=== PATIENT | female | born 1985 | race Caucasian/White ===

== ENCOUNTER 2016-12-09 08:16 | Day surgery (SDC) | payer MEDICAID ==
[~2016-12-09 08:16] MED LIST: ACETAMINOPHEN 1000MG/100 ML PREMIX IV ONE
[2016-12-09] MEDS ORDERED: FENTANYL PF 100MCG/2ML VIAL IV ONE (13:33)
[2016-12-09] MEDS ORDERED: OXYCODONE HCL/APAP 5MG/325MG TABLET PO ONE (13:33)
[2016-12-09] MEDS ORDERED: MEPERIDINE 50 MG/1 ML VIAL IVP ONE (13:50)
[2016-12-09] MEDS ORDERED: LIDOCAINE 2% MDV (20MG/ML) 20ML VIAL IV ONE (13:50)
[2016-12-09] MEDS ORDERED: SEVOFLURANE 250 ML INH ONE (13:50)
[2016-12-09] MEDS ORDERED: PROPOFOL 10 MG/ML VIAL IV ONE (13:50)
[2016-12-09] MEDS ORDERED: KETOROLAC 30 MG/ML VIAL IVP ONE (13:50)
--- NOTE | 2016-12-09 16:32 | Operative Note ---
DATE OF SURGERY: 12/09/16 PREOPERATIVE DIAGNOSIS: CARPAL TUNNEL SYNDROME OF THE LEFT WRIST. POSTOPERATIVE DIAGNOSIS: CARPAL TUNNEL SYNDROME OF THE LEFT WRIST. OPERATIVE PROCEDURE: DECOMPRESSION LEFT MEDIAN NERVE OF THE WRIST USING 3.5 LOOP MAGNIFICATION. SURGEON: PORFIRIO CUEVAS D.O. REFERRING PHYSICIAN: REJI MCCARTY M.D. DESCRIPTION: This 31-year-old female was taken to the Operating Room and placed in the supine position on the operating room table where general anesthesia was induced. The left upper extremity was elevated. It was prepped with Hibiclens and draped in the usual sterile fashion. It was exsanguinated and the tourniquet inflated to 250 mmHg. A palmar incision was then utilized dissection from the flexor crease of the wrist down to the base of the webspace of the thumb through the skin and subcutaneous tissue. The palmar fascia was then divided inline with the skin incision. The flexor retinaculum was then easily identified. It was punctured and split to its proximal margin and then with the contents of the carpal tunnel under direct vision, the transverse carpal ligament was transected along its ulnar border. The radial flap was raised to expose the entire median nerve under the transverse carpal ligament. The recurrent motor branch was easily identified and somewhat more ulnar than its normal position but still was intact. The nerve appeared to be grossly normal. The wound was irrigated and the tourniquet released. Hemostasis obtained with the electrocautery. The wound again irrigated with lactated Ringer solution. The wound was then closed with interrupted 6-0 nylon suture and sterile dressings were applied with the wrist in slight dorsal flexion and the thumb in an adducted position. Porfirio Cuevas D.O. Date & Time cc: Reji Mccarty M.D. JOB NUMBER: [id number] MTDD
== END 2016-12-09 11:20 | disposition home or self-care (01) ==
LOC: SUR 08:16
PROVIDERS: ATTEND Orthopaedic Surgery
DX: G56.02 Carpal tunnel syndrome, left upper limb (principal); E03.9 Hypothyroidism, unspecified; J44.9 Chronic obstructive pulmonary disease, unspecified; J45.909 Unspecified asthma, uncomplicated
CPT/HCPCS: 64721; 01810; J1885; J3010

== ENCOUNTER 2016-12-12 14:42 | Emergency (ER) | payer MEDICAID ==
--- NOTE | 2016-12-12 14:52 | Emergency Department Record ---
History of Present Illness - General Chief complaint: Extremity Problem Stated complaint: left hand sx 12/09/16 splint broke Time Seen by Provider: 12/12/16 14:52 Source: Patient Mode of Arrival: Ambulatory Limitations: No limitations - History of Present Illness Initial comments: The patient is here due to having wrist surgery 3 days ago and now she got her splint wet so she removed it. She denies any problems. MD Complaint: Other Onset/Timin -: Days(s) Location: Left, Hand History of Same: Yes Severity scale (1-10): 3 Quality: Aching Consistency: Constant - Related Data Home Medications Medication Instructions Recorded Confirmed Last Taken Albuterol Sulfate [Proair Hfa] 1 - 2 puff IH .EVERY 4-6 HOURS PRN 02/06/1612/12 1 Day Ago Beclomethasone Dipropionate [Qvar] 2 puff IH DAILY 02/06/16 12/12/16 1 Day Ago Levothyroxine Sodium [Synthroid] 125 mcg PO DAILY 02/06/16 12/12/16 1 Day Ago Gabapentin [Neurontin] 100 mg PO TID 07/09/16 12/12/16 1 Day Ago Oxycodone HCl/Acetaminophen 1 tab PO Q6H PRN 12/12/16 12/12/16 12/12/16 [Percocet 5mg/325mg] Allergies Allergy/AdvReac Type Severity Reaction Status Date / Time hydrocodone bitartrate Allergy Unknown PT UNSURE Verified 12/12/16 14:49 OF REACTION Travel Screening - Travel/Exposure Within Last 30 Days Have you traveled within the last 30 days?: No - Travel/Exposure Within Last Year Have you traveled outside the [place] in the last year?: No - Additonal Travel Details Have you been exposed to anyone with a communicable illness?: No - Travel Symptoms Symptom Screening: None Review of Systems Constitutional: Denies: Chills, Fever Eyes: Denies: Eye discharge ENT: Denies: Congestion Respiratory: Denies: Cough Past Medical History - SOCIAL HISTORY Smoking Status: Current every day smoker Alcohol Use: None Drug Use: None - RESPIRATORY Hx Respiratory Disorders: Yes Hx COPD: Yes Hx Pneumonia: Yes Hx Sleep Apnea: Yes Hx of CPAP: Yes (sometimes) - CARDIOVASCULAR Hx Cardio Disorders: Yes Hx CHF: Yes (after walking pneumonia; not sure of dx) Hx Hypertension: Yes Comment:: fluid around heart - NEURO Hx Neuro Disorders: Yes Hx Headaches: Yes Hx of Migraines: Yes - GI Hx GI Disorders: Yes Hx Reflux: Yes - Hx Genitourinary Disorders: No - ENDOCRINE Hx Endocrine Disorders: Yes Hx Diabetes: No Hx Thyroid Disease: Yes - MUSCULOSKELETAL Hx Musculoskeletal Disorders: Yes - PSYCH Hx Psych Problems: Yes Hx Behavior Problems: Yes (biplolar ? quit meds years ago?) Hx Depression: Yes - HEMATOLOGY/ONCOLOGY Hx Hematology/Oncology Disorders: No Family Medical History Any Significant Family History?: Yes Hx Cancer: Grandparents Hx Diabetes: Grandparents Hx Heart Disease: Grandparents *Heart Comment: heart failure Hx HTN: Father Hx Seizures: Grandparents Hx Stroke: Grandparents *Stroke Comment: grandmother Physical Exam - General General Appearance: Alert, Oriented x3, Cooperative, No acute distress - Head Head exam: Atraumatic, Normocephalic, Normal inspection - Eye Eye exam: Normal appearance, PERRL - Extremities Extremities exam: Other (The hand is NVI distally.). negative: Normal inspection (Post op changes to the anterior wrist due to the carpal tunnel surgery. No drainage or erythema present.) Course Vital Signs 12/12/16 14:44 Temperature 97.7 F Pulse Rate 92 H Respiratory 16 Rate Blood Pressure 125/82 Pulse Ox 99 - Reevaluation(s) Reevaluation #1: We did discuss the case with Dr. Dean and he would like the patient back in a splint and continue with her previous instructions. 12/12/16 15:01 Disposition Disposition: Discharge Clinical Impression: Encounter for Postoperative Wound Check Disposition: Home, Self-Care Condition: (1) Good Instructions: Cubital Tunnel Syndrome (ED) Additional Instructions: Continue your previous discharge post op instructions. Forms: Patient Portal Access Time of Disposition: 15:03
== END 2016-12-12 15:20 | disposition home or self-care (01) ==
LOC: ER 14:42
DX: Z46.89 Encounter for fitting and adjustment of other specified devices (principal)
CPT/HCPCS: 99282

== ENCOUNTER 2017-01-12 17:08 | Emergency (ER) | payer MEDICAID ==
--- NOTE | 2017-01-12 18:42 | Emergency Department Record ---
History of Present Illness - General Stated Complaint: HAND INJURY Time Seen by Provider: 01/12/17 18:36 Source: Patient Mode of Arrival: Ambulatory Limitations: No limitations - History of Present Illness Initial Comments: The patient is here due to L hand pain for 10 days since she fell on it. She did have a carpal tunnel surgery last month and now has a very small opening in the inferior incision area. She denies any numbness, tingling, fever or chills but is expressing a very small amount of purulent material from the opening in the wound. MD Complaint: Injury to:: Left, Hand Onset/Timin -: Days(s) - Related Data Home Medications Medication Instructions Recorded Confirmed Last Taken Albuterol Sulfate [Proair Hfa] 1 - 2 puff IH .EVERY 4-6 HOURS PRN 02/06/1612/1201/12/17 Beclomethasone Dipropionate [Qvar] 2 puff IH DAILY 02/06/16 12/12/16 01/12/17 Levothyroxine Sodium [Synthroid] 125 mcg PO DAILY 02/06/16 12/12/16 01/12/17 Gabapentin [Neurontin] 100 mg PO TID 07/09/16 12/12/16 01/12/17 Previous Rx's Medication Instructions Recorded Cephalexin [Keflex] 500 mg PO QID #28 cap 01/12/17 Allergies Allergy/AdvReac Type Severity Reaction Status Date / Time hydrocodone bitartrate Allergy Unknown PT UNSURE Verified 01/12/17 18:42 OF REACTION Review of Systems Constitutional: Denies: Chills, Fever Eyes: Denies: Eye discharge ENT: Denies: Congestion Respiratory: Denies: Cough, Dyspnea Past Medical History - SOCIAL HISTORY Smoking Status: Current every day smoker Drug Use: None - RESPIRATORY Hx Respiratory Disorders: Yes Hx COPD: Yes Hx Pneumonia: Yes Hx Sleep Apnea: Yes Hx of CPAP: Yes (sometimes) - CARDIOVASCULAR Hx Cardio Disorders: Yes Hx CHF: Yes (after walking pneumonia; not sure of dx) Hx Hypertension: Yes Comment:: fluid around heart - NEURO Hx Neuro Disorders: Yes Hx Headaches: Yes Hx of Migraines: Yes - GI Hx GI Disorders: Yes Hx Reflux: Yes - Hx Genitourinary Disorders: No - ENDOCRINE Hx Endocrine Disorders: Yes Hx Diabetes: No Hx Thyroid Disease: Yes - MUSCULOSKELETAL Hx Musculoskeletal Disorders: Yes - PSYCH Hx Psych Problems: Yes Hx Behavior Problems: Yes (biplolar ? quit meds years ago?) Hx Depression: Yes - HEMATOLOGY/ONCOLOGY Hx Hematology/Oncology Disorders: No Family Medical History Hx Cancer: Grandparents Hx Diabetes: Grandparents Hx Heart Disease: Grandparents *Heart Comment: heart failure Hx HTN: Father Hx Seizures: Grandparents Hx Stroke: Grandparents *Stroke Comment: grandmother Physical Exam - General General Appearance: Alert, Oriented x3, Cooperative, No acute distress - Head Head exam: Atraumatic, Normocephalic, Normal inspection - Eye Eye exam: Normal appearance, PERRL - Extremities Extremities exam: Full ROM, Tenderness (There is mild tenderness around the carpal tunnes incision area. There is no warmth, erythema, or any drainage present. The L hand is NVI.). negative: Normal inspection (There is a recent carpal tunnes surgery incision present over the proximal palmar area. There is no erythema, or swelling present.) Course - Reevaluation(s) Reevaluation #1: I did explain the xray results with the patient and the need for F/U. I also did discuss the case with Dr. Dean and he will see her the week after next for further evaluation. 01/12/17 19:06 Medical Decision Making - Data Complexity MDM Data: X-Ray Ordered and/or Reviewed - Radiology Data Radiology results: Report reviewed (L hand: Neg) Disposition Disposition: Discharge Clinical Impression: Postoperative Pain Disposition: Home, Self-Care Condition: (1) Good Instructions: Hand Sprain (ED) Additional Instructions: Please take Tylenol for pain and take the Keflex as directed. Please keep the hand wound clean and covered with Abx ointment during the day and open at night. Please see DR. Dean as directed. Return to the ER if worse. Prescriptions: Cephalexin [Keflex] 500 mg PO QID #28 cap Referrals: [facility] [Provider Group] Time of Disposition: 19:08
== END 2017-01-12 19:17 | disposition home or self-care (01) ==
LOC: ER 17:08
DX: G89.18 Other acute postprocedural pain (principal); M79.642 Pain in left hand
CPT/HCPCS: 99283

== ENCOUNTER 2017-01-20 20:21 | Emergency (ER) | payer MEDICAID ==
--- NOTE | 2017-01-20 21:14 | Emergency Department Record ---
History of Present Illness - General Chief complaint: Facial Swelling Stated complaint: SWELLONG IN FACE AND HANDS Time Seen by Provider: 01/20/17 20:57 Source: Patient Mode of Arrival: Ambulatory Limitations: No limitations - History of Present Illness Initial Comments: 31 yo female presents with a feeling of swelling in her face, hands and feet for about 10 days. She has had this at times in the past. It is worse in the mornings. No redness. No cough or shortness of breath. No history of a diagnosed cause of this in the past. She has been calling Dr Mccarty for an appointment. No cardiac history, no connective disease history, no renal or hepatic history. She if very fatigued. She is cold frequently. She states she is sleeping all day. The swelling improves as the day goes by then returns in the morning. MD Complaint: Facial swelling Exposure: Unknown Symptoms: Facial swelling - Related Data Home Medications Medication Instructions Recorded Confirmed Last Taken Albuterol Sulfate [Proair Hfa] 1 - 2 puff IH .EVERY 4-6 HOURS PRN 02/06/1601/2001/12/17 Beclomethasone Dipropionate [Qvar] 2 puff IH DAILY 02/06/16 01/20/17 01/12/17 Levothyroxine Sodium [Synthroid] 125 mcg PO DAILY 02/06/16 01/20/17 01/12/17 Gabapentin [Neurontin] 100 mg PO TID 07/09/16 01/20/17 01/12/17 Previous Rx's Medication Instructions Recorded Cephalexin [Keflex] 500 mg PO QID #28 cap 01/12/17 Allergies Allergy/AdvReac Type Severity Reaction Status Date / Time hydrocodone bitartrate Allergy Unknown PT UNSURE Verified 01/12/17 18:42 OF REACTION Travel Screening - Travel/Exposure Within Last 30 Days Have you traveled within the last 30 days?: No - Travel Symptoms Symptom Screening: None Review of Systems Constitutional: Reports: Malaise, Weakness. Denies: Chills, Fever Eyes: Denies: Eye discharge ENT: Denies: Congestion, Throat pain Respiratory: Denies: Cough, Dyspnea, Hemoptysis, Stridor, Wheezes Cardiovascular: Reports: Edema. Denies: Chest pain, Palpitations, Syncope Endocrine: Reports: Heat or cold intolerance. Denies: Fatigue Gastrointestinal: Reports: Constipation. Denies: Abdominal pain, Diarrhea, Nausea, Vomiting Genitourinary: Denies: Dysuria, Urgency Musculoskeletal: Denies: Arthralgia, Back pain, Myalgia Skin: Denies: Bruising, Change in color, Rash Neurological: Denies: Confusion, Headache Psychiatric: Reports: Other (Sleeps all day). Denies: Anxiety, Auditory hallucinations, Homicidal thoughts, Visual hallucinations Hematological/Lymphatic: Denies: Blood Clots, Easy bleeding, Easy bruising, Swollen glands Past Medical History - SOCIAL HISTORY Smoking Status: Current every day smoker - RESPIRATORY Hx Respiratory Disorders: Yes Hx COPD: Yes Hx Pneumonia: Yes Hx Sleep Apnea: Yes Hx of CPAP: Yes (sometimes) - CARDIOVASCULAR Hx Cardio Disorders: Yes Hx CHF: Yes (after walking pneumonia; not sure of dx) Hx Hypertension: Yes Comment:: fluid around heart - NEURO Hx Neuro Disorders: Yes Hx Headaches: Yes Hx of Migraines: Yes - GI Hx GI Disorders: Yes Hx Reflux: Yes - Hx Genitourinary Disorders: No - ENDOCRINE Hx Endocrine Disorders: Yes Hx Diabetes: No Hx Thyroid Disease: Yes - MUSCULOSKELETAL Hx Musculoskeletal Disorders: Yes - PSYCH Hx Psych Problems: Yes Hx Behavior Problems: Yes (biplolar ? quit meds years ago?) Hx Depression: Yes - HEMATOLOGY/ONCOLOGY Hx Hematology/Oncology Disorders: No Family Medical History Any Significant Family History?: Yes Hx Cancer: Grandparents Hx Diabetes: Grandparents Hx Heart Disease: Grandparents *Heart Comment: heart failure Hx HTN: Father Hx Seizures: Grandparents Hx Stroke: Grandparents *Stroke Comment: grandmother Physical Exam - General General Appearance: Alert, Oriented x3, Cooperative, No acute distress Limitations: No limitations - Head Head exam: Normal inspection. negative: Atraumatic - Eye Eye exam: PERRL, Periorbital swelling. negative: Normal appearance, Conjunctival injection, Periorbital tenderness - ENT ENT exam: Normal exam, Mucous membranes moist Ear exam: Normal external inspection Nasal Exam: Normal inspection Mouth exam: Normal external inspection Teeth exam: Normal inspection Throat exam: Normal inspection - Neck Neck exam: Normal inspection, Full ROM. negative: Tenderness - Respiratory Respiratory exam: Normal lung sounds bilaterally. negative: Rales, Respiratory distress, Rhonchi, Stridor, Wheezes - Cardiovascular Cardiovascular Exam: Regular rate, Normal rhythm, Normal heart sounds - GI/Abdominal GI/Abdominal exam: Soft. negative: Distended, Tenderness - Rectal Rectal exam: Deferred - exam: Deferred - Extremities Extremities exam: Normal inspection, Full ROM, Normal capillary refill, Other ( No pitting edema of the legs or hands). negative: Pedal edema, Tenderness - Back Back exam: Reports: Normal inspection, Full ROM, Other (No pitting edema). Denies: Muscle spasm, Rash noted, Tenderness - Neurological Neurological exam: Alert, Normal gait, Oriented X3, Reflexes normal - Psychiatric Psychiatric exam: Normal affect, Normal mood - Skin Skin exam: Dry, Intact, Normal color, Warm Course Vital Signs 01/20/17 20:48 Temperature 98.6 F Pulse Rate [ 76 Pulse Ox Probe] Respiratory 18 Rate Blood Pressure 119/84 [Left Arm] Pulse Ox 97 - Reevaluation(s) Reevaluation #1: No acute changes on the CBC, CMP, UA No protein in the urine 01/20/17 22:15 Reevaluation #2: The patient has a significantly elevated TSH She does not have any mental status changes, confusion, or overt signs to suggest thyroid coma She is very alert, sharp, well spoken and knowledgeable about her current state and PMHx. She has been hypothyroid since age 12. She has a history of Graves (5 years ago) and thyroid irradiation. 01/20/17 22:54 01/20/17 23:15 Reevaluation #3: I SHANNON Brown of [facility] endocrinology. He recommends the following Free T4, T# Place in 24 hour observation i the hospital Order Cortisol and ACTH STAT Then give Hydrocortizone 100mg Wait 5-6 hours then resume Synthroid at the normal dose of 125mcg Monitoring for tolerance and reactions, I called the lab The requested labs are send outs at this hospital This course of action not possible from [facility] given in takes 2-3 days to get results One Call called was back for transfer 01/20/17 23:37 01/20/17 23:42 Reevaluation #4: FT4 0.4 T4 4.15 T3 uptake 27 01/20/17 23:47 Reevaluation #5: I SHANNON Morgan of the Hospitalist Group We discussed the endocrine recommendations She accepts for transfer and treatment of the myxeda 01/21/17 00:16 Medical Decision Making - Lab Data Result diagrams: 01/20/17 21:19 01/20/17 21:19 Disposition Disposition: Transfer Clinical Impression: TSH elevation, Myxedema Edema Qualifiers: Edema type: unspecified Qualified Code(s): R60.9 - Edema, unspecified Hypothyroid Qualifiers: Hypothyroidism type: unspecified Qualified Code(s): E03.9 - Hypothyroidism, unspecified Disposition: Acute Care Hospital Transfer [facility] Reason For Transfer: Myxedema, special labs not available Accepting Physician: Time Discussed w/Accepting Physician: 00:19 Condition: (2) Stable Forms: Patient Portal Access Time of Disposition: 22:32
[2017-01-20 21:30] LABS: BASO % 1.6 % (0-6); EOS % 4.3 % (0-6); GRAN % 43.9 % (47-80); HEMATOCRIT 37.6 % (35.0-47.0); HEMOGLOBIN 13.3 gm/dl (11.6-16.0); LYMPH % 43.2 % (16-45); MEAN CELL VOLUME 91.7 fl (81-97); MEAN CORPUSCULAR HEMOGLOBIN 32.4 pg (27-33); MEAN CORPUSCULAR HGB CONC 35.4 g/dl (32-36); PLATELET COUNT 229 K/uL (130-400); RED CELL DISTRIBUTION WIDTH 14.6 % (11.5-14.5); WHITE BLOOD COUNT W/O DIFF 8.3 K/uL (4.2-12.2)
[2017-01-20 21:31] LABS: URINE APPEARANCE CLEAR; URINE BILIRUBIN NEGATIVE (NEGATIVE); URINE BLOOD TRACE-I (NEGATIVE); URINE COLOR YELLOW; URINE GLUCOSE (UA) NEGATIVE (NEGATIVE); URINE KETONE NEGATIVE (NEGATIVE); URINE LEUKOCYTE ESTERASE NEGATIVE (NEGATIVE); URINE NITRITE NEGATIVE (NEGATIVE); URINE PROTEIN NEGATIVE (NEGATIVE)
[2017-01-20 21:43] LABS: ALB/GLOB RATIO 1.5 (1.1-1.8); ALBUMIN 4.4 gm/dL (3.5-5.0); ALKALINE PHOSPHATASE 49 U/L (38-126); ALT/SGPT 56 U/L (9-52); AST/SGOT 48 U/L (14-36); BILIRUBIN,TOTAL 0.72 mg/dL (0.2-1.3); BLOOD UREA NITROGEN 9 mg/dL (7-17); CREATININE 0.8 mg/dL (0.52-1.04); EST GLOMERULAR FILTRATION RATE > 60 ml/min; GLUCOSE,RANDOM 105 mg/dL (70-110); TOTAL PROTEIN 7.3 gm/dL (6.3-8.2)
[2017-01-20 21:45] LABS: HCG,QUALITATIVE URINE NEGATIVE (NEGATIVE); URINE MUCUS HEAVY; URINE WBC 0 - 2 (0-2/hpf)
[2017-01-20 23:35] LABS: THYROXINE (T4) 4.15 ug/dl (5.53-11.0)
== END 2017-01-21 01:00 | disposition short-term general hospital (02) ==
LOC: ER 20:21
DX: R94.6 Abnormal results of thyroid function studies (principal); E03.9 Hypothyroidism, unspecified; R60.1 Generalized edema; R53.83 Other fatigue; J44.9 Chronic obstructive pulmonary disease, unspecified; I10 Essential (primary) hypertension; F17.210 Nicotine dependence, cigarettes, uncomplicated
CPT/HCPCS: 80053; 81001; 81025; 84436; 84439; 84443; 84479; 85025; 99285

== ENCOUNTER 2017-06-30 10:18 | Emergency (ER) | payer MEDICAID ==
[2017-06-30] MEDS ORDERED: ONDANSETRON HCL IV 4 MG/2 ML VIAL IV ONE (10:46)
[2017-06-30] MEDS ORDERED: 0.9 % SODIUM CHLORIDE 1,000 ML BAG IV ONE (10:46)
--- NOTE | 2017-06-30 10:51 | Emergency Department Record ---
History of Present Illness - General Chief Complaint: Abdominal Pain Stated Complaint: ABD PAIN Time Seen by Provider: 06/30/17 10:41 Source: Patient Mode of Arrival: Ambulatory Limitations: No limitations - History of Present Illness Initial Comments: The patient is here due to a 7 day hx of upper AP. She describes the pain as sharp and burning at times and it is associated intermittently with nausea, vomiting and diarrhea. She states if she eats anything solid she does vomit and there is blood present. She also has streaks of blood in her stools at times. There is no reported CP, SOB, fever, chills, or dysuria. She was evaluated at [facility] a week ago for the same issues and had normal labs and a CT that demonstrated a fatty liver. The patient has had her GB removed and has had a SEBAS in the past. MD Complaint: Abdominal pain Onset/Timin -: Week(s) Location: Epigastric, LUQ, RUQ Radiation: None Migration to: No migration Quality: Burning, Cramping Consistency: Intermittent Improves With: Nothing Worsens With: Eating Associated Symptoms: Hematemesis, Nausea, Vomiting - Related Data Patient : No Home Medications Medication Instructions Recorded Confirmed Last Taken Levothyroxine Sodium [Synthroid] 125 mcg PO DAILY 02/06/16 06/30/17 01/12/17 Pantoprazole Sodium [Protonix] 40 mg PO DAILY 06/30/17 06/30/17 Unknown Previous Rx's Medication Instructions Recorded Ondansetron [Zofran Odt] 4 mg SL .Q4-6H PRN #12 tab.rapdis 06/30/17 Sucralfate [Carafate] 1 gm PO QID #28 tablet 06/30/17 Allergies Allergy/AdvReac Type Severity Reaction Status Date / Time hydrocodone bitartrate Allergy Unknown PT UNSURE Verified 06/30/17 10:40 OF REACTION Travel Screening - Travel/Exposure Within Last 30 Days Have you traveled within the last 30 days?: No Review of Systems Constitutional: Denies: Chills, Fever Eyes: Denies: Eye discharge ENT: Denies: Congestion Respiratory: Denies: Cough, Dyspnea Past Medical History - SOCIAL HISTORY Smoking Status: Current every day smoker Alcohol Use: None Drug Use: None - RESPIRATORY Hx Respiratory Disorders: Yes Hx COPD: Yes Hx Pneumonia: Yes Hx Sleep Apnea: Yes Hx of CPAP: Yes (sometimes) - CARDIOVASCULAR Hx Cardio Disorders: Yes Hx Hypertension: Yes Comment:: fluid around heart - NEURO Hx Neuro Disorders: Yes Hx Headaches: Yes Hx of Migraines: Yes - GI Hx GI Disorders: Yes Hx Reflux: Yes - Hx Genitourinary Disorders: No - ENDOCRINE Hx Endocrine Disorders: Yes Hx Diabetes: No Hx Thyroid Disease: Yes - MUSCULOSKELETAL Hx Musculoskeletal Disorders: Yes - PSYCH Hx Psych Problems: Yes Hx Behavior Problems: Yes (biplolar ? quit meds years ago?) Hx Depression: Yes - HEMATOLOGY/ONCOLOGY Hx Hematology/Oncology Disorders: No Family Medical History Any Significant Family History?: Yes Hx Cancer: Grandparents Hx Diabetes: Grandparents Hx Heart Disease: Grandparents *Heart Comment: heart failure Hx HTN: Father Hx Seizures: Grandparents Hx Stroke: Grandparents *Stroke Comment: grandmother Physical Exam - General General Appearance: Alert, Oriented x3, Cooperative, No acute distress - Head Head exam: Atraumatic, Normocephalic, Normal inspection - Eye Eye exam: Normal appearance, PERRL - Neck Neck exam: Normal inspection, Full ROM. negative: Tenderness - Respiratory Respiratory exam: Normal lung sounds bilaterally. negative: Respiratory distress - Cardiovascular Cardiovascular Exam: Regular rate, Normal rhythm, Normal heart sounds - GI/Abdominal GI/Abdominal exam: Soft, Tenderness (There is mild epigastric tenderness present.). negative: Guarding, Rebound, Rigid - Rectal Rectal exam: Heme (-) stool, Normal inspection - Extremities Extremities exam: Normal inspection, Full ROM, Normal capillary refill. negative: Tenderness Course Vital Signs 06/30/17 10:35 Temperature 98.1 F Pulse Rate 70 Respiratory 20 Rate Blood Pressure 122/78 Pulse Ox 100 - Reevaluation(s) Reevaluation #1: The patient is doing well at this time. She does still complain of pain but only has very mild epigastric tenderness on exam. I did review her abdominal CT froma week ago and it only demonstrated a fatty liver. I believe the patient needs a GI doctor referral and will attempt to facilitate that. 06/30/17 11:34 Reevaluation #2: The patient is doing very well at this time. She denies any new pain or any significant discomfort at this time. I did discuss the test results with Dr. Mccarty and did recommend a GI referral which she agreed with. The patient is to be discharged on Carafate and is to see GI next week. 06/30/17 11:42 Medical Decision Making - Data Complexity MDM Data: Labs Ordered and/or Reviewed - Lab Data Result diagrams: 06/30/17 11:06 06/30/17 11:06 Disposition Disposition: Discharge Clinical Impression: Gastritis Qualifiers: Gastritis type: unspecified gastritis Chronicity: acute Gastritis bleeding: without bleeding Qualified Code(s): K29.00 - Acute gastritis without bleeding Disposition: Home, Self-Care Condition: (1) Good Instructions: Abdominal Pain (ED) Additional Instructions: Please continue your regular medicines and add the Zofran and Carafate. Please see Dr. Salcedo next week for further evaluation. Return to the ER for any increased pain, vomiting, bleeding or fever. Prescriptions: Ondansetron [Zofran Odt] 4 mg SL .Q4-6H PRN #12 tab.rapdis PRN Reason: Nausea Sucralfate [Carafate] 1 gm PO QID #28 tablet Referrals: [facility] [Provider Group] SELINA SALCEDO [MEDICAL DOCTOR] - Forms: Patient Portal Access Time of Disposition: 11:44 Quality - Quality Measures Quality Measures: N/A - Blood Pressure Screening View Details: Yes Blood Pressure Classification: Normal BP Reading Systolic Measurement: 106 Diastolic Measurement: 64 Screening for High Blood Pressure: < Normal BP, F/U Not Required > [G8783] Normal BP Follow-up Interventions: No follow-up required
[2017-06-30 11:16] LABS: EOS % 4.5 % (0-6); HEMATOCRIT 43.3 % (35.0-47.0); HEMOGLOBIN 14.5 gm/dl (11.6-16.0); LYMPH % 33.9 % (16-45); MEAN CELL VOLUME 91.2 fl (81-97); MEAN CORPUSCULAR HEMOGLOBIN 30.5 pg (27-33); MEAN CORPUSCULAR HGB CONC 33.5 g/dl (32-36); MEAN PLATELET VOLUME 10.4 fl (7.4-10.4); MONO % 10.6 % (0-9); PLATELET COUNT 248 K/uL (130-400); RED BLOOD COUNT 4.75 M/uL (3.80-5.40); RED CELL DISTRIBUTION WIDTH 14.3 % (11.5-14.5); WHITE BLOOD COUNT W/O DIFF 7.3 K/uL (4.2-12.2)
[2017-06-30 11:25] LABS: URINE APPEARANCE CLEAR; URINE BILIRUBIN NEGATIVE (NEGATIVE); URINE BLOOD TRACE-I (NEGATIVE); URINE COLOR YELLOW; URINE GLUCOSE (UA) NEGATIVE (NEGATIVE); URINE KETONE NEGATIVE (NEGATIVE); URINE LEUKOCYTE ESTERASE NEGATIVE (NEGATIVE); URINE NITRITE POSITIVE (NEGATIVE); URINE PROTEIN NEGATIVE (NEGATIVE); URINE UROBILINOGEN 0.2 E.U./dL (0.20 - 1.00)
[2017-06-30 11:27] LABS: ALBUMIN 4.5 gm/dL (3.5-5.0); ALKALINE PHOSPHATASE 56 U/L (38-126); ALT/SGPT 73 U/L (9-52); AMYLASE 66 U/L (30-110); ANION GAP 8.5 (7-16); AST/SGOT 59 U/L (14-36); BILIRUBIN,TOTAL 1.14 mg/dL (0.2-1.3); BLOOD UREA NITROGEN 9 mg/dL (7-17); CARBON DIOXIDE 22.5 mmol/L (22-30); CREATININE 0.8 mg/dL (0.52-1.04); EST GLOMERULAR FILTRATION RATE > 60 ml/min; GLUCOSE,RANDOM 93 mg/dL (70-110); LIPASE 155 U/L (23-300); TOTAL PROTEIN 7.2 gm/dL (6.3-8.2)
[2017-06-30 11:29] LABS: URINE RBC 0 - 2 (NONE SEEN)
[2017-06-30 11:30] LABS: URINE BACTERIA 1+; URINE EPITHELIAL CELLS 0 - 2 (FEW); URINE MUCUS LIGHT; URINE WBC NONE SEEN (0-2/hpf)
[2017-06-30] MEDS ORDERED: SUCRALFATE 1 G/10 ML UD PO ONE (11:36)
== END 2017-06-30 11:52 | disposition home or self-care (01) ==
LOC: ER 10:18
DX: K29.00 Acute gastritis without bleeding (principal); R10.13 Epigastric pain; K92.0 Hematemesis; R11.2 Nausea with vomiting, unspecified; R19.7 Diarrhea, unspecified
CPT/HCPCS: 99284 ×2; 96374; 96361; 82150; 83690; 85025; 80076; 80048; 81001; 84703; J2405; J7030

== ENCOUNTER 2017-07-15 10:18 | Day surgery (SDC) | payer MEDICAID ==
[2017-07-15] MEDS ORDERED: LIDOCAINE 2% MDV (20MG/ML) 20ML VIAL IV ONE (13:46)
[2017-07-15] MEDS ORDERED: FENTANYL PF 100MCG/2ML VIAL IV ONE (13:46)
[2017-07-15] MEDS ORDERED: PROPOFOL 10 MG/ML VIAL IV ONE (13:46)
[2017-07-15] MEDS ORDERED: MIDAZOLAM HCL 2MG/2ML VIAL IV ONE (13:46)
--- NOTE | 2017-07-20 16:30 | Operative Note ---
DATE OF SURGERY: 07/15/2017 REQUESTING PHYSICIAN: Ronel Mccarty MD SURGEON: Skip Salcedo MD POSTOPERATIVE DIAGNOSES: 1. Mild gastritis. 2. Normal esophagus and duodenum. 3. Normal colonic and terminal ileal mucosa with no neoplastic or ulcerative lesions. OPERATION: 1. ESOPHAGOGASTRODUODENOSCOPY. 2. COLONOSCOPY and exam. REASON FOR PROCEDURE: This is a 32-year-old female with a history of abdominal pain and chronic diarrhea presenting for both esophagogastroduodenoscopy and colonoscopy. SEDATION: Sedation as per anesthesia. Pulse oximetry was monitored throughout the duration of the procedure to maintain O2 saturation of 90% or greater. Supplemental oxygen was administered via nasal cannula. Cardiac and vital signs were monitored throughout the duration of the procedure and they were stable. PROCEDURE: Description of the procedures of esophagogastroduodenoscopy and colonoscopy, risks and alternatives to the procedures including the risk of bleeding and perforation among others were explained to the patient who voiced understanding and decided to proceed. Physical examination was performed and the patient was found stable for sedation. The patient was then placed in the left lateral position and sedation was initiated. A plastic bite block was inserted into the oral cavity. A lubricated Olympus GIF-180 gastroscope was then placed through the posterior oropharynx and under direct visualization was advanced through the proximal esophagus without difficulty. The esophageal mucosa was carefully examined upon insertion of the gastroscope. The proximal, mid and distal esophageal mucosa appeared normal. The gastroscope was then advanced to the stomach. Serial examination of the stomach revealed diffuse erythema along the gastric body and antrum but no ulcers were noted. The gastroscope was then advanced to the descending duodenum without difficulty. The duodenal bulb and descending duodenal mucosa appeared normal. The gastroscope was then withdrawn into the stomach and retroflexion was performed. There were no other lesions noted. Multiple duodenal and gastric biopsies were obtained. The patient remained with stable vital signs and was repositioned for colonoscopy. Digital rectal exam was performed and showed small external hemorrhoids with no palpable rectal masses. A lubricated Olympus PCF-180AL colonoscope was then inserted into the rectum under direct visualization and was advanced to the cecum without difficulty. The ileocecal valve and appendiceal orifice were identified and photographed. The colonic mucosa was carefully examined upon insertion of the colonoscope. There were no lesions noted. The ileocecal valve was intubated and terminal ileal mucosa was inspected for about 10 cm and it appeared normal. The colonoscope was then withdrawn while carefully examining the colonic mucosal surfaces. No other lesions were noted. Random colon biopsies were obtained to rule out microscopic colitis. In the rectum on retroflexion, grade 1 internal hemorrhoids were noted. The colonoscope was then withdrawn and the procedure was terminated. The patient tolerated the procedure well without any complications. The patient remained with stable vital signs and was sent to the recovery room. PLAN AND RECOMMENDATIONS: 1. She will be on a high-fiber diet. 2. The patient will have repeat office visit with me in about 6 weeks. Thank you for allowing me to participate in the care of this patient. CC: Ronel Mccarty MD [facility] [place] DIVISIONKourtney
== END 2017-07-15 12:12 | disposition home or self-care (01) ==
LOC: HOP 10:18
PROVIDERS: ATTEND Internal Medicine Gastroenterology
DX: R10.9 Unspecified abdominal pain (principal); K52.9 Noninfective gastroenteritis and colitis, unspecified; K29.70 Gastritis, unspecified, without bleeding; K64.0 First degree hemorrhoids; K64.4 Residual hemorrhoidal skin tags

== ENCOUNTER 2017-11-16 13:26 | Emergency (ER) | payer MEDICAID ==
[2017-11-16] MEDS ORDERED: ONDANSETRON HCL IV 4 MG/2 ML VIAL IV ONE (14:02)
[2017-11-16] MEDS ORDERED: 0.9 % SODIUM CHLORIDE 1,000 ML BAG IV ONE ×2 (14:02→15:08)
--- NOTE | 2017-11-16 14:02 | Emergency Department Record ---
History of Present Illness - General Chief complaint: Nausea, Vomiting, Diarrhea Stated complaint: N/V/D Time Seen by Provider: 11/16/17 13:57 Source: Patient Mode of Arrival: Ambulatory Limitations: No limitations - History of Present Illness Initial comments: pt has had vomiting and diarrhea since 329 complaint: Diarrhea, Nausea, Vomiting -: Hour(s) Description of Vomiting: Other Location: RUQ Severity scale (1-10): 7 Quality: Cramping Consistency: Intermittent Associated Symptoms: Nausea/vomiting - Related Data Previous Rx's Medication Instructions Recorded Sucralfate [Carafate] 1 gm PO QID #28 tablet 06/30/17 Allergies Allergy/AdvReac Type Severity Reaction Status Date / Time hydrocodone bitartrate Allergy Unknown PT UNSURE Verified 11/16/17 13:37 OF REACTION Travel Screening - Travel/Exposure Within Last 30 Days Have you traveled within the last 30 days?: No Review of Systems Reviewed: No additional complaints except as noted below Constitutional: Reports: As per HPI. Denies: Chills, Fever, Malaise, Night sweats, Weakness, Weight change Eyes: Reports: As per HPI. Denies: Eye discharge, Eye pain, Photophobia, Vision change ENT: Reports: As per HPI. Denies: Congestion, Dental pain, Ear pain, Epistaxis , Hearing loss, Throat pain Respiratory: Reports: As per HPI. Denies: Cough, Dyspnea, Hemoptysis, Stridor, Wheezes Cardiovascular: Reports: As per HPI. Denies: Arrhythmia, Chest pain, Dyspnea on exertion, Edema, Murmurs, Orthopnea, Palpitations, Paroxysmal nocturnal dyspnea, Rheumatic Fever, Syncope Endocrine: Reports: As per HPI. Denies: Fatigue, Heat or cold intolerance, Polydipsia, Polyuria Gastrointestinal: Reports: As per HPI. Denies: Abdominal pain, Constipation, Diarrhea, Hematemesis, Hematochezia, Melena, Nausea, Vomiting Genitourinary: Reports: As per HPI. Denies: Abnormal menses, Discharge, Dyspareunia, Dysuria, Frequency, Hematuria, Incontinence, Retention, Urgency Musculoskeletal: Reports: As per HPI. Denies: Arthralgia, Back pain, Gout, Joint swelling, Myalgia, Neck pain Skin: Reports: As per HPI. Denies: Bruising, Change in color, Change in hair/ nails, Lesions, Pruritus, Rash Neurological: Reports: As per HPI. Denies: Abnormal gait, Confusion, Headache, Numbness, Paresthesias, Seizure, Tingling, Tremors, Vertigo, Weakness Psychiatric: Reports: As per HPI. Denies: Anxiety, Auditory hallucinations, Depression, Homicidal thoughts, Suicidal thoughts, Visual hallucinations Hematological/Lymphatic: Reports: As per HPI. Denies: Anemia, Blood Clots, Easy bleeding, Easy bruising, Swollen glands Past Medical History - SOCIAL HISTORY Smoking Status: Current every day smoker Alcohol Use: None Drug Use: None - RESPIRATORY Hx Respiratory Disorders: Yes Hx COPD: Yes Hx Pneumonia: Yes Hx Sleep Apnea: Yes Hx of CPAP: Yes (sometimes) - CARDIOVASCULAR Hx Cardio Disorders: No Comment:: n/a - NEURO Hx Neuro Disorders: Yes Hx Headaches: Yes Hx of Migraines: Yes - GI Hx GI Disorders: Yes Hx Abdominal Pain: Yes Hx Reflux: Yes Hx Nausea/Vomiting: Yes Hx Rectal Bleeding: Yes - Hx Genitourinary Disorders: No - ENDOCRINE Hx Endocrine Disorders: Yes Hx Diabetes: No Hx Thyroid Disease: Yes - MUSCULOSKELETAL Hx Musculoskeletal Disorders: Yes - PSYCH Hx Psych Problems: Yes Hx Behavior Problems: Yes (biplolar ? quit meds years ago?) Hx Depression: Yes - HEMATOLOGY/ONCOLOGY Hx Hematology/Oncology Disorders: No Family Medical History Any Significant Family History?: Yes Hx Cancer: Grandparents Hx Diabetes: Grandparents Hx Heart Disease: Grandparents *Heart Comment: heart failure Hx HTN: Father Hx Seizures: Grandparents Hx Stroke: Grandparents *Stroke Comment: grandmother Physical Exam - General General Appearance: Alert, Oriented x3, Cooperative, No acute distress - Head Head exam: Normal inspection - Eye Eye exam: Normal appearance, PERRL, EOMI Pupils: Normal accommodation - ENT ENT exam: Normal exam, Mucous membranes moist, Normal external ear exam, Normal orophraynx, TM's normal bilaterally Ear exam: Normal external inspection. negative: External canal tenderness Nasal Exam: Normal inspection. negative: Discharge, Sinus tenderness Mouth exam: Normal external inspection, Tongue normal Teeth exam: Normal inspection. negative: Dental caries Throat exam: Normal inspection. negative: Tonsillar erythema, Tonsillar exudate - Neck Neck exam: Normal inspection, Full ROM. negative: Tenderness - Respiratory Respiratory exam: Normal lung sounds bilaterally. negative: Respiratory distress - Cardiovascular Cardiovascular Exam: Regular rate, Normal rhythm, Normal heart sounds - GI/Abdominal GI/Abdominal exam: Soft, Normal bowel sounds. negative: Tenderness - Rectal Rectal exam: Deferred - exam: Deferred - Extremities Extremities exam: Normal inspection, Full ROM, Normal capillary refill. negative: Tenderness - Back Back exam: Reports: Normal inspection, Full ROM. Denies: Muscle spasm, Rash noted, Tenderness - Neurological Neurological exam: Alert, CN II-XII intact, Normal gait, Oriented X3 - Psychiatric Psychiatric exam: Normal affect, Normal mood - Skin Skin exam: Dry, Intact, Normal color, Warm Course Vital Signs 11/16/17 13:31 Temperature 97.8 F Pulse Rate 100 H Respiratory 18 Rate Blood Pressure 107/78 Pulse Ox 100 - Reevaluation(s) Reevaluation #1: 11/16/17 17:28 pt states that she has r flank pain Medical Decision Making - Lab Data Result diagrams: 11/16/17 Unknown 11/16/17 Unknown Disposition Disposition: Discharge Clinical Impression: Vomiting Qualifiers: Vomiting type: unspecified Vomiting Intractability: non-intractable Nausea presence: with nausea Qualified Code(s): R11.2 - Nausea with vomiting, unspecified Diarrhea Qualifiers: Diarrhea type: unspecified type Qualified Code(s): R19.7 - Diarrhea, unspecified Disposition: Home, Self-Care Condition: (1) Good Instructions: Acute Nausea and Vomiting (ED), Acute Diarrhea (ED) Additional Instructions: follow up with family doctor. return sooner if worse Forms: Patient Portal Access Quality - Quality Measures Quality Measures: N/A - Blood Pressure Screening Does Patient Have Any of the Following: No Blood Pressure Classification: Normal BP Reading Systolic Measurement: 107 Diastolic Measurement: 78 Screening for High Blood Pressure: < Normal BP, F/U Not Required > [G8783]
[2017-11-16 14:19] LABS: HEMATOCRIT 47.1 % (35.0-47.0); MEAN CELL VOLUME 92.4 fl (81-97); MEAN CORPUSCULAR HEMOGLOBIN 31.4 pg (27-33); MEAN PLATELET VOLUME 10.1 fl (7.4-10.4); PLATELET COUNT 274 K/uL (130-400); RED CELL DISTRIBUTION WIDTH 14.7 % (11.5-14.5); URINE APPEARANCE CLEAR; URINE BILIRUBIN SMALL (NEGATIVE); URINE BLOOD TRACE-I (NEGATIVE); URINE COLOR YELLOW; URINE GLUCOSE (UA) NEGATIVE (NEGATIVE); URINE KETONE NEGATIVE (NEGATIVE); URINE LEUKOCYTE ESTERASE NEGATIVE (NEGATIVE); URINE NITRITE NEGATIVE (NEGATIVE); URINE PROTEIN NEGATIVE (NEGATIVE); WHITE BLOOD COUNT W/O DIFF 10.9 K/uL (4.2-12.2)
[2017-11-16 14:28] LABS: URINE MUCUS MODERATE
[2017-11-16 14:31] LABS: BLOOD UREA NITROGEN 10 mg/dL (6-20); CREATININE 0.7 mg/dL (0.5-0.9); EST GLOMERULAR FILTRATION RATE > 60 mL/min
[2017-11-16 14:34] LABS: GLUCOSE,RANDOM 78 mg/dL (74-109)
[2017-11-16 14:37] LABS: ALKALINE PHOSPHATASE 77 U/L (35-104); ALT/SGPT 18 U/L (<33); AST/SGOT 21 U/L (10.0-35.0); LIPASE 38 U/L (13-60)
[2017-11-16 14:38] LABS: ALB/GLOB RATIO 1.7 (1.1-1.8)
[2017-11-16] MEDS ORDERED: KETOROLAC 30 MG/ML VIAL IVP ONE (16:25)
--- NOTE | 2017-11-17 07:56 | CT SCAN REPORT ---
EXAM: CT SCAN OF THE ABDOMEN AND PELVIS WITHOUT CONTRAST HISTORY: NAUSEA, VOMITING, AND DIARRHEA SINCE THIS MORNING. LOW BACK PAIN WITH RADIATION TO THE RIGHT SIDE. TECHNIQUE: Standard CT imaging of the abdomen and pelvis was performed without contrast. Comparison: 03/18/16. FINDINGS: There is mild atelectasis at both lung bases. The lung bases are otherwise clear. There is mild diffuse fatty infiltration of the liver. The gallbladder is surgically absent. There is no biliary ductal dilatation. The pancreas, spleen, and adrenal glands are normal. The kidneys , ureters and urinary bladder are normal. The aorta is normal in caliber. There is no lymphadenopathy. The stomach and epigastrium are normal. The large and small bowel loops including the appendix are normal. There is no pneumoperitoneum or ascites. Small functional follicles are present within the left ovary. The uterus is surgically absent. The abdominal wall is unremarkable. There are no acute osseous abnormalities. IMPRESSION: 1. NO ACUTE INTRAABDOMINAL PATHOLOGY. 2. STATUS POST CHOLECYSTECTOMY AND HYSTERECTOMY. [facility]OB [facility]BER: [id number] [facility]
== END 2017-11-16 17:40 | disposition home or self-care (01) ==
LOC: ER 13:26
DX: R11.2 Nausea with vomiting, unspecified (principal); R19.7 Diarrhea, unspecified
CPT/HCPCS: 99284 ×2; 96374; 96375; 83690; 80053; 81001; 85027; 74176; J1885; J2405; J7030

== ENCOUNTER 2017-11-27 14:15 | Emergency (ER) | payer MEDICAID ==
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
== END 2017-11-27 16:37 | disposition home or self-care (01) ==
LOC: ER 14:15
DX: S60.222A Contusion of left hand, initial encounter (principal); V49.9XXA Car occupant (driver) (passenger) injured in unspecified traffic accident, initial encounter
CPT/HCPCS: 99283

== ENCOUNTER 2017-12-27 09:28 | Emergency (ER) | payer MEDICAID ==
[2017-12-27] MEDS ORDERED: KETOROLAC 30 MG/ML VIAL IM ONE (10:35)
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
--- NOTE | 2017-12-27 12:36 | Emergency Department Record ---
History of Present Illness - General Chief complaint: Pain Stated complaint: HIP PAIN Time Seen by Provider: 12/27/17 10:30 Source: Patient Mode of Arrival: Ambulatory Limitations: No limitations - History of Present Illness Onset/Timin -: Week(s) Location: Right, Other Radiation: Proximal Severity scale (1-10): 7 Quality: Aching, Sharp Consistency: Constant Improves with: Nothing Worsens with: Walking, Weight bearing Associated Symptoms: Denies other symptoms - Related Data Previous Rx's Medication Instructions Recorded Cyclobenzaprine HCl [Flexeril] 10 mg PO TID #10 tablet 12/27/17 Hydrocodone/Acetaminophen [[place] 1 each PO Q6HR #7 tablet 12/27/17 5-325 Tablet] Ibuprofen [Motrin 600Mg] 600 mg PO Q6H #20 tablet 12/27/17 Allergies Allergy/AdvReac Type Severity Reaction Status Date / Time hydrocodone bitartrate Allergy Unknown pt states Verified 12/27/17 09:58 she passes out and vomits Travel Screening - Travel/Exposure Within Last 30 Days Have you traveled within the last 30 days?: No - Travel/Exposure Within Last Year Have you traveled outside the [place] in the last year?: No - Additonal Travel Details Have you been exposed to anyone with a communicable illness?: No - Travel Symptoms Symptom Screening: None Review of Systems Constitutional: Reports: As per HPI. Denies: Chills, Fever, Malaise, Night sweats, Weakness, Weight change Eyes: Reports: As per HPI. Denies: Eye discharge, Eye pain, Photophobia, Vision change ENT: Reports: As per HPI. Denies: Congestion, Dental pain, Ear pain, Epistaxis , Hearing loss, Throat pain Respiratory: Reports: As per HPI. Denies: Cough, Dyspnea, Hemoptysis, Stridor, Wheezes Cardiovascular: Reports: As per HPI. Denies: Arrhythmia, Chest pain, Dyspnea on exertion, Edema, Murmurs, Orthopnea, Palpitations, Paroxysmal nocturnal dyspnea, Rheumatic Fever, Syncope Endocrine: Reports: As per HPI. Denies: Fatigue, Heat or cold intolerance, Polydipsia, Polyuria Gastrointestinal: Reports: As per HPI. Denies: Abdominal pain, Constipation, Diarrhea, Hematemesis, Hematochezia, Melena, Nausea, Vomiting Genitourinary: Reports: As per HPI. Denies: Abnormal menses, Discharge, Dyspareunia, Dysuria, Frequency, Hematuria, Incontinence, Retention, Urgency Musculoskeletal: Reports: As per HPI, Back pain. Denies: Arthralgia, Gout, Joint swelling, Myalgia, Neck pain Skin: Reports: As per HPI. Denies: Bruising, Change in color, Change in hair/ nails, Lesions, Pruritus, Rash Neurological: Reports: As per HPI. Denies: Abnormal gait, Confusion, Headache, Numbness, Paresthesias, Seizure, Tingling, Tremors, Vertigo, Weakness Psychiatric: Reports: As per HPI. Denies: Anxiety, Auditory hallucinations, Depression, Homicidal thoughts, Suicidal thoughts, Visual hallucinations Hematological/Lymphatic: Reports: As per HPI. Denies: Anemia, Blood Clots, Easy bleeding, Easy bruising, Swollen glands Past Medical History - SOCIAL HISTORY Smoking Status: Light tobacco smoker (<10/day) Alcohol Use: Rare Drug Use: None - RESPIRATORY Hx Respiratory Disorders: Yes Hx COPD: Yes Hx Pneumonia: Yes Hx Sleep Apnea: Yes Hx of CPAP: Yes (sometimes) - CARDIOVASCULAR Hx Cardio Disorders: No Comment:: n/a - NEURO Hx Neuro Disorders: Yes Hx Headaches: Yes Hx of Migraines: Yes - GI Hx GI Disorders: Yes Hx Abdominal Pain: Yes Hx Reflux: Yes Hx Nausea/Vomiting: Yes Hx Rectal Bleeding: Yes - Hx Genitourinary Disorders: No - ENDOCRINE Hx Endocrine Disorders: Yes Hx Diabetes: No Hx Thyroid Disease: Yes - MUSCULOSKELETAL Hx Musculoskeletal Disorders: Yes - PSYCH Hx Psych Problems: Yes Hx Anxiety: Yes Hx Behavior Problems: Yes Hx Depression: Yes - HEMATOLOGY/ONCOLOGY Hx Hematology/Oncology Disorders: No Family Medical History Any Significant Family History?: No Hx Cancer: Grandparents Hx Diabetes: Grandparents Hx Heart Disease: Grandparents *Heart Comment: heart failure Hx HTN: Father Hx Seizures: Grandparents Hx Stroke: Grandparents *Stroke Comment: grandmother Physical Exam - General Limitations: No limitations Course Vital Signs 12/27/17 09:49 Temperature 98.8 F Pulse Rate 74 Respiratory 1 L Rate Blood Pressure 116/81 Pulse Ox 98 Disposition Clinical Impression: Radicular low back pain Hip strain Qualifiers: Encounter type: initial encounter Laterality: right Qualified Code(s): S76.011A - Strain of muscle, fascia and tendon of right hip, initial encounter Hip bursitis Qualifiers: Hip bursitis location: trochanteric bursitis Laterality: right Qualified Code(s ): M70.61 - Trochanteric bursitis, right hip Disposition: Home, Self-Care Condition: (1) Good Instructions: Hip Bursitis (ED), Hip Sprain (ED), Lumbar Radiculopathy (ED) Additional Instructions: ice and moist heat to sore areas. follow up with family doctor. return sooner if worse Prescriptions: Hydrocodone/Acetaminophen [[place] 5-325 Tablet] 1 each PO Q6HR #7 tablet Cyclobenzaprine HCl [Flexeril] 10 mg PO TID #10 tablet Ibuprofen [Motrin 600Mg] 600 mg PO Q6H #20 tablet Forms: Patient Portal Access, Return to Work/School Quality - Quality Measures Quality Measures: N/A - Blood Pressure Screening Does Patient Have Any of the Following: No Blood Pressure Classification: Pre-Hypertensive BP Reading Systolic Measurement: 116 Diastolic Measurement: 81 Screening for High Blood Pressure: < Pre-Hypertensive BP, F/U Documented > [ G8950] Pre-Hypertensive Follow-up Interventions: Follow-up with rescreen every year.
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
--- NOTE | 2017-12-29 14:10 | Emergency Department Record ---
History of Present Illness - General Chief complaint: Pain Stated complaint: HIP PAIN Time Seen by Provider: 12/27/17 10:30 Source: Patient Mode of Arrival: Ambulatory Limitations: No limitations - History of Present Illness Onset/Timin -: Week(s) Location: Right, Other Radiation: Proximal Severity scale (1-10): 7 Quality: Aching, Sharp Consistency: Constant Improves with: Nothing Worsens with: Walking, Weight bearing Associated Symptoms: Denies other symptoms - Related Data Previous Rx's Medication Instructions Recorded Cyclobenzaprine HCl [Flexeril] 10 mg PO TID #10 tablet 12/27/17 Hydrocodone/Acetaminophen [[place] 1 each PO Q6HR #7 tablet 12/27/17 5-325 Tablet] Ibuprofen [Motrin 600Mg] 600 mg PO Q6H #20 tablet 12/27/17 Allergies Allergy/AdvReac Type Severity Reaction Status Date / Time hydrocodone bitartrate Allergy Unknown pt states Verified 12/27/17 09:58 she passes out and vomits Travel Screening - Travel/Exposure Within Last 30 Days Have you traveled within the last 30 days?: No - Travel/Exposure Within Last Year Have you traveled outside the [place] in the last year?: No - Additonal Travel Details Have you been exposed to anyone with a communicable illness?: No - Travel Symptoms Symptom Screening: None Review of Systems Constitutional: Reports: As per HPI. Denies: Chills, Fever, Malaise, Night sweats, Weakness, Weight change Eyes: Reports: As per HPI. Denies: Eye discharge, Eye pain, Photophobia, Vision change ENT: Reports: As per HPI. Denies: Congestion, Dental pain, Ear pain, Epistaxis , Hearing loss, Throat pain Respiratory: Reports: As per HPI. Denies: Cough, Dyspnea, Hemoptysis, Stridor, Wheezes Cardiovascular: Reports: As per HPI. Denies: Arrhythmia, Chest pain, Dyspnea on exertion, Edema, Murmurs, Orthopnea, Palpitations, Paroxysmal nocturnal dyspnea, Rheumatic Fever, Syncope Endocrine: Reports: As per HPI. Denies: Fatigue, Heat or cold intolerance, Polydipsia, Polyuria Gastrointestinal: Reports: As per HPI. Denies: Abdominal pain, Constipation, Diarrhea, Hematemesis, Hematochezia, Melena, Nausea, Vomiting Genitourinary: Reports: As per HPI. Denies: Abnormal menses, Discharge, Dyspareunia, Dysuria, Frequency, Hematuria, Incontinence, Retention, Urgency Musculoskeletal: Reports: As per HPI, Back pain. Denies: Arthralgia, Gout, Joint swelling, Myalgia, Neck pain Skin: Reports: As per HPI. Denies: Bruising, Change in color, Change in hair/ nails, Lesions, Pruritus, Rash Neurological: Reports: As per HPI. Denies: Abnormal gait, Confusion, Headache, Numbness, Paresthesias, Seizure, Tingling, Tremors, Vertigo, Weakness Psychiatric: Reports: As per HPI. Denies: Anxiety, Auditory hallucinations, Depression, Homicidal thoughts, Suicidal thoughts, Visual hallucinations Hematological/Lymphatic: Reports: As per HPI. Denies: Anemia, Blood Clots, Easy bleeding, Easy bruising, Swollen glands Past Medical History - SOCIAL HISTORY Smoking Status: Light tobacco smoker (<10/day) Alcohol Use: Rare Drug Use: None - RESPIRATORY Hx Respiratory Disorders: Yes Hx COPD: Yes Hx Pneumonia: Yes Hx Sleep Apnea: Yes Hx of CPAP: Yes (sometimes) - CARDIOVASCULAR Hx Cardio Disorders: No Comment:: n/a - NEURO Hx Neuro Disorders: Yes Hx Headaches: Yes Hx of Migraines: Yes - GI Hx GI Disorders: Yes Hx Abdominal Pain: Yes Hx Reflux: Yes Hx Nausea/Vomiting: Yes Hx Rectal Bleeding: Yes - Hx Genitourinary Disorders: No - ENDOCRINE Hx Endocrine Disorders: Yes Hx Diabetes: No Hx Thyroid Disease: Yes - MUSCULOSKELETAL Hx Musculoskeletal Disorders: Yes - PSYCH Hx Psych Problems: Yes Hx Anxiety: Yes Hx Behavior Problems: Yes Hx Depression: Yes - HEMATOLOGY/ONCOLOGY Hx Hematology/Oncology Disorders: No Family Medical History Any Significant Family History?: No Hx Cancer: Grandparents Hx Diabetes: Grandparents Hx Heart Disease: Grandparents *Heart Comment: heart failure Hx HTN: Father Hx Seizures: Grandparents Hx Stroke: Grandparents *Stroke Comment: grandmother Physical Exam - General General Appearance: Alert, Oriented x3, Cooperative, Mild distress Limitations: No limitations - Head Head exam: Normal inspection - Eye Eye exam: Normal appearance, PERRL, EOMI Pupils: Normal accommodation - ENT ENT exam: Normal exam, Mucous membranes moist, Normal external ear exam, Normal orophraynx, TM's normal bilaterally Ear exam: Normal external inspection. negative: External canal tenderness Nasal Exam: Normal inspection. negative: Discharge, Sinus tenderness Mouth exam: Normal external inspection, Tongue normal Teeth exam: Normal inspection. negative: Dental caries Throat exam: Normal inspection. negative: Tonsillar erythema, Tonsillar exudate - Neck Neck exam: Normal inspection, Full ROM. negative: Tenderness - Respiratory Respiratory exam: Normal lung sounds bilaterally. negative: Respiratory distress - Cardiovascular Cardiovascular Exam: Regular rate, Normal rhythm, Normal heart sounds - GI/Abdominal GI/Abdominal exam: Soft, Normal bowel sounds. negative: Tenderness - Rectal Rectal exam: Deferred - exam: Deferred - Extremities Extremities exam: Normal inspection, Full ROM, Normal capillary refill, Tenderness (over busa of hip) - Back Back exam: Reports: Normal inspection, Full ROM. Denies: Muscle spasm, Rash noted, Tenderness - Neurological Neurological exam: Alert, CN II-XII intact, Normal gait, Oriented X3 - Psychiatric Psychiatric exam: Normal affect, Normal mood - Skin Skin exam: Dry, Intact, Normal color, Warm Course Vital Signs 12/27/17 12/27/17 09:49 12:39 Temperature 98.8 F 98.8 F Pulse Rate 74 73 Respiratory 1 L 16 Rate Blood Pressure 116/81 123/73 Pulse Ox 98 98 Disposition Clinical Impression: Radicular low back pain Hip strain Qualifiers: Encounter type: initial encounter Laterality: right Qualified Code(s): S76.011A - Strain of muscle, fascia and tendon of right hip, initial encounter Hip bursitis Qualifiers: Hip bursitis location: trochanteric bursitis Laterality: right Qualified Code(s ): M70.61 - Trochanteric bursitis, right hip Disposition: Home, Self-Care Condition: (1) Good Instructions: Hip Bursitis (ED), Hip Sprain (ED), Lumbar Radiculopathy (ED) Additional Instructions: ice and moist heat to sore areas. follow up with family doctor. return sooner if worse Prescriptions: Hydrocodone/Acetaminophen [[place] 5-325 Tablet] 1 each PO Q6HR #7 tablet Cyclobenzaprine HCl [Flexeril] 10 mg PO TID #10 tablet Ibuprofen [Motrin 600Mg] 600 mg PO Q6H #20 tablet Forms: Patient Portal Access, Return to Work/School Quality - Quality Measures Quality Measures: N/A - Blood Pressure Screening Does Patient Have Any of the Following: No Blood Pressure Classification: Pre-Hypertensive BP Reading Systolic Measurement: 123 Diastolic Measurement: 73 Screening for High Blood Pressure: < Pre-Hypertensive BP, F/U Documented > [ G8950] Pre-Hypertensive Follow-up Interventions: Follow-up with rescreen every year.
== END 2017-12-27 12:40 | disposition home or self-care (01) ==
LOC: ER 09:28
DX: S76.011A Strain of muscle, fascia and tendon of right hip, initial encounter (principal); M54.16 Radiculopathy, lumbar region; M70.61 Trochanteric bursitis, right hip; V89.2XXA Person injured in unspecified motor-vehicle accident, traffic, initial encounter
CPT/HCPCS: 99283; 96372; 99284; 72100; 73502; J1885

== ENCOUNTER 2018-01-29 20:41 | Emergency (ER) | payer MEDICAID ==
--- NOTE | 2018-01-29 20:59 | Emergency Department Record ---
History of Present Illness - General Chief complaint: Extremity Problem Stated complaint: LT HAND/WRIST PAIN Time Seen by Provider: 01/29/18 20:53 Source: Patient Mode of Arrival: Ambulatory Limitations: No limitations - History of Present Illness Initial comments: 32 yo female presents after injuring her left hand. She was cutting logs and the left hand was trapped between two logs. She has diffuse pain across the mid hand on the left. She is right handed. Intact skin without lacerations. Mild swelling. No numbness and tingling. No other injuries. MD Complaint: Extremity pain, Extremity swelling, Joint pain, Joint swelling Onset/Timin -: Hour(s) Location: Left, Hand -: Yes Arthralgia, Yes Myalgia Radiation: Proximal, Distal Severity scale (1-10): 7 Quality: Aching Consistency: Constant Improves with: Elevation, Immobilization Worsens with: Palpation, Weight bearing Associated Symptoms: Denies other symptoms - Related Data Allergies Allergy/AdvReac Type Severity Reaction Status Date / Time hydrocodone bitartrate Allergy Unknown pt states Verified 12/27/17 09:58 she passes out and vomits Travel Screening - Travel/Exposure Within Last 30 Days Have you traveled within the last 30 days?: No - Travel/Exposure Within Last Year Have you traveled outside the [place] in the last year?: No - Additonal Travel Details Have you been exposed to anyone with a communicable illness?: No - Travel Symptoms Symptom Screening: None Review of Systems Constitutional: Denies: Chills, Fever, Malaise, Weakness Eyes: Denies: Eye discharge, Eye pain, Photophobia, Vision change ENT: Denies: Congestion, Throat pain Respiratory: Denies: Cough, Dyspnea Cardiovascular: Denies: Chest pain, Syncope Endocrine: Denies: Fatigue Gastrointestinal: Denies: Abdominal pain, Diarrhea, Nausea, Vomiting Genitourinary: Denies: Dysuria, Urgency Musculoskeletal: Reports: As per HPI, Arthralgia Skin: Denies: Bruising, Change in color, Rash Neurological: Denies: Headache, Numbness, Tingling, Tremors, Weakness Psychiatric: Denies: Anxiety Hematological/Lymphatic: Denies: Blood Clots, Easy bleeding, Easy bruising, Swollen glands Past Medical History - SOCIAL HISTORY Smoking Status: Light tobacco smoker (<10/day) Alcohol Use: None Drug Use: None - RESPIRATORY Hx Respiratory Disorders: Yes Hx COPD: Yes Hx Pneumonia: Yes Hx Sleep Apnea: Yes Hx of CPAP: Yes (sometimes) - CARDIOVASCULAR Hx Cardio Disorders: No Comment:: n/a - NEURO Hx Neuro Disorders: Yes Hx Headaches: Yes Hx of Migraines: Yes - GI Hx GI Disorders: Yes Hx Abdominal Pain: Yes Hx Reflux: Yes Hx Nausea/Vomiting: Yes Hx Rectal Bleeding: Yes - Hx Genitourinary Disorders: No - ENDOCRINE Hx Endocrine Disorders: Yes Hx Diabetes: No Hx Thyroid Disease: Yes - MUSCULOSKELETAL Hx Musculoskeletal Disorders: Yes - PSYCH Hx Psych Problems: Yes Hx Anxiety: Yes Hx Behavior Problems: Yes Hx Depression: Yes - HEMATOLOGY/ONCOLOGY Hx Hematology/Oncology Disorders: No Family Medical History Any Significant Family History?: Yes Hx Cancer: Grandparents Hx Diabetes: Grandparents Hx Heart Disease: Grandparents *Heart Comment: heart failure Hx HTN: Father Hx Seizures: Grandparents Hx Stroke: Grandparents *Stroke Comment: grandmother Physical Exam - General General Appearance: Alert, Oriented x3, Cooperative, No acute distress Limitations: No limitations - Head Head exam: Atraumatic, Normal inspection - Eye Eye exam: Normal appearance. negative: Conjunctival injection, Scleral icterus - ENT ENT exam: Normal exam Ear exam: Normal external inspection Nasal Exam: Normal inspection - Neck Neck exam: Normal inspection - Cardiovascular Cardiovascular Exam: Regular rate, Normal rhythm, Normal heart sounds Peripheral Pulses: 2+: Radial (L) - Rectal Rectal exam: Deferred - exam: Deferred - Extremities Extremities exam: Normal inspection, Normal capillary refill, Tenderness. negative: Full ROM, Joint swelling Image of Hand: 1 - diffuse tenderness, intact skin, minimal to no swelling, sensation intact - Neurological Neurological exam: Alert, Normal gait, Oriented X3. negative: Altered, Motor sensory deficit - Psychiatric Psychiatric exam: Normal affect, Normal mood - Skin Skin exam: Dry, Intact, Normal color, Warm Course Vital Signs 01/29/18 20:44 Temperature 98.1 F Pulse Rate 83 Respiratory 20 Rate Blood Pressure 118/81 Pulse Ox 98 - Reevaluation(s) Reevaluation #1: 01/29/18 21:00 The patient declined pain medication XR ordered Mild findings on examination, NV intact, minimal swelling, with intact skin. 01/29/18 21:00 Disposition Disposition: Discharge Clinical Impression: Hand contusion Condition: (1) Good Instructions: Hand Sprain (ED) Additional Instructions: Ice to minimize swelling Use the splint for comfort Recheck the wrist if you still have pain in about one week Forms: Patient Portal Access Time of Disposition: 21:48 Quality - Quality Measures Quality Measures: N/A - Blood Pressure Screening Does Patient Have Any of the Following: No Blood Pressure Classification: Pre-Hypertensive BP Reading Systolic Measurement: 118 Diastolic Measurement: 81 Screening for High Blood Pressure: < Pre-Hypertensive BP, F/U Documented > [ G8950] Pre-Hypertensive Follow-up Interventions: Referral to alternative/primary care provider.
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
== END 2018-01-29 21:57 | disposition home or self-care (01) ==
LOC: ER 20:41
DX: S60.222A Contusion of left hand, initial encounter (principal); W20.8XXA Other cause of strike by thrown, projected or falling object, initial encounter; F17.210 Nicotine dependence, cigarettes, uncomplicated
CPT/HCPCS: 99283

== ENCOUNTER 2018-04-16 19:49 | Emergency (ER) | payer MEDICAID ==
--- NOTE | 2018-04-16 20:03 | Emergency Department Record ---
History of Present Illness - General Chief Complaint: Chest Pain Stated Complaint: CHEST PRESSURE,NAUSEA Time Seen by Provider: 04/16/18 19:53 Source: Patient Mode of Arrival: Ambulatory Limitations: No limitations - History of Present Illness Initial Comments: 33 yo female presents to ED for evaluation of chest pain symptoms that began 1- 2 hours ago, also report feeling "tired" for the past 48 hours. Patient denies fevers, chills, or productive cough symptoms, denies recent illness. Patient denies history of cardiac disease of DVT/PE, denies lower extremity edema or OCP use. Patient denies pain with deep inspiration. Patient denies health problems other than hypothyroidism. MD Complaint: Chest pain Onset/Timin -: Hour(s) Onset: During rest Pain Location: Left chest Severity: Moderate Severity scale (1-10): 7 Quality: Heaviness Consistency: Constant Improves With: Nothing Worsens With: Nothing Treatments Prior to Arrival: None - Related Data On Oral Contraceptives: No Allergies Allergy/AdvReac Type Severity Reaction Status Date / Time hydrocodone bitartrate Allergy Unknown pt states Unverified 02/16/18 18:27 she passes out and vomits Travel Screening - Travel/Exposure Within Last 30 Days Have you traveled within the last 30 days?: No Review of Systems Constitutional: Denies: Chills, Fever, Malaise, Night sweats Eyes: Denies: Eye discharge, Eye pain ENT: Denies: Congestion, Ear pain, Epistaxis Respiratory: Denies: Cough, Dyspnea Cardiovascular: Reports: Chest pain. Denies: Dyspnea on exertion Endocrine: Reports: Fatigue. Denies: Heat or cold intolerance Gastrointestinal: Denies: Abdominal pain Genitourinary: Denies: Incontinence, Retention Musculoskeletal: Denies: Arthralgia, Back pain Skin: Denies: Bruising, Change in color Neurological: Denies: Abnormal gait, Confusion, Headache, Seizure Psychiatric: Denies: Anxiety Hematological/Lymphatic: Denies: Anemia, Blood Clots Past Medical History - SOCIAL HISTORY Smoking Status: Light tobacco smoker (<10/day) - RESPIRATORY Hx Respiratory Disorders: Yes Hx COPD: Yes Hx Pneumonia: Yes Hx Sleep Apnea: Yes Hx of CPAP: Yes (sometimes) - CARDIOVASCULAR Hx Cardio Disorders: No Comment:: n/a - NEURO Hx Neuro Disorders: Yes Hx Headaches: Yes Hx of Migraines: Yes - GI Hx GI Disorders: Yes Hx Abdominal Pain: Yes Hx Reflux: Yes Hx Nausea/Vomiting: Yes Hx Rectal Bleeding: Yes - Hx Genitourinary Disorders: No - ENDOCRINE Hx Endocrine Disorders: Yes Hx Diabetes: No Hx Thyroid Disease: Yes - MUSCULOSKELETAL Hx Musculoskeletal Disorders: Yes - PSYCH Hx Psych Problems: Yes Hx Anxiety: Yes Hx Behavior Problems: Yes Hx Depression: Yes - HEMATOLOGY/ONCOLOGY Hx Hematology/Oncology Disorders: No Family Medical History Any Significant Family History?: Yes Hx Cancer: Grandparents Hx Diabetes: Grandparents Hx Heart Disease: Grandparents *Heart Comment: heart failure Hx HTN: Father Hx Seizures: Grandparents Hx Stroke: Grandparents *Stroke Comment: grandmother Physical Exam - General General Appearance: Alert, Oriented x3, Cooperative, No acute distress, Other ( Flat affect, resting comfortably) Limitations: No limitations - Head Head exam: Atraumatic, Normocephalic, Normal inspection Head exam detail: negative: Abrasion, Contusion, Lezama's sign, General tenderness, Hematoma, Laceration - Eye Eye exam: Normal appearance. negative: Conjunctival injection, Periorbital swelling, Periorbital tenderness, Scleral icterus - ENT Ear exam: negative: Auricular hematoma, Auricular trauma Nasal Exam: negative: Active bleeding, Discharge, Dried blood, Foreign body Mouth exam: negative: Drooling, Laceration, Muffled voice, Tongue elevation - Neck Neck exam: Normal inspection. negative: Meningismus, Tenderness - Respiratory Respiratory exam: Normal lung sounds bilaterally. negative: Rales, Respiratory distress, Rhonchi, Stridor - Cardiovascular Cardiovascular Exam: Regular rate, Normal rhythm, Normal heart sounds - GI/Abdominal GI/Abdominal exam: Soft. negative: Rebound, Rigid, Tenderness - Rectal Rectal exam: Deferred - exam: Deferred - Extremities Extremities exam: Normal inspection. negative: Calf tenderness, Pedal edema, Tenderness - Back Back exam: Denies: CVA tenderness (R), CVA tenderness (L) - Neurological Neurological exam: Alert, Normal gait, Oriented X3 - Psychiatric Psychiatric exam: Flat affect, Normal mood - Skin Skin exam: Normal color. negative: Abrasion Type of lesion: negative: abrasion Course Vital Signs 04/16/18 19:51 Temperature 98.1 F Pulse Rate 81 Respiratory 20 Rate Blood Pressure 120/89 Pulse Ox 98 - Reevaluation(s) Reevaluation #1: 04/16/18 20:03 EKG: NSR 76 Indeterminate axis due to low-voltage No acute ST-T wave changes No change from 07/09/16 Patient is also PERC negative on examination. Will initiate cardiac evaluation evaluation, patient's HEART score is 0 on examination. Reevaluation #2: 04/16/18 20:51 Labs reviewed and are grossly unremarkable except for TSH>100. Previous labs were reviewed, patient has been as high as 210/132 previously, most recent was down to 17. Patient reports that she is still taking her Thyroid medication as prescribed. CXR: No acute process, no change from previous. Reevaluation #3: 04/16/18 21:41 Patient was updated on all results thus far, reports headache and intermittent chest pain symptoms at this time. Toradol ordered for her discomfort. Reevaluation #4: 04/16/18 23:40 Repeat Troponin is negative for myocardial injury. Patient appears stable for discharge with close follow-up for further evaluation of her hypothyroidism. Medical Decision Making - Lab Data Result diagrams: 04/16/18 20:02 04/16/18 20:02 Disposition Disposition: Discharge Clinical Impression: Hypothyroid Chest pain Qualifiers: Chest pain type: unspecified Qualified Code(s): R07.9 - Chest pain, unspecified Disposition: Home, Self-Care Condition: (2) Stable Instructions: Chest Pain (ED), Hypothyroidism (ED) Additional Instructions: Return to ED if your symptoms worsen or if you have any concerns. Ibuprofen 600 mg as needed for your pain symptoms. Follow-up with your family doctor in 3-5 days as directed for further evaluation. Forms: Patient Portal Access Time of Disposition: 23:41 Quality - Quality Measures Quality Measures: N/A - Blood Pressure Screening Does Patient Have Any of the Following: No Blood Pressure Classification: Pre-Hypertensive BP Reading Systolic Measurement: 120 Diastolic Measurement: 89 Screening for High Blood Pressure: < Pre-Hypertensive BP, F/U Documented > [ G8950] Pre-Hypertensive Follow-up Interventions: Referral to alternative/primary care provider.
[2018-04-16 20:20] LABS: BASO % 0.8 % (0-6); EOS % 3.7 % (0-6); GRAN % 55.1 % (47-80); HEMATOCRIT 41.6 % (35.0-47.0); HEMOGLOBIN 13.7 gm/dl (11.6-16.0); LYMPH % 33.5 % (16-45); MEAN CELL VOLUME 95.2 fl (81-97); MEAN CORPUSCULAR HEMOGLOBIN 31.4 pg (27-33); MEAN CORPUSCULAR HGB CONC 32.9 g/dl (32-36); MEAN PLATELET VOLUME 9.6 fl (7.4-10.4); MONO % 6.9 % (0-9); PLATELET COUNT 289 K/uL (130-400); RED BLOOD COUNT 4.37 M/uL (3.80-5.40); RED CELL DISTRIBUTION WIDTH 14.2 % (11.5-14.5); WHITE BLOOD COUNT W/O DIFF 11.5 K/uL (4.2-12.2)
[2018-04-16 20:32] LABS: BLOOD UREA NITROGEN 10 mg/dL (6-20); CREATININE 0.9 mg/dL (0.5-0.9); EST GLOMERULAR FILTRATION RATE > 60 mL/min
[2018-04-16 20:33] LABS: TOTAL PROTEIN 7.3 g/dL (6.6-8.7)
[2018-04-16 20:35] LABS: GLUCOSE,RANDOM 93 mg/dL (74-109)
[2018-04-16 20:37] LABS: ALB/GLOB RATIO 1.6 (1.1-1.8); ALBUMIN 4.5 g/dL (4.0-5.0); ALT/SGPT 20 U/L (<33); AST/SGOT 22 U/L (10.0-35.0)
[2018-04-16 20:38] LABS: ALKALINE PHOSPHATASE 52 U/L (35-104)
[2018-04-16] MEDS ORDERED: KETOROLAC 30 MG/ML VIAL IM ONE (21:40)
--- NOTE | 2018-04-17 13:39 | RADIOLOGY REPORT ---
EXAM: CHEST, TWO VIEWS HISTORY: CHEST PAIN AND HEADACHE. TECHNIQUE: Upright PA and lateral views of the chest were obtained. Comparison: Two view chest radiographic examination dated 07/09/16. FINDINGS: The heart is not enlarged and the pulmonary vasculature is nondilated. The lungs and pleural spaces are clear. The osseous structures are intact. IMPRESSION: NO RADIOGRAPHIC EVIDENCE OF ACUTE CARDIOPULMONARY DISEASE. JOB NUMBER: [id number] MTDD
== END 2018-04-16 23:46 | disposition home or self-care (01) ==
LOC: ER 19:49
DX: E03.9 Hypothyroidism, unspecified (principal); R07.89 Other chest pain; R11.0 Nausea; R53.83 Other fatigue; R51 Headache; J44.9 Chronic obstructive pulmonary disease, unspecified; F17.210 Nicotine dependence, cigarettes, uncomplicated
CPT/HCPCS: 71046; 80053; 84443; 84484; 85025; 93005; 93010; 96372; 99284; J1885

== ENCOUNTER 2018-04-26 09:01 | Emergency (ER) | payer SELFPAY ==
--- NOTE | 2018-04-26 09:24 | Emergency Department Record ---
History of Present Illness - General Chief complaint: Flank Pain Stated complaint: KIDNEY STONE Time Seen by Provider: 04/26/18 09:11 Source: Patient Mode of Arrival: Ambulatory Limitations: No limitations - History of Present Illness Initial comments: The patient is here due to L flank pain for 8 hours. The pain is sharp and stabbing and worse with any movement or twisting. She denies any pain radiation down the legs or any AP, nausea, vomiting, or diarrhea. The patient states she has a hx of kidney stones similar to this but has not seen any hematuria. She also was here 5 months ago for similar complaints and had a neg CT. MD Complaint: Other Onset/Timin -: Hour(s) Patient : No - Related Data Previous Rx's Medication Instructions Recorded Cyclobenzaprine HCl [Flexeril] 10 mg PO TID PRN #12 tablet 04/26/18 Naproxen [Naprosyn] 250 mg PO BID #14 tablet 04/26/18 Allergies Allergy/AdvReac Type Severity Reaction Status Date / Time hydrocodone bitartrate Allergy Unknown pt states Verified 04/26/18 09:13 she passes out and vomits Travel Screening - Travel/Exposure Within Last 30 Days Have you traveled within the last 30 days?: No - Travel/Exposure Within Last Year Have you traveled outside the [place] in the last year?: No - Additonal Travel Details Have you been exposed to anyone with a communicable illness?: No Review of Systems Constitutional: Denies: Chills, Fever Eyes: Denies: Eye discharge ENT: Denies: Congestion Respiratory: Denies: Cough, Dyspnea Past Medical History - SOCIAL HISTORY Smoking Status: Current every day smoker Alcohol Use: None Drug Use: None - RESPIRATORY Hx Respiratory Disorders: Yes Hx COPD: Yes Hx Pneumonia: Yes Hx Sleep Apnea: Yes Hx of CPAP: Yes (sometimes) - CARDIOVASCULAR Hx Cardio Disorders: No Comment:: n/a - NEURO Hx Neuro Disorders: Yes Hx Headaches: Yes Hx of Migraines: Yes - GI Hx GI Disorders: Yes Hx Abdominal Pain: Yes Hx Reflux: Yes Hx Nausea/Vomiting: Yes Hx Rectal Bleeding: Yes - Hx Genitourinary Disorders: No - ENDOCRINE Hx Endocrine Disorders: Yes Hx Diabetes: No Hx Thyroid Disease: Yes - MUSCULOSKELETAL Hx Musculoskeletal Disorders: Yes - PSYCH Hx Psych Problems: Yes Hx Anxiety: Yes Hx Behavior Problems: Yes Hx Depression: Yes - HEMATOLOGY/ONCOLOGY Hx Hematology/Oncology Disorders: No Family Medical History Any Significant Family History?: No Hx Cancer: Grandparents Hx Diabetes: Grandparents Hx Heart Disease: Grandparents *Heart Comment: heart failure Hx HTN: Father Hx Seizures: Grandparents Hx Stroke: Grandparents *Stroke Comment: grandmother Physical Exam - General General Appearance: Alert, Oriented x3, Cooperative, No acute distress - Head Head exam: Atraumatic, Normocephalic, Normal inspection - Eye Eye exam: Normal appearance, PERRL - Neck Neck exam: Normal inspection, Full ROM. negative: Tenderness - Respiratory Respiratory exam: Normal lung sounds bilaterally. negative: Respiratory distress - Cardiovascular Cardiovascular Exam: Regular rate, Normal rhythm, Normal heart sounds - GI/Abdominal GI/Abdominal exam: Soft, Normal bowel sounds. negative: Tenderness - Extremities Extremities exam: Normal inspection, Full ROM, Normal capillary refill. negative: Tenderness Image of Full Body: 1 - Area of pain and tenderness. - Back Back exam: Reports: Normal inspection, Paraspinal tenderness (The L flank pain is 100% reproducible with palpation of the L upper lumbar paraspinal area.). Denies: Vertebral tenderness - Neurological Neurological exam: Alert, Normal gait. negative: Abnormal gait, Motor sensory deficit Course Vital Signs 04/26/18 09:06 Temperature 98.1 F Pulse Rate 77 Respiratory 16 Rate Blood Pressure 113/77 Pulse Ox 98 - Reevaluation(s) Reevaluation #1: The patient is doing well. I did discuss the neg test results with her and the need for F/U with her PCP. 04/26/18 10:09 Medical Decision Making - Data Complexity MDM Data: Labs Ordered and/or Reviewed, X-Ray Ordered and/or Reviewed - Lab Data Result diagrams: 04/26/18 09:30 04/26/18 09:30 - Radiology Data Radiology results: Report reviewed (CT: Neg for hydro or stone. Neg per Rad.) Disposition Disposition: Discharge Clinical Impression: Flank pain, acute Disposition: Home, Self-Care Condition: (2) Stable Instructions: Flank Pain (ED) Additional Instructions: Please take Naprosyn and Flexeril for pain. Please see your family doctor next week for recheck and return to the ER for any worsening symptoms. Prescriptions: Cyclobenzaprine HCl [Flexeril] 10 mg PO TID PRN #12 tablet PRN Reason: Pain Naproxen [Naprosyn] 250 mg PO BID #14 tablet Forms: Patient Portal Access Time of Disposition: 10:11 Quality - Quality Measures Quality Measures: N/A - Blood Pressure Screening View Details: Yes Does Patient Have Any of the Following: No Blood Pressure Classification: Normal BP Reading Systolic Measurement: 113 Diastolic Measurement: 77 Screening for High Blood Pressure: < Normal BP, F/U Not Required > [G8783]
[2018-04-26 09:33] LABS: BASO % 0.8 % (0-6); EOS % 2.8 % (0-6); GRAN % 62.2 % (47-80); HEMATOCRIT 41.5 % (35.0-47.0); LYMPH % 26.3 % (16-45); MEAN CELL VOLUME 93.7 fl (81-97); MEAN CORPUSCULAR HEMOGLOBIN 31.6 pg (27-33); MEAN CORPUSCULAR HGB CONC 33.7 g/dl (32-36); MEAN PLATELET VOLUME 9.7 fl (7.4-10.4); MONO % 7.9 % (0-9); PLATELET COUNT 244 K/uL (130-400); RED BLOOD COUNT 4.43 M/uL (3.80-5.40); RED CELL DISTRIBUTION WIDTH 14.3 % (11.5-14.5); URINE APPEARANCE CLEAR; URINE BILIRUBIN NEGATIVE (NEGATIVE); URINE BLOOD NEGATIVE (NEGATIVE); URINE COLOR YELLOW; URINE GLUCOSE (UA) NEGATIVE (NEGATIVE); URINE KETONE NEGATIVE (NEGATIVE); URINE LEUKOCYTE ESTERASE NEGATIVE (NEGATIVE); URINE NITRITE NEGATIVE (NEGATIVE); URINE PROTEIN NEGATIVE (NEGATIVE); URINE UROBILINOGEN 0.2 E.U./dL (0.20 - 1.00); WHITE BLOOD COUNT W/O DIFF 11.5 K/uL (4.2-12.2)
[2018-04-26 09:43] LABS: BLOOD UREA NITROGEN 7 mg/dL (6-20); CREATININE 0.9 mg/dL (0.5-0.9); EST GLOMERULAR FILTRATION RATE > 60 mL/min
[2018-04-26 09:46] LABS: GLUCOSE,RANDOM 82 mg/dL (74-109)
[2018-04-26] MEDS ORDERED: KETOROLAC 30 MG/ML VIAL IM ONE (10:05)
--- NOTE | 2018-04-27 13:37 | CT SCAN REPORT ---
EXAM: CT OF THE ABDOMEN AND PELVIS HISTORY: LEFT FLANK PAIN. TECHNIQUE: CT of the abdomen and pelvis was performed without oral or IV contrast. This limits evaluation of bowel and solid visceral organs. Comparison: 11/16/17 CT. FINDINGS: Limited evaluation of the lung bases is unremarkable. The osseous structures are grossly intact. Fatty infiltrative change to the liver. Status post cholecystectomy. Limited evaluation of the spleen, adrenal glands, pancreas, and kidneys is unremarkable. Negative for urinary tract calculus. No hydronephrosis. No gross evidence for bowel obstruction. Moderate stool in the colon. Normal appendix. No free air. The urinary bladder is not distended , limiting its evaluation. Trace of free fluid in the pelvis. This may be physiologic. IMPRESSION: 1. NEGATIVE FOR URINARY TRACT CALCULUS OR HYDRONEPHROSIS. 2. TRACE OF FREE FLUID IN THE PELVIS. THIS MAY BE PHYSIOLOGIC. MODERATE STOOL IN THE COLON. 3. FATTY INFILTRATIVE CHANGE TO THE LIVER. STATUS POST CHOLECYSTECTOMY. JOB NUMBER: [id number] [facility]
== END 2018-04-26 10:34 | disposition home or self-care (01) ==
LOC: ER 09:01
DX: M54.6 Pain in thoracic spine (principal); J44.9 Chronic obstructive pulmonary disease, unspecified; F17.210 Nicotine dependence, cigarettes, uncomplicated; Z87.442 Personal history of urinary calculi
CPT/HCPCS: 99283; 96372; 99284; 85025; 80048; 81003; 74176; J1885

== ENCOUNTER 2018-05-22 09:15 | Emergency (ER) | payer MEDICAID ==
[2018-05-22] MEDS ORDERED: KETOROLAC 30 MG/ML VIAL IM ONE (09:18)
--- NOTE | 2018-05-22 09:24 | Emergency Department Record ---
History of Present Illness - General Chief complaint: Lower Extremity Pain Stated complaint: HIP PAIN Time Seen by Provider: 05/22/18 09:18 Source: Patient Mode of Arrival: Ambulatory Limitations: No limitations - History of Present Illness Initial comments: 33 yo female presents with right hip pain. The onset was yesterday morning. She mis-stepped on a 7 inch step. She felt a pop and now she has a burning type pain in the right posterior hip. No other injury. MD Complaint: Joint pain -: Days(s) (1) Location: Right History of Same: Yes -: Yes Arthralgia, Yes Myalgia Radiation: Proximal Quality: Aching Consistency: Constant Improves with: Immobilization Worsens with: Palpation, Walking, Weight bearing Associated Symptoms: Arthralgias - Related Data Previous Rx's Medication Instructions Recorded Naproxen [Naprosyn] 500 mg PO Q12H #30 tab. 05/22/18 Allergies Allergy/AdvReac Type Severity Reaction Status Date / Time hydrocodone bitartrate Allergy Unknown pt states Verified 05/22/18 09:19 she passes out and vomits Review of Systems Constitutional: Denies: Chills, Fever, Malaise, Weakness Eyes: Denies: Eye discharge ENT: Denies: Congestion, Throat pain Respiratory: Denies: Cough Cardiovascular: Denies: Chest pain, Syncope Endocrine: Denies: Fatigue Gastrointestinal: Denies: Abdominal pain, Diarrhea, Nausea, Vomiting Genitourinary: Denies: Dysuria, Urgency Musculoskeletal: Reports: Arthralgia, Myalgia Skin: Denies: Bruising, Change in color, Rash Neurological: Denies: Abnormal gait, Headache, Numbness, Paresthesias, Tingling , Weakness Psychiatric: Denies: Anxiety Hematological/Lymphatic: Denies: Blood Clots, Easy bleeding, Easy bruising, Swollen glands Past Medical History - SOCIAL HISTORY Smoking Status: Current every day smoker Drug Use: None - RESPIRATORY Hx Respiratory Disorders: Yes Hx COPD: Yes Hx Pneumonia: Yes Hx Sleep Apnea: Yes Hx of CPAP: Yes (sometimes) - CARDIOVASCULAR Hx Cardio Disorders: No Comment:: n/a - NEURO Hx Neuro Disorders: Yes Hx Headaches: Yes Hx of Migraines: Yes - GI Hx GI Disorders: Yes Hx Abdominal Pain: Yes Hx Reflux: Yes Hx Nausea/Vomiting: Yes Hx Rectal Bleeding: Yes - Hx Genitourinary Disorders: No - ENDOCRINE Hx Endocrine Disorders: Yes Hx Diabetes: No Hx Thyroid Disease: Yes - MUSCULOSKELETAL Hx Musculoskeletal Disorders: Yes - PSYCH Hx Psych Problems: Yes Hx Anxiety: Yes Hx Behavior Problems: Yes Hx Depression: Yes - HEMATOLOGY/ONCOLOGY Hx Hematology/Oncology Disorders: No Family Medical History Hx Cancer: Grandparents Hx Diabetes: Grandparents Hx Heart Disease: Grandparents *Heart Comment: heart failure Hx HTN: Father Hx Seizures: Grandparents Hx Stroke: Grandparents *Stroke Comment: grandmother Physical Exam - General General Appearance: Alert, Oriented x3, Cooperative, No acute distress Limitations: No limitations - Head Head exam: Normal inspection - Eye Eye exam: Normal appearance. negative: Conjunctival injection, Scleral icterus - ENT ENT exam: Normal exam Ear exam: Normal external inspection Nasal Exam: Normal inspection Mouth exam: Normal external inspection - Neck Neck exam: Normal inspection - Rectal Rectal exam: Deferred - exam: Deferred - Extremities Extremities exam: Normal inspection, Normal capillary refill, Tenderness. negative: Calf tenderness, Full ROM, Joint swelling, Pedal edema Image of Full Body: 1 - tender to palpation, minimal pain with internal and external rotation, pain on hip flexion, intact sensation, no edema. - Back Back exam: Denies: CVA tenderness (R), CVA tenderness (L) - Neurological Neurological exam: Alert, Oriented X3 - Psychiatric Psychiatric exam: Normal affect, Normal mood - Skin Skin exam: Dry, Intact, Normal color, Warm Course - Reevaluation(s) Reevaluation #1: 05/22/18 09:50 The XR was reviewed No acute changes. No acute fracture or dislocation Off work today given she stands for her job. Disposition Disposition: Discharge Clinical Impression: Sprain of right hip Qualifiers: Encounter type: initial encounter Qualified Code(s): S73.101A - Unspecified sprain of right hip, initial encounter Disposition: Home, Self-Care Condition: (1) Good Instructions: Hip Sprain (ED) Additional Instructions: Rest and avoid prolonged standing Call your doctor for a recheck of the hip in the next week Prescriptions: Naproxen [Naprosyn] 500 mg PO Q12H #30 tab.dr Forms: Patient Portal Access Time of Disposition: 09:51 Quality - Quality Measures Quality Measures: N/A, Headache (All Ages) - Headache: Neuroimaging Quality Measure: Measure #419: Overuse of Neuroimaging ICD10 Codes Entered: Yes Neurological Exam: Patient had a normal neurological exam. [G9535] Headache: Use of Neuroimaging: < CTA, CT, MRA or MRI was NOT ordered > [G9534] - Blood Pressure Screening Does Patient Have Any of the Following: No Blood Pressure Classification: Normal BP Reading Systolic Measurement: 105 Diastolic Measurement: 75 Screening for High Blood Pressure: < Normal BP, F/U Not Required > [G8783]
--- NOTE | 2018-05-22 19:16 | RADIOLOGY REPORT ---
EXAM: HIP,UNILAT, 2-3 VIEW RIGHT HISTORY: PAIN. TECHNIQUE: Single AP view of the pelvis. AP and frogleg views of the right hip were performed. FINDINGS: No evidence of fracture or dislocation. No lytic or blastic lesion. IMPRESSION: NEGATIVE AP PELVIS RIGHT HIP EXAMINATION. JOB NUMBER: [id number] MTDD
== END 2018-05-22 10:01 | disposition home or self-care (01) ==
LOC: ER 09:15
DX: S73.101A Unspecified sprain of right hip, initial encounter (principal); X50.0XXA Overexertion from strenuous movement or load, initial encounter; J44.9 Chronic obstructive pulmonary disease, unspecified; F17.210 Nicotine dependence, cigarettes, uncomplicated
CPT/HCPCS: 96372; 99283; 99284; J1885

== ENCOUNTER 2018-06-05 03:20 | Observation (INO) | payer MEDICAID ==
--- NOTE | 2018-06-05 03:28 | Emergency Department Record ---
History of Present Illness - General Chief Complaint: Chest Pain Stated Complaint: CHEST PAIN Time Seen by Provider: 06/05/18 03:21 Source: Patient Mode of Arrival: Ambulatory Limitations: No limitations - History of Present Illness Initial Comments: 33 yo female presents to ED for evaluation of chest pain that woke her up from sleep 45 minutes prior to arrival. Patient denies previous heart disease or recent stress testing. Patient denies fevers, chills, or recent illness, and denies lower extremity DVT, OCP use, or lower extremity swelling/pain. Patient does report a history hypothyroidism and is a current smoker. MD Complaint: Chest pain Onset/Timin -: Minutes(s) Pain Location: Substernal Severity: Moderate Quality: Aching Consistency: Constant Improves With: Nothing Worsens With: Nothing Treatments Prior to Arrival: None - Related Data On Oral Contraceptives: No Allergies Allergy/AdvReac Type Severity Reaction Status Date / Time hydrocodone bitartrate Allergy Unknown pt states Verified 06/05/18 03:28 she passes out and vomits Review of Systems Constitutional: Denies: Chills, Fever, Malaise, Night sweats Eyes: Denies: Eye discharge, Eye pain ENT: Denies: Congestion, Ear pain, Epistaxis Respiratory: Denies: Cough, Dyspnea Cardiovascular: Reports: Chest pain. Denies: Dyspnea on exertion, Edema, Palpitations Endocrine: Denies: Fatigue, Heat or cold intolerance Gastrointestinal: Denies: Abdominal pain, Nausea, Vomiting Genitourinary: Denies: Incontinence, Retention Musculoskeletal: Denies: Arthralgia, Back pain, Gout, Joint swelling Skin: Denies: Bruising, Change in color Neurological: Denies: Abnormal gait, Confusion, Headache, Seizure Psychiatric: Denies: Anxiety Hematological/Lymphatic: Denies: Anemia, Blood Clots Past Medical History - SOCIAL HISTORY Smoking Status: Current every day smoker Drug Use: None - RESPIRATORY Hx Respiratory Disorders: Yes Hx COPD: Yes Hx Pneumonia: Yes Hx Sleep Apnea: Yes Hx of CPAP: Yes (sometimes) - CARDIOVASCULAR Hx Cardio Disorders: No Comment:: n/a - NEURO Hx Neuro Disorders: Yes Hx Headaches: Yes Hx of Migraines: Yes - GI Hx GI Disorders: Yes Hx Abdominal Pain: Yes Hx Reflux: Yes Hx Nausea/Vomiting: Yes Hx Rectal Bleeding: Yes - Hx Genitourinary Disorders: No - ENDOCRINE Hx Endocrine Disorders: Yes Hx Diabetes: No Hx Thyroid Disease: Yes - MUSCULOSKELETAL Hx Musculoskeletal Disorders: Yes - PSYCH Hx Psych Problems: Yes Hx Anxiety: Yes Hx Behavior Problems: Yes Hx Depression: Yes - HEMATOLOGY/ONCOLOGY Hx Hematology/Oncology Disorders: No Family Medical History Hx Cancer: Grandparents Hx Diabetes: Grandparents Hx Heart Disease: Grandparents *Heart Comment: heart failure Hx HTN: Father Hx Seizures: Grandparents Hx Stroke: Grandparents *Stroke Comment: grandmother Physical Exam - General General Appearance: Alert, Oriented x3, Cooperative, Mild distress, Other (Flat affect) Limitations: No limitations - Head Head exam: Atraumatic, Normocephalic, Normal inspection Head exam detail: negative: Abrasion, Contusion, Lezama's sign, General tenderness, Hematoma, Laceration - Eye Eye exam: Normal appearance. negative: Conjunctival injection, Periorbital swelling, Periorbital tenderness, Scleral icterus - ENT Ear exam: negative: Auricular hematoma, Auricular trauma Nasal Exam: negative: Active bleeding, Discharge, Dried blood, Foreign body Mouth exam: negative: Drooling, Laceration, Muffled voice, Tongue elevation - Neck Neck exam: Normal inspection. negative: Meningismus, Tenderness - Respiratory Respiratory exam: Normal lung sounds bilaterally. negative: Rales, Respiratory distress, Rhonchi, Stridor - Cardiovascular Cardiovascular Exam: Regular rate, Normal rhythm, Normal heart sounds - GI/Abdominal GI/Abdominal exam: Soft. negative: Rebound, Rigid, Tenderness - Rectal Rectal exam: Deferred - exam: Deferred - Extremities Extremities exam: Normal inspection. negative: Calf tenderness, Pedal edema, Tenderness - Back Back exam: Denies: CVA tenderness (R), CVA tenderness (L) - Neurological Neurological exam: Alert, Normal gait - Psychiatric Psychiatric exam: Flat affect - Skin Skin exam: Normal color. negative: Abrasion Type of lesion: negative: abrasion Course - Reevaluation(s) Reevaluation #1: 06/05/18 03:27 EKG: NSR 67 Normal axis, normal intervals No acute ST-T wave changes Reevaluation #2: 06/05/18 03:44 PERC clinical decision rule was applied, and the patient does not have any of the following: -Age > 50 years -Pulse > 100 -Oxygen Saturation < 94% -History of Hemoptysis -Unilateral leg swelling -History or PE/DVT -Recent surgery or Trauma -Oral contraceptive/Hormone use Reevaluation #3: 06/05/18 04:49 TSH resulted at 118, similar to previous (119 04/14) Will admit for further evaluation. Reevaluation #4: 06/05/18 06:47 Case was discussed with Miriam Torres, will accept admission at this time. Medical Decision Making - Lab Data Result diagrams: 06/05/18 03:30 06/05/18 03:30 Disposition Disposition: Admit Clinical Impression: Myxedema Chest pain Qualifiers: Chest pain type: unspecified Qualified Code(s): R07.9 - Chest pain, unspecified Disposition: Still a Patient at [facility] Decision to Admit: Admit from ER Decision to Admit Date: 06/05/18 Decision to Admit Time: 04:50 Condition: (2) Stable Time of Disposition: 04:50 Quality - Quality Measures Quality Measures: N/A - Blood Pressure Screening Does Patient Have Any of the Following: No Blood Pressure Classification: Pre-Hypertensive BP Reading Systolic Measurement: 129 Diastolic Measurement: 89 Screening for High Blood Pressure: < Pre-Hypertensive BP, F/U Documented > [ G8950] Pre-Hypertensive Follow-up Interventions: Referral to alternative/primary care provider.
[2018-06-05] MEDS ORDERED: ASPIRIN 81 MG CHEWABLE TABLET PO ONE (03:33)
[2018-06-05 03:37] LABS: BASO % 0.9 % (0-6); EOS % 4.3 % (0-6); GRAN % 49.6 % (47-80); HEMATOCRIT 40.1 % (35.0-47.0); HEMOGLOBIN 13.8 gm/dl (11.6-16.0); LYMPH % 38.4 % (16-45); MEAN CELL VOLUME 94.1 fl (81-97); MEAN CORPUSCULAR HEMOGLOBIN 32.4 pg (27-33); MEAN CORPUSCULAR HGB CONC 34.4 g/dl (32-36); MEAN PLATELET VOLUME 10.2 fl (7.4-10.4); MONO % 6.8 % (0-9); PLATELET COUNT 253 K/uL (130-400); RED BLOOD COUNT 4.26 M/uL (3.80-5.40); RED CELL DISTRIBUTION WIDTH 14.5 % (11.5-14.5); WHITE BLOOD COUNT W/O DIFF 9.5 K/uL (4.2-12.2)
[2018-06-05 03:48] LABS: BLOOD UREA NITROGEN 10 mg/dL (6-20); CREATININE 0.9 mg/dL (0.5-0.9); EST GLOMERULAR FILTRATION RATE > 60 mL/min
[2018-06-05 03:49] LABS: TOTAL PROTEIN 6.6 g/dL (6.6-8.7)
[2018-06-05 03:51] LABS: GLUCOSE,RANDOM 109 mg/dL (74-109)
[2018-06-05 03:53] LABS: ALT/SGPT 24 U/L (<33); AST/SGOT 29 U/L (10.0-35.0)
[2018-06-05 03:54] LABS: ALB/GLOB RATIO 1.6 (1.1-1.8); ALBUMIN 4.1 g/dL (4.0-5.0); ALKALINE PHOSPHATASE 51 U/L (35-104)
[2018-06-05] MEDS ORDERED: IBUPROFEN 400 MG TABLET PO ONE (04:54)
[2018-06-05] MEDS ORDERED: NITROGLYCERIN 0.4MG SL TABLET #25 BTL SL PRN (05:06)
[2018-06-05] MEDS ORDERED: LEVOTHYROXINE SODIUM 125 MCG TABLET PO SCH (07:00)
[2018-06-05] MEDS ORDERED: ASPIRIN 325 MG TAB ENTERIC-COATED PO SCH (10:00)
--- NOTE | 2018-06-05 11:50 | History & Physical ---
History of Present Illness - Date of Service Date of Service for History & Physical: 06/05/18 - History of Present Illness Admitting Diagnosis: Chest pain. Myxedema History of Present Illness: 33 year old female presents to ED for sudden onset of chest pain that woke her up around 2ma. Patient states the pain was localized to the left side of her chest and was sharp in nature. She reported associated nausea and shortness of breath. Patient had a similar episode of chest pain in March, but she feels that episode was due to anxiety. Patient denies any other symptoms of fever, chills , recent illness, DVT, or recent travel. Patient's only medical history is significant for hypothyroidism, currently uncontrolled. Patient has been taking Levothyroxine 125mcg for over one year, reports medication compliance, taking medication at the same time daily. Patient states she saw her PCP last week regarding her thyroid, and further testing has been ordered by him. States she was diagnosed with CHF in 2013 and followed by a medical biller/coder and placed on medication (Patient is unsure of what medication). Patient has not established with a medical biller/coder since moving to this area. ED Course: Vital signs WNL EKG: NSR 67, normal axis, normal intervals, no acute ST changes Labs: initial troponin <0.010, TSH 118 (119 on 04/14/18) Chest x-ray normal PCP: Regis ([facility]) 06/05/2018: Patient A&O x 4, resting comfortably in bed. Patient denies any further episodes of chest pain since admission. Placed on cardiac exercise physiologist, serial troponins pending. ECHO and stress test ordered due to repeated episodes of chest pain and history of CHF which is currently not being managed. Will not address TSH at this time , as patient is being closely followed by PCP regarding this and currently being worked up. If all cardiac imaging WNL, patient will be able to discharge home and follow-up with PCP . Travel Screening - Travel/Exposure Within Last 30 Days Have you traveled within the last 30 days?: No - Travel/Exposure Within Last Year Have you traveled outside the [place] in the last year?: No - Additonal Travel Details Have you been exposed to anyone with a communicable illness?: No - Travel Symptoms Symptom Screening: None Review of Systems Constitutional: Reports: Other (fatigue). Denies: Chills, Fever, Malaise, Night sweats Eyes: Denies: Eye discharge, Eye pain ENT: Denies: Congestion, Ear pain, Epistaxis Respiratory: Reports: Dyspnea. Denies: Cough Cardiovascular: Reports: Chest pain. Denies: Dyspnea on exertion, Edema, Palpitations Endocrine: Denies: Fatigue, Heat or cold intolerance Gastrointestinal: Denies: Abdominal pain, Nausea, Vomiting Genitourinary: Denies: Incontinence, Retention Musculoskeletal: Denies: Arthralgia, Back pain, Gout, Joint swelling Skin: Denies: Bruising, Change in color Neurological: Denies: Abnormal gait, Confusion, Headache, Seizure Psychiatric: Denies: Anxiety Hematological/Lymphatic: Denies: Anemia, Blood Clots Past Medical History - SOCIAL HISTORY Smoking Status: Current every day smoker Drug Use: None - RESPIRATORY Hx Respiratory Disorders: Yes Hx COPD: Yes Hx Pneumonia: Yes Hx Sleep Apnea: Yes Hx of CPAP: Yes (sometimes) - CARDIOVASCULAR Hx Cardio Disorders: No Comment:: n/a - NEURO Hx Neuro Disorders: Yes Hx Headaches: Yes Hx of Migraines: Yes - GI Hx GI Disorders: Yes Hx Abdominal Pain: Yes Hx Reflux: Yes Hx Nausea/Vomiting: Yes Hx Rectal Bleeding: Yes - Hx Genitourinary Disorders: No - ENDOCRINE Hx Endocrine Disorders: Yes Hx Diabetes: No Hx Thyroid Disease: Yes - MUSCULOSKELETAL Hx Musculoskeletal Disorders: Yes - PSYCH Hx Psych Problems: Yes Hx Anxiety: Yes Hx Behavior Problems: Yes Hx Depression: Yes - HEMATOLOGY/ONCOLOGY Hx Hematology/Oncology Disorders: No Family Medical History Hx Cancer: Grandparents Hx Diabetes: Grandparents Hx Heart Disease: Grandparents *Heart Comment: heart failure Hx HTN: Father Hx Seizures: Grandparents Hx Stroke: Grandparents *Stroke Comment: grandmother H&P Meds/Allergies - Allergies Allergies: Allergies Allergy/AdvReac Type Severity Reaction Status Date / Time hydrocodone bitartrate Allergy Unknown pt states Verified 06/05/18 03:28 she passes out and vomits - Active Medications Active Medications: Current Medications Aspirin (Ecotrin (Ec)) 325 mg PO DAILY YANIRA Levothyroxine Sodium (Synthroid) 125 mcg PO DAILYTHY YANIRA Last Admin: 06/05/18 06:20 Dose: 125 mcg Nitroglycerin (Nitrostat 0.4mg) 0.4 mg SL Q5MIN PRN PRN Reason: CHEST PAIN Physical Exam - Vital Signs Vital Signs: Vital Signs - Last 24 Hrs Temp Pulse Pulse Resp BP BP BP 06/05/18 05:00 97.8 F 78 16 117/77 06/05/18 04:55 64 20 104/77 06/05/18 04:25 67 20 108/77 06/05/18 03:22 97.4 F L 68 20 129/89 Pulse Ox 06/05/18 05:00 97 06/05/18 04:55 94 L 06/05/18 04:25 98 06/05/18 03:22 100 - General General Appearance: Alert, Oriented x3, Cooperative, No acute distress Limitations: No limitations - Head Head exam: Atraumatic, Normocephalic, Normal inspection Head exam detail: negative: Abrasion, Contusion, Lezama's sign, General tenderness, Hematoma, Laceration - Eye Eye exam: Normal appearance. negative: Conjunctival injection, Periorbital swelling, Periorbital tenderness, Scleral icterus - ENT ENT exam: Mucous membranes moist Ear exam: Normal external inspection. negative: Auricular hematoma, Auricular trauma Nasal Exam: Normal inspection. negative: Active bleeding, Discharge, Dried blood, Foreign body Mouth exam: Normal external inspection. negative: Drooling, Laceration, Muffled voice, Tongue elevation - Neck Neck exam: Normal inspection. negative: Meningismus, Tenderness - Respiratory Respiratory exam: Normal lung sounds bilaterally. negative: Rales, Respiratory distress, Rhonchi, Stridor - Cardiovascular Cardiovascular Exam: Regular rate, Normal rhythm, Normal heart sounds Peripheral Pulses: 2+: Radial (R), Radial (L), Dorsalis Pedis (R), Dorsalis Pedis (L) - GI/Abdominal GI/Abdominal exam: Soft. negative: Rebound, Rigid, Tenderness - Rectal Rectal exam: Deferred - exam: Deferred - Extremities Extremities exam: Normal inspection. negative: Calf tenderness, Pedal edema, Tenderness - Back Back exam: Denies: CVA tenderness (R), CVA tenderness (L) - Neurological Neurological exam: Alert, Normal gait, Oriented X3 - Psychiatric Psychiatric exam: Flat affect - Skin Skin exam: Normal color. negative: Abrasion Type of lesion: negative: abrasion Results - Labs Result Diagrams: 06/05/18 03:30 06/05/18 03:30 Labs Last 24 Hours: Laboratory Results - last 24 hr 06/05/18 06/05/18 06/05/18 03:30 03:30 03:30 WBC 9.5 RBC 4.26 Hgb 13.8 Hct 40.1 MCV 94.1 MCH 32.4 MCHC 34.4 RDW 14.5 Plt Count 253 MPV 10.2 Gran % 49.6 Lymphocytes % 38.4 Monocytes % 6.8 Eosinophils % 4.3 Basophils % 0.9 Sodium 141 Potassium 3.7 Chloride 106 Carbon Dioxide 20.0 L Anion Gap 15.0 BUN 10 Creatinine 0.9 Estimated GFR > 60 Random Glucose 109 Calcium 8.7 Total Bilirubin 0.30 AST 29 ALT 24 Alkaline Phosphatase 51 Troponin T < 0.010 Total Protein 6.6 Albumin 4.1 Globulin 2.5 Albumin/Globulin Ratio 1.6 TSH 118.50 H Free T4 0.207 L 06/05/18 03:35 WBC RBC Hgb Hct MCV MCH MCHC RDW Plt Count MPV Gran % Lymphocytes % Monocytes % Eosinophils % Basophils % Sodium Potassium Chloride Carbon Dioxide Anion Gap BUN Creatinine Estimated GFR Random Glucose Calcium Total Bilirubin AST ALT Alkaline Phosphatase Troponin T Total Protein Albumin Globulin Albumin/Globulin Ratio TSH Cancelled Free T4 VTE H&P Assessment - Risk for VTE Risk for VTE: Yes Risk Level: Moderate Risk Assessment Date: 06/05/18 Risk Assessment Time: 11:51 VTE Orders Placed or Will Be Placed: Yes Plan - Detailed Diagnosis and Plan (1) Chest pain Current Visit: Yes Status: Acute Qualifiers: Chest pain type: unspecified Qualified Code(s): R07.9 - Chest pain, unspecified Base Code: R07.9 - CHEST PAIN, UNSPECIFIED Comment: 06/05/18: Patient presented to ED after sudden onset chest pain that woke her up. Initial EKG unremarkable , troponin negative. History of CHF -Continuous cardiac exercise physiologist -Serial troponin -ECHO, stress test, cardiology consult -324mg ASA in ED (2) Hypothyroidism Current Visit: Yes Status: Acute Base Code: E03.9 - HYPOTHYROIDISM, UNSPECIFIED Comment: 06/05/18: TSH 118 today (119 04/14/18) -Patient currently on Levothyroxine 125mcg qd -Currently being followed and managed by PCP regarding this, last appointment was 06/02/18 (3) DVT prophylaxis Current Visit: Yes Status: Acute Base Code: [id number] - Comment: 06/05/18: Moderate risk due to hospitalization and decreased mobility -Lovenox 40mg SQ qd (4) Full code status Current Visit: Yes Status: Acute Base Code: Z78.9 - OTHER SPECIFIED HEALTH STATUS Comment: 06/05/18: Full code status
--- NOTE | 2018-06-05 15:47 | Discharge Summary ---
Providers Discharge Summary Date: 06/05/18 Date of admission: 06/05/18 05:05 Expected Date of Discharge: 06/05/18 Attending physician: RADHA KOTHARI Primary care physician: Dr. Pepper Consults: Consult Orders 06/05/18 10:33 Consult - Cardiology NOW Consulting Provider: [facility] Physician Instructions: Reason For Exam: chest pain, hx CHF Does pt have current chemical production technician?: Not Established Physical Exam - Vital Signs Vital Signs: Vital Signs - Last 24 Hrs Temp Pulse Pulse Resp BP BP BP 06/05/18 11:06 97.3 F L 84 18 113/84 06/05/18 09:00 84 18 06/05/18 05:00 97.8 F 78 16 117/77 06/05/18 04:55 64 20 104/77 06/05/18 04:25 67 20 108/77 06/05/18 03:22 97.4 F L 68 20 129/89 Pulse Ox 06/05/18 11:06 97 06/05/18 09:00 06/05/18 05:00 97 06/05/18 04:55 94 L 06/05/18 04:25 98 06/05/18 03:22 100 - General General Appearance: Alert, Oriented x3, Cooperative, No acute distress Limitations: No limitations - Head Head exam: Atraumatic, Normocephalic, Normal inspection Head exam detail: negative: Abrasion, Contusion, Lezama's sign, General tenderness, Hematoma, Laceration - Eye Eye exam: Normal appearance. negative: Conjunctival injection, Periorbital swelling, Periorbital tenderness, Scleral icterus - ENT ENT exam: Mucous membranes moist Ear exam: Normal external inspection. negative: Auricular hematoma, Auricular trauma Nasal Exam: Normal inspection. negative: Active bleeding, Discharge, Dried blood, Foreign body Mouth exam: Normal external inspection. negative: Drooling, Laceration, Muffled voice, Tongue elevation - Neck Neck exam: Normal inspection. negative: Meningismus, Tenderness - Respiratory Respiratory exam: Normal lung sounds bilaterally. negative: Rales, Respiratory distress, Rhonchi, Stridor - Cardiovascular Cardiovascular Exam: Regular rate, Normal heart sounds, Bradycardia Peripheral Pulses: 2+: Radial (R), Radial (L), Dorsalis Pedis (R), Dorsalis Pedis (L) - GI/Abdominal GI/Abdominal exam: Soft. negative: Rebound, Rigid, Tenderness - Rectal Rectal exam: Deferred - exam: Deferred - Extremities Extremities exam: Normal inspection. negative: Calf tenderness, Pedal edema, Tenderness - Back Back exam: Denies: CVA tenderness (R), CVA tenderness (L) - Neurological Neurological exam: Alert, Normal gait, Oriented X3 - Psychiatric Psychiatric exam: Flat affect - Skin Skin exam: Normal color. negative: Abrasion Type of lesion: negative: abrasion Hospitalization - Hospitalization Admission Diagnosis: Chest pain. Myxedema - Problem List/Discharge Diagnosis (1) Chest pain Current Visit: Yes Status: Acute Discharge Diagnosis: Chest pain type: unspecified Qualified Code(s): R07.9 - Chest pain, unspecified Base Code: R07.9 - CHEST PAIN, UNSPECIFIED Comment: 06/05/18: Patient presented to ED after sudden onset chest pain that woke her up. Initial EKG unremarkable , troponin negative. History of CHF -Continuous groundwater monitoring technician -Serial troponins, <0.010, <0.010 -ECHO: EF 60-65%, normal diastolic function, normal pulmonary pressures -stress test: Results pending -cardiology consult -324mg ASA in ED -1 episode of chest pain since admission, occurred during stress test (2) Hypothyroidism Current Visit: Yes Status: Acute Base Code: E03.9 - HYPOTHYROIDISM, UNSPECIFIED Comment: 06/05/18: TSH 118 today (119 04/14/18) -Patient currently on Levothyroxine 125mcg qd -Currently being followed and managed by PCP regarding this, last appointment was 06/02/18 (3) DVT prophylaxis Current Visit: Yes Status: Acute Base Code: [id number] - Comment: 06/05/18: Moderate risk due to hospitalization and decreased mobility -Lovenox 40mg SQ qd (4) Full code status Current Visit: Yes Status: Acute Base Code: Z78.9 - OTHER SPECIFIED HEALTH STATUS Comment: 06/05/18: Full code status - Hospitalization Course Disposition: Home, Self-Care Hospital Course: 33 year old female presents to ED for sudden onset of chest pain that woke her up around 2ma. Patient states the pain was localized to the left side of her chest and was sharp in nature. She reported associated nausea and shortness of breath. Patient had a similar episode of chest pain in March, but she feels that episode was due to anxiety. Patient denies any other symptoms of fever, chills , recent illness, DVT, or recent travel. Patient's only medical history is significant for hypothyroidism, currently uncontrolled. Patient has been taking Levothyroxine 125mcg for over one year, reports medication compliance, taking medication at the same time daily. Patient states she saw her PCP last week regarding her thyroid, and further testing has been ordered by him. States she was diagnosed with CHF in 2013 and followed by a chemical production technician and placed on medication (Patient is unsure of what medication). Patient has not established with a chemical production technician since moving to this area. ED Course: Vital signs WNL EKG: NSR 67, normal axis, normal intervals, no acute ST changes Labs: initial troponin <0.010, TSH 118 (119 on 04/14/18) Chest x-ray normal PCP: Regis ([facility]) 06/05/2018: Patient A&O x 4, resting comfortably in bed. Patient denies any further episodes of chest pain since admission. Placed on groundwater monitoring technician, serial troponins pending. ECHO and stress test ordered due to repeated episodes of chest pain and history of CHF which is currently not being managed. Will not address TSH at this time , as patient is being closely followed by PCP regarding this and currently being worked up. If all cardiac imaging WNL, patient will be able to discharge home and follow-up with PCP . Update: ECHO-EF 60-65%, normal diastolic function, normal pulmonary pressures Stress-Dr. Nuno to interpret Cardiology Consult-feels patient reporting history of atypical chest pain, patient unable to give detailed history of previous workups. Will follow-up with patient outpatient in 2-3 weeks. Patient reported 1 episode of chest pain since admission, occurring during stress test, resolved spontaneously. Serial troponins negative. Patient to discharge home, follow-up with cardiology outpatient. Patient to continue following with PCP re hypothyroidism. Procedures: Imaging and X-Rays 06/05/18 03:33 CHEST 2 VIEWS [RAD] Stat Cardiology Procedures 06/05/18 03:21 EKG NOW 06/05/18 05:06 Development Assistant .Continuous 06/05/18 06:55 Cardiolite MPI w/exercise stre NOW Echo W/CF & Cardiac Doppler NOW Abnormal Labs: Abnormal Lab Results 06/05/18 06/05/18 Range/Units 03:30 03:30 Carbon Dioxide 20.0 L (22-29) mmol/L TSH 118.50 H (0.270-4.20) uIU/mL Free T4 0.207 L (0.93-1.7) ng/dL Condition at Discharge: (2) Stable VTE Discharge VTE Reason For No Overlap Therapy: Not Indicated (will resume normal activity upon dc) Discharge Medications - Discharge Medications Home Medications: Ambulatory Orders Levothyroxine Sodium [Synthroid] 125 mcg PO DAILY 02/06/16 [Last Taken 06/04/18] Discharge Plan - Discharge Instructions Activity at Discharge: Resume Usual Activities As Tolerated Diet at Discharge: Regular Diet Additional Instructions: Follow-up with cardiology in their office in 2-3 weeks Continue following with your PCP for your hypothyroidism Quality Measures - Quality Measures Quality Measures: Documentation of Current Medications in Medical Record, Screening for High Blood Pressure and F/U Documented - Current Medications Quality Measure: Measure #130: Documentation of Current Medications Documentation of Current Medications: <Current Medications Documented/Reviewed> [G8427] - Blood Pressure Screening Quality Measure: Screening for High Blood Pressure and Follow-Up Documented Does Patient Have Any of the Following: No Blood Pressure Classification: Pre-Hypertensive BP Reading Systolic Measurement: 129 Diastolic Measurement: 89 Screening for High Blood Pressure: < Pre-Hypertensive BP, F/U Documented > [ G8950] Pre-Hypertensive Follow-up Interventions: Follow-up with rescreen every year. - Elder Abuse Suspicion Index EASI Reference Information: Christine WALDEN, Nica C, Kayce D, Cynthia Martin.Development and validation of a tool to assist physicians identification of elder abuse: The Elder Abuse Suspicion Index (EASI ). Journal of Elder Abuse and Neglect, 2008; 20 (3): 276-300.
--- NOTE | 2018-06-06 07:30 | RADIOLOGY REPORT ---
EXAM: CHEST, TWO VIEWS HISTORY: DIFFICULTY IN BREATHING. TECHNIQUE: Frontal and lateral views of the chest were performed. Comparison: 04/16/18. FINDINGS: The heart size is normal. The lung jarrell are clear. No infiltrate or pleural effusion. The osseous structures are normal. IMPRESSION: NEGATIVE CHEST EXAMINATION. JOB NUMBER: [id number] MTDD
[2018-06-06] MEDS ORDERED: ENOXAPARIN 40 MG/0.4 ML SYR SQ SCH (10:00)
== END 2018-06-05 17:15 | disposition home or self-care (01) ==
LOC: ER 03:20 → MEDSURG 05:05
PROVIDERS: ADMIT Internal Medicine; ATTEND Internal Medicine
DX: R07.9 Chest pain, unspecified (principal); E03.9 Hypothyroidism, unspecified; J44.9 Chronic obstructive pulmonary disease, unspecified; G47.30 Sleep apnea, unspecified; K21.9 Gastro-esophageal reflux disease without esophagitis; F17.210 Nicotine dependence, cigarettes, uncomplicated
CPT/HCPCS: 85025; 80053; 84439; 84443; 84484; 71046; 93017; 78452; 93005; 93306; 93010; G0378; A9500; J2785; 99220; 99285

== ENCOUNTER 2018-07-06 17:09 | Emergency (ER) | payer MEDICAID ==
--- NOTE | 2018-07-06 17:25 | Emergency Department Record ---
History of Present Illness - General Chief Complaint: Ankle/Foot Injury Stated Complaint: l ankle injury Time Seen by Provider: 07/06/18 17:25 Source: Patient Mode of Arrival: Wheelchair Limitations: No limitations - History of Present Illness Initial Comments: The patient is here due to L ankle pain. She tripped going down a few steps about a half hour ago and twisted her L ankle. Since she has not been able to walk on it. She denies any significant L knee pain. Complaint: Ankle injury Onset/Timin -: Minutes(s) Type of Injury: Blunt, Other Place: Home Severity scale (1-10): 7 Improves With: Nothing Worsens With: Weight bearing Context: Fall, Other Other Symptoms: Other Associated Symptoms: Unable to bear weight - Related Data Allergies Allergy/AdvReac Type Severity Reaction Status Date / Time hydrocodone bitartrate Allergy Unknown pt states Verified 07/06/18 17:24 she passes out and vomits Travel Screening - Travel/Exposure Within Last 30 Days Have you traveled within the last 30 days?: No - Travel/Exposure Within Last Year Have you traveled outside the [place] in the last year?: No - Additonal Travel Details Have you been exposed to anyone with a communicable illness?: No - Travel Symptoms Symptom Screening: None Review of Systems Constitutional: Denies: Chills, Fever Past Medical History - SOCIAL HISTORY Smoking Status: Current every day smoker Alcohol Use: None Drug Use: None - RESPIRATORY Hx Respiratory Disorders: Yes Hx COPD: Yes Hx Pneumonia: Yes Hx Sleep Apnea: Yes Hx of CPAP: Yes (sometimes) - CARDIOVASCULAR Hx Cardio Disorders: No Comment:: n/a - NEURO Hx Neuro Disorders: Yes Hx Headaches: Yes Hx of Migraines: Yes - GI Hx GI Disorders: Yes Hx Abdominal Pain: Yes Hx Reflux: Yes Hx Nausea/Vomiting: Yes Hx Rectal Bleeding: Yes - Hx Genitourinary Disorders: No - ENDOCRINE Hx Endocrine Disorders: Yes Hx Diabetes: No Hx Thyroid Disease: Yes - MUSCULOSKELETAL Hx Musculoskeletal Disorders: Yes - PSYCH Hx Psych Problems: Yes Hx Anxiety: Yes Hx Behavior Problems: Yes Hx Depression: Yes - HEMATOLOGY/ONCOLOGY Hx Hematology/Oncology Disorders: No Family Medical History Any Significant Family History?: No Hx Cancer: Grandparents Hx Diabetes: Grandparents Hx Heart Disease: Grandparents *Heart Comment: heart failure Hx HTN: Father Hx Seizures: Grandparents Hx Stroke: Grandparents *Stroke Comment: grandmother Physical Exam - General General Appearance: Alert, Oriented x3, Cooperative, No acute distress - Head Head exam: Atraumatic, Normocephalic - Eye Eye exam: Normal appearance, PERRL - Extremities Extremities exam: Normal inspection (There is no ankle swelling, erythema, or bruising.), Tenderness (There is mild L lateral malleolus tenderness.), Other ( The L foot is NVI with normal pulses.). negative: Calf tenderness, Full ROM, Joint swelling Course Vital Signs 07/06/18 17:15 Temperature 98.4 F Pulse Rate 82 Respiratory 16 Rate Blood Pressure 118/84 Pulse Ox 96 - Reevaluation(s) Reevaluation #1: I did discuss the neg xrays with the patient. On recheck the ankle still does appear normal with no swelling or bruising. I did instruct the patient to use the ankle brace for 3-5 days along with tylenol or motrin for pain. 07/06/18 18:19 Medical Decision Making - Data Complexity MDM Data: X-Ray Ordered and/or Reviewed - Radiology Data Radiology results: Report reviewed (L ankle: Neg per Rad.) Disposition Disposition: Discharge Clinical Impression: Mild ankle sprain Qualifiers: Encounter type: initial encounter Laterality: left Qualified Code(s): S93.402A - Sprain of unspecified ligament of left ankle, initial encounter Disposition: Home, Self-Care Condition: (2) Stable Instructions: Ankle Sprain (ED) Additional Instructions: Please ice and elevate the L ankle for 3 days and off work for 3 days. Take your home pain medicines as needed. Use the ankle brace for 3-5 days. Please see your family doctor if not better in 4-5 days. Return to the ER for any worsening symptoms or problems. Forms: Patient Portal Access Time of Disposition: 18:23 Quality - Quality Measures Quality Measures: N/A - Blood Pressure Screening View Details: Yes Does Patient Have Any of the Following: No Blood Pressure Classification: Pre-Hypertensive BP Reading Systolic Measurement: 118 Diastolic Measurement: 84 Screening for High Blood Pressure: < Pre-Hypertensive BP, F/U Documented > [ G8950] Pre-Hypertensive Follow-up Interventions: Referral to alternative/primary care provider.
[2018-07-06] MEDS: ACETAMINOPHEN 325 MG TAB PO ONE (18:31)
--- NOTE | 2018-07-09 20:48 | RADIOLOGY REPORT ---
EXAM: ANKLE LEFT 3 VIEWS HISTORY: PAIN WITH DIFFICULTY BEARING WEIGHT POST FALL. TECHNIQUE: Three views of the left ankle. COMPARISON: None. ENCOUNTER: Initial. FINDINGS: There is normal bone mineralization. No acute fracture, dislocation, or destructive bone lesion is seen. The articular relations are maintained. No suspicious focal soft tissue abnormality. IMPRESSION: NO ACUTE FRACTURE NOR DISLOCATION IDENTIFIED. JOB NUMBER: [id number] MTDD
== END 2018-07-06 19:12 | disposition home or self-care (01) ==
LOC: ER 17:09
DX: S93.402A Sprain of unspecified ligament of left ankle, initial encounter (principal); M25.562 Pain in left knee; J44.9 Chronic obstructive pulmonary disease, unspecified; F17.210 Nicotine dependence, cigarettes, uncomplicated; W10.9XXA Fall (on) (from) unspecified stairs and steps, initial encounter; Y92.009 Unspecified place in unspecified non-institutional (private) residence as the place of occurrence of the external cause
CPT/HCPCS: 99283

== ENCOUNTER 2018-09-01 02:36 | Emergency (ER) | payer MEDICAID ==
[2018-09-01 02:50] LABS: URINE APPEARANCE SL CLOUDY; URINE BILIRUBIN NEGATIVE (NEGATIVE); URINE BLOOD SMALL (NEGATIVE); URINE COLOR YELLOW; URINE GLUCOSE (UA) NEGATIVE (NEGATIVE); URINE KETONE NEGATIVE (NEGATIVE); URINE LEUKOCYTE ESTERASE MODERATE (NEGATIVE); URINE NITRITE NEGATIVE (NEGATIVE); URINE PROTEIN TRACE (NEGATIVE); URINE UROBILINOGEN 0.2 E.U./dL (0.20 - 1.00)
--- NOTE | 2018-09-01 02:53 | Emergency Department Record ---
History of Present Illness - General Chief complaint: Female Urogenital Problem Stated complaint: UTI Time Seen by Provider: 09/01/18 02:46 Source: Patient Mode of Arrival: Ambulatory Limitations: No limitations - History of Present Illness Initial comments: 33 yo female presents with dysuria and frequency that started yesterday. No fever. No vomiting, diarrhea, hematuria. No other abdominal pain. No other recent changes in her health. She is scheduled for ovarian surgery on Tuesday for an issue that has been ongoing 7 years. Complaint: Dysuria Onset/Timin -: Days(s) Location: Suprapubic Severity: Moderate Severity scale (1-10): 5 Quality: Burning Consistency: Intermittent Improves with: None Worsens with: Urination Associated Symptoms: Denies other symptoms - Related Data Previous Rx's Medication Instructions Recorded Cephalexin [Keflex] 500 mg PO QID #28 cap 09/01/18 Allergies Allergy/AdvReac Type Severity Reaction Status Date / Time hydrocodone bitartrate Allergy Unknown pt states Verified 07/06/18 17:24 she passes out and vomits Travel Screening - Travel/Exposure Within Last 30 Days Have you traveled within the last 30 days?: No - Travel Symptoms Symptom Screening: None Review of Systems Constitutional: Denies: Chills, Fever, Malaise, Weakness Eyes: Denies: Eye discharge ENT: Denies: Congestion, Throat pain Respiratory: Denies: Cough, Dyspnea Cardiovascular: Denies: Chest pain, Syncope Endocrine: Denies: Fatigue Gastrointestinal: Reports: Abdominal pain. Denies: Diarrhea, Nausea, Vomiting Genitourinary: Reports: Dysuria, Frequency, Urgency. Denies: Hematuria Musculoskeletal: Denies: Arthralgia, Back pain, Neck pain Skin: Denies: Bruising, Change in color, Rash Neurological: Denies: Headache, Numbness, Weakness Psychiatric: Denies: Anxiety Hematological/Lymphatic: Denies: Easy bleeding, Easy bruising Past Medical History - SOCIAL HISTORY Smoking Status: Current every day smoker - RESPIRATORY Hx Respiratory Disorders: Yes Hx COPD: Yes Hx Pneumonia: Yes Hx Sleep Apnea: Yes Hx of CPAP: Yes (sometimes) - CARDIOVASCULAR Hx Cardio Disorders: No Comment:: n/a - NEURO Hx Neuro Disorders: Yes Hx Headaches: Yes Hx of Migraines: Yes - GI Hx GI Disorders: Yes Hx Abdominal Pain: Yes Hx Reflux: Yes Hx Nausea/Vomiting: Yes Hx Rectal Bleeding: Yes - Hx Genitourinary Disorders: No Comment:: ovarian cyst-surgery scheduled for 08/2018 - ENDOCRINE Hx Endocrine Disorders: Yes Hx Diabetes: No Hx Thyroid Disease: Yes - MUSCULOSKELETAL Hx Musculoskeletal Disorders: Yes - PSYCH Hx Psych Problems: Yes Hx Anxiety: Yes Hx Behavior Problems: Yes Hx Depression: Yes - HEMATOLOGY/ONCOLOGY Hx Hematology/Oncology Disorders: No Family Medical History Any Significant Family History?: Yes Hx Cancer: Grandparents Hx Diabetes: Grandparents Hx Heart Disease: Grandparents *Heart Comment: heart failure Hx HTN: Father Hx Seizures: Grandparents Hx Stroke: Grandparents *Stroke Comment: grandmother Physical Exam - General General Appearance: Alert, Oriented x3, Cooperative, No acute distress Limitations: No limitations - Head Head exam: Atraumatic, Normal inspection - Eye Eye exam: Normal appearance. negative: Conjunctival injection, Scleral icterus - ENT ENT exam: Normal exam Ear exam: Normal external inspection Nasal Exam: Normal inspection Mouth exam: Normal external inspection - Neck Neck exam: Normal inspection - GI/Abdominal GI/Abdominal exam: Soft. negative: Distended, Guarding, Rebound, Rigid, Tenderness - Rectal Rectal exam: Deferred - exam: Deferred - Back Back exam: Denies: CVA tenderness (R), CVA tenderness (L) - Neurological Neurological exam: Alert, Normal gait, Oriented X3. negative: Altered - Psychiatric Psychiatric exam: Normal affect, Normal mood - Skin Skin exam: Dry, Intact, Normal color, Warm Course Vital Signs 09/01/18 02:43 Temperature 97.5 F L Pulse Rate 84 Respiratory 98 H Rate Blood Pressure 115/75 Pulse Ox 98 - Reevaluation(s) Reevaluation #1: 09/01/18 02:56 UCG is negative The UA is LE moderate with RBC's, + bacteria and WBC's. Consistent with UTI Antibiotics provided. Culture sent We discussed home care, follow up of the culture and reasons to return to the ED 09/01/18 02:57 The patient was informed she will need to call her [employer] surgeon today to inform her doctor she has a UTI prior to her Tuesday surgery. 09/01/18 03:05 Medical Decision Making - Lab Data Lab Results 09/01/18 Range/Units 02:51 Urine Color Yellow Urine Appearance Sl cloudy Urine pH 6.5 (5.0-8.0) Ur Specific [place] 1.025 (1.002-1.030) Urine Protein Trace H (NEGATIVE) Urine Glucose (UA) Negative (NEGATIVE) Urine Ketones Negative (NEGATIVE) Urine Blood Small H (NEGATIVE) Urine Nitrite Negative (NEGATIVE) Urine Bilirubin Negative (NEGATIVE) Urine Urobilinogen 0.2 (0.20 - 1.00) E.U./dL Ur Leukocyte Esterase Moderate H (NEGATIVE) Disposition Disposition: Discharge Clinical Impression: Urinary tract infection Qualifiers: Urinary tract infection type: site unspecified Hematuria presence: without hematuria Qualified Code(s): N39.0 - Urinary tract infection, site not specified Disposition: Home, Self-Care Condition: (1) Good Instructions: Urinary Tract Infection in Women (ED) Additional Instructions: Take the prescriptions provided today as directed. Call your family doctor. Call to schedule the next available appointment for a recheck. Return to ED if your symptoms worsen or if you have any new concerns. Review the final Emergency Record and test results with your doctor on follow up Inform your [employer]IN[employer] today about the UTI prior to your surgery next Tuesday Prescriptions: Cephalexin [Keflex] 500 mg PO QID #28 cap Forms: Patient Portal Access Time of Disposition: 02:57 Quality - Quality Measures Quality Measures: N/A - Blood Pressure Screening Does Patient Have Any of the Following: No Blood Pressure Classification: Normal BP Reading Systolic Measurement: 115 Diastolic Measurement: 75 Screening for High Blood Pressure: < Normal BP, F/U Not Required > [G8783]
[2018-09-01 02:55] LABS: URINE WBC 16 - 20 (0-2/hpf)
[2018-09-01 02:56] LABS: URINE BACTERIA 1+
[2018-09-01] MEDS ORDERED: CEPHALEXIN 500 MG CAPSULE PO STA (02:57)
== END 2018-09-01 03:08 | disposition home or self-care (01) ==
LOC: ER 02:36
DX: N39.0 Urinary tract infection, site not specified (principal); F17.210 Nicotine dependence, cigarettes, uncomplicated
CPT/HCPCS: 81001; 81025; 99282

== ENCOUNTER 2018-10-05 19:46 | Emergency (ER) | payer MEDICAID ==
--- NOTE | 2018-10-05 19:57 | Emergency Department Record ---
History of Present Illness - General Chief Complaint: Difficulty Breathing Stated Complaint: DR THINKS SHE MAY HAVE BC ON HER LUNG Time Seen by Provider: 10/05/18 19:48 Source: Patient Mode of Arrival: Ambulatory Limitations: No limitations - History of Present Illness Initial Comments: 33 yo female presents with cough for about three weeks. The cough hurts at times and it hurts to breath at times. She reports she had surgery about 4 weeks ago to remove her ovary. No calf pain or swelling. She denies prior DVT/ PE. She saw her PCP today and they did discuss PE as a possible cause of cough and pain. She reports she had blood tests today but she does not know the results. MD Complaint: Chest pain, Cough -: Week(s) (3) Severity: Moderate Quality: Aching Consistency: Constant Improves With: Nothing Worsens With: Coughing Known History Of: Other Context: Other (Recent surgery on ovary) Associated Symptoms: Chest pain, Cough Treatments Prior to Arrival: None - Related Data Previous Rx's Medication Instructions Recorded Azithromycin [Zithromax] 250 mg PO DAILY #4 tab 10/05/18 Prednisone [Prednisone 20Mg] 20 mg PO BID #10 tab 10/05/18 Allergies Allergy/AdvReac Type Severity Reaction Status Date / Time hydrocodone bitartrate Allergy Unknown pt states Verified 10/05/18 19:58 she passes out and vomits Review of Systems Constitutional: Denies: Chills, Fever, Malaise, Weakness Eyes: Denies: Eye discharge ENT: Denies: Congestion, Throat pain Respiratory: Reports: Cough, Dyspnea. Denies: Hemoptysis, Wheezes Cardiovascular: Reports: Chest pain. Denies: Edema (no leg or calf pain) Endocrine: Denies: Fatigue, Polydipsia Gastrointestinal: Denies: Abdominal pain, Diarrhea, Nausea, Vomiting Genitourinary: Denies: Dysuria, Urgency Musculoskeletal: Denies: Arthralgia, Back pain, Joint swelling, Myalgia Skin: Denies: Bruising, Change in color, Rash Neurological: Denies: Headache, Numbness, Weakness Psychiatric: Denies: Anxiety Hematological/Lymphatic: Denies: Blood Clots, Easy bleeding, Easy bruising Past Medical History - SOCIAL HISTORY Smoking Status: Current every day smoker - RESPIRATORY Hx Respiratory Disorders: Yes Hx COPD: Yes Hx Pneumonia: Yes Hx Sleep Apnea: Yes Hx of CPAP: Yes (sometimes) - CARDIOVASCULAR Hx Cardio Disorders: No Comment:: n/a - NEURO Hx Neuro Disorders: Yes Hx Headaches: Yes Hx of Migraines: Yes - GI Hx GI Disorders: Yes Hx Abdominal Pain: Yes Hx Reflux: Yes Hx Nausea/Vomiting: Yes Hx Rectal Bleeding: Yes - Hx Genitourinary Disorders: No Comment:: ovarian cyst-surgery scheduled for 08/2018 - ENDOCRINE Hx Endocrine Disorders: Yes Hx Diabetes: No Hx Thyroid Disease: Yes - MUSCULOSKELETAL Hx Musculoskeletal Disorders: Yes - PSYCH Hx Psych Problems: Yes Hx Anxiety: Yes Hx Behavior Problems: Yes Hx Depression: Yes - HEMATOLOGY/ONCOLOGY Hx Hematology/Oncology Disorders: No Family Medical History Hx Cancer: Grandparents Hx Diabetes: Grandparents Hx Heart Disease: Grandparents *Heart Comment: heart failure Hx HTN: Father Hx Seizures: Grandparents Hx Stroke: Grandparents *Stroke Comment: grandmother Physical Exam - General General Appearance: Alert, Oriented x3, Cooperative, No acute distress Limitations: No limitations - Head Head exam: Atraumatic, Normal inspection - Eye Eye exam: Normal appearance. negative: Conjunctival injection, Scleral icterus - ENT ENT exam: Normal exam, Mucous membranes moist, Normal orophraynx Ear exam: Normal external inspection Nasal Exam: Normal inspection Mouth exam: Normal external inspection - Neck Neck exam: Normal inspection - Respiratory Respiratory exam: Normal lung sounds bilaterally. negative: Decreased breath sounds, Prolonged expiratory, Respiratory distress, Rhonchi, Stridor, Wheezes - Cardiovascular Cardiovascular Exam: Regular rate, Normal rhythm, Normal heart sounds Peripheral Pulses: 2+: Radial (R), Radial (L) - GI/Abdominal GI/Abdominal exam: Soft. negative: Tenderness - Rectal Rectal exam: Deferred - exam: Deferred - Extremities Extremities exam: Normal inspection. negative: Calf tenderness, Pedal edema, Tenderness - Back Back exam: Denies: CVA tenderness (R), CVA tenderness (L) - Neurological Neurological exam: Alert, Oriented X3 - Psychiatric Psychiatric exam: Normal affect, Normal mood. negative: Agitated, Anxious - Skin Skin exam: Dry, Intact, Normal color, Warm Course - Reevaluation(s) Reevaluation #1: [facility] EMR reviewed 10/03/18 CXR was normal at [facility] 10/05/18 20:01 EKG 1956 Rate is 85 Intervals [address] no acute changes 10/05/18 20:04 No changes on EKG from 06/05/18 ekg 10/05/18 20:49 I was informed the IV infiltrated on the CTA. Warm compresses applied. The current local swelling is mild with mild pain. 10/05/18 21:40 The CTA of the chest was negative for PE or acute pulmonary process. 10/05/18 21:46 The arm was rechecked. She has mild swelling above the elbow. She has mild pain. She has full ROM without limitation. We discussed the option of OBV vs return in the AM for a recheck. The findings are mild and she is very comfortable with DC home, elevation, warm compresses with a planned returned for recheck. We discussed reasons to return sooner if worse or new concerns. Medical Decision Making - Lab Data Result diagrams: 10/05/18 19:51 10/05/18 19:51 Disposition Disposition: Discharge Clinical Impression: Cough, Contrast media adverse reaction Disposition: Home, Self-Care Condition: (1) Good Instructions: Chronic Cough (ED) Additional Instructions: Keep the arm elevated at home Apply warm compresses tonight every 3-4 hours Return in the morning for a recheck of the infiltration site Return sooner if any concerns of uncontrolled pain, increased swelling, numbness , or other questions Take the steroid and antibiotic as directed Call your doctor for a recheck again of your cough if not improved Prescriptions: Azithromycin [Zithromax] 250 mg PO DAILY #4 tab Prednisone [Prednisone 20Mg] 20 mg PO BID #10 tab Forms: Patient Portal Access Time of Disposition: 21:50 Quality - Quality Measures Quality Measures: N/A - Blood Pressure Screening Does Patient Have Any of the Following: No Blood Pressure Classification: Hypertensive Reading Systolic Measurement: 145 Diastolic Measurement: 94 Screening for High Blood Pressure: < Pre-Hypertensive BP, F/U Documented > [ G8950] Pre-Hypertensive Follow-up Interventions: Referral to alternative/primary care provider.
[2018-10-05 20:15] LABS: HEMATOCRIT 40.3 % (35.0-47.0); HEMOGLOBIN 13.5 gm/dl (11.6-16.0); MEAN CELL VOLUME 93.7 fl (81-97); MEAN CORPUSCULAR HEMOGLOBIN 31.4 pg (27-33); MEAN CORPUSCULAR HGB CONC 33.5 g/dl (32-36); MEAN PLATELET VOLUME 10.2 fl (7.4-10.4); PLATELET COUNT 248 K/uL (130-400); RED CELL DISTRIBUTION WIDTH 14.4 % (11.5-14.5); WHITE BLOOD COUNT W/O DIFF 8.2 K/uL (4.2-12.2)
[2018-10-05 20:23] LABS: BLOOD UREA NITROGEN 12 mg/dL (6-20); CREATININE 0.9 mg/dL (0.5-0.9); EST GLOMERULAR FILTRATION RATE > 60 mL/min
[2018-10-05 20:26] LABS: GLUCOSE,RANDOM 106 mg/dL (74-109)
[2018-10-05 20:41] LABS: ANISOCYTOSIS 1+; PLATELET ESTIMATE NORMAL (NORMAL)
[2018-10-05] MEDS ORDERED: IBUPROFEN 600 MG TABLET PO ONE (21:19)
[2018-10-05] MEDS ORDERED: METHYLPREDNISOLONE PF 125MG/VIAL IVP ONE (21:39)
[2018-10-05] MEDS ORDERED: AZITHROMYCIN 500 MG TABLET PO ONE (21:43)
--- NOTE | 2018-10-08 01:26 | CT ANGIOGRAM REPORT ---
EXAM: CT ANGIOGRAM CHEST CTA w contrast HISTORY: DIFFICULTY IN BREATHING. TECHNIQUE: CTA of the chest was performed after intravenous administration of 80 mL of Omnipaque-350 contrast material. Sagittal and coronal MIP images were performed an an independent workstation. FINDINGS: The mediastinal vasculature enhances normally. No mass or filling defect to suggest pulmonary embolism. The heart and pericardium appear normal. No mediastinal lymph nodes. There is mild prominence of the lymphoid tissue in the hilar regions. No infiltrate or pleural effusion. There is fatty infiltration of the liver. IMPRESSION: 1. NO CTA FINDINGS SUGGESTIVE OF PULMONARY EMBOLISM. 2. NO INFILTRATE OR PLEURAL EFFUSION. 3. SEVERE FATTY INFILTRATION OF THE LIVER. JOB NUMBER: [id number] [facility]
== END 2018-10-05 21:58 | disposition home or self-care (01) ==
LOC: ER 19:46
DX: T50.8X5A Adverse effect of diagnostic agents, initial encounter (principal); M79.621 Pain in right upper arm; R22.31 Localized swelling, mass and lump, right upper limb; R05 Cough; R06.00 Dyspnea, unspecified; R07.9 Chest pain, unspecified; R42 Dizziness and giddiness; J44.9 Chronic obstructive pulmonary disease, unspecified; F17.210 Nicotine dependence, cigarettes, uncomplicated; Y92.230 Patient room in hospital as the place of occurrence of the external cause
CPT/HCPCS: 99284 ×2; 96374; 80048; 86308; 85027; 71275; Q9967; 93005; 93010; J2930

== ENCOUNTER 2018-10-06 11:45 | Observation (INO) | payer MEDICAID ==
--- NOTE | 2018-10-06 12:36 | Emergency Department Record ---
History of Present Illness - General Chief Complaint: Recheck - Other Stated Complaint: RECHECK ARM Time Seen by Provider: 10/06/18 11:55 Source: Patient Mode of arrival: Ambulatory Limitations: No limitations - History of Present Illness Initial Comments: The patient is here for recheck of the L arm issue from last evening. She has an IV infiltrate after a PE study about 12 hours ago. Since discharge she states the L arm is more painful and swollen. There has been no redness or fever or arm or hand numbness or tingling. MD Complaint: Wound re-check Onset/Timin -: Hour(s) Initial Visit For: Other Returns Today for: Other Symptoms Since Prior Visit: No new symptoms Associated Symptoms: None - Related Data Previous Rx's Medication Instructions Recorded Azithromycin [Zithromax] 250 mg PO DAILY #4 tab 10/05/18 Prednisone [Prednisone 20Mg] 20 mg PO BID #10 tab 10/05/18 Allergies Allergy/AdvReac Type Severity Reaction Status Date / Time hydrocodone bitartrate Allergy Unknown pt states Verified 10/06/18 11:54 she passes out and vomits Travel Screening - Travel/Exposure Within Last 30 Days Have you traveled within the last 30 days?: No - Travel/Exposure Within Last Year Have you traveled outside the [place] in the last year?: No - Additonal Travel Details Have you been exposed to anyone with a communicable illness?: No - Travel Symptoms Symptom Screening: None Review of Systems Constitutional: Denies: Chills, Fever Eyes: Denies: Eye discharge ENT: Denies: Congestion Respiratory: Denies: Cough, Dyspnea Past Medical History - SOCIAL HISTORY Smoking Status: Current every day smoker Alcohol Use: None Drug Use: None - RESPIRATORY Hx Respiratory Disorders: Yes Hx COPD: Yes Hx Pneumonia: Yes Hx Sleep Apnea: Yes Hx of CPAP: Yes (sometimes) - CARDIOVASCULAR Hx Cardio Disorders: No Comment:: n/a - NEURO Hx Neuro Disorders: Yes Hx Headaches: Yes Hx of Migraines: Yes - GI Hx GI Disorders: Yes Hx Abdominal Pain: Yes Hx Reflux: Yes Hx Nausea/Vomiting: Yes Hx Rectal Bleeding: Yes - Hx Genitourinary Disorders: No Comment:: ovarian cyst-surgery scheduled for 08/2018 - ENDOCRINE Hx Endocrine Disorders: Yes Hx Diabetes: No Hx Thyroid Disease: Yes - MUSCULOSKELETAL Hx Musculoskeletal Disorders: Yes - PSYCH Hx Psych Problems: Yes Hx Anxiety: Yes Hx Behavior Problems: Yes Hx Depression: Yes - HEMATOLOGY/ONCOLOGY Hx Hematology/Oncology Disorders: No Family Medical History Any Significant Family History?: Yes Hx Cancer: Grandparents Hx Diabetes: Grandparents Hx Heart Disease: Grandparents *Heart Comment: heart failure Hx HTN: Father Hx Seizures: Grandparents Hx Stroke: Grandparents *Stroke Comment: grandmother Physical Exam - General General Appearance: Alert, Oriented x3, Cooperative, No acute distress - Head Head exam: Atraumatic, Normocephalic, Normal inspection - Eye Eye exam: Normal appearance, PERRL - Extremities Extremities exam: Tenderness (There is diffuse tenderness to palpation to the medial arm and forearm. ), Other (The L arm is NVI with normal sensation and pulses.). negative: Normal inspection (There is diffuse mod swelling to the L arm at the forearm, antecubital fossa and distal arm. ), Full ROM, Joint swelling - Neurological Neurological exam: Alert, Normal gait. negative: Abnormal gait, Motor sensory deficit Course Vital Signs 10/06/18 11:55 Temperature 98.8 F Pulse Rate 117 H Respiratory 18 Rate Blood Pressure 141/85 Pulse Ox 98 - Reevaluation(s) Reevaluation #1: I do not see any signs of any compartment syndrome at this time but the arm is more painful and swollen than last evening per the patient. Due to that fact I did discuss the need for elevation and further monitoring. I offered to admit the patient to the hospital as a short stay admission and she did agree. I then did discuss the case with Dr. Poole and he does accept the admission. 10/06/18 12:40 Disposition Disposition: Admit Clinical Impression: Arm pain, left Disposition: Still a Patient at [facility] Decision to Admit: Admit from ER Decision to Admit Date: 10/06/18 Decision to Admit Time: 12:43 Accepting Physician: Virgilio Time Discussed w/Accepting Physician: 12:44 Condition: (2) Stable Forms: Patient Portal Access Time of Disposition: 12:44 Quality - Quality Measures Quality Measures: N/A - Blood Pressure Screening View Details: Yes Does Patient Have Any of the Following: No Blood Pressure Classification: Pre-Hypertensive BP Reading Systolic Measurement: 141 Diastolic Measurement: 85 Screening for High Blood Pressure: < Pre-Hypertensive BP, F/U Documented > [ G8950] Pre-Hypertensive Follow-up Interventions: Referral to alternative/primary care provider.
[2018-10-06] MEDS ORDERED: KETOROLAC 30 MG/ML VIAL IVP ONE (12:37)
--- NOTE | 2018-10-06 14:31 | History & Physical ---
History of Present Illness - Date of Service Date of Service for History & Physical: 10/06/18 - History of Present Illness History of Present Illness: Ms. Kan is a 33 y/o female with presentation of left forearm pain and swelling since yesterday. The patient came in to ED yesterday with complaint of shortness of breath and was sent for a CT to rule out pulmonary embolism. The CT was negative for emboli but she did have irritation where her IV line was placed for contrast. She says that the line went into under her skin and not in her vein and she began to notice increasing pain and swelling over the past 24 hours. On presentation to the ED the patient's labs were not suggestive of infection, and she was hemodynamically stable. Vitals on admission: BP:136/90 HR:108 RR:18 T: 98.1 Sat: 98 RA Travel Screening - Travel/Exposure Within Last 30 Days Have you traveled within the last 30 days?: No - Travel/Exposure Within Last Year Have you traveled outside the [place] in the last year?: No - Additonal Travel Details Have you been exposed to anyone with a communicable illness?: No - Travel Symptoms Symptom Screening: None Review of Systems Constitutional: Denies: Chills, Fever Eyes: Denies: Eye discharge ENT: Denies: Congestion Respiratory: Denies: Cough, Dyspnea Past Medical History - SOCIAL HISTORY Smoking Status: Current every day smoker Alcohol Use: None Drug Use: None - RESPIRATORY Hx Respiratory Disorders: Yes Hx COPD: Yes Hx Pneumonia: Yes Hx Sleep Apnea: Yes Hx of CPAP: Yes (sometimes) - CARDIOVASCULAR Hx Cardio Disorders: No Comment:: n/a - NEURO Hx Neuro Disorders: Yes Hx Headaches: Yes Hx of Migraines: Yes - GI Hx GI Disorders: Yes Hx Abdominal Pain: Yes Hx Reflux: Yes Hx Nausea/Vomiting: Yes Hx Rectal Bleeding: Yes - Hx Genitourinary Disorders: No Comment:: ovarian cyst-surgery scheduled for 08/2018 - ENDOCRINE Hx Endocrine Disorders: Yes Hx Diabetes: No Hx Thyroid Disease: Yes - MUSCULOSKELETAL Hx Musculoskeletal Disorders: Yes - PSYCH Hx Psych Problems: Yes Hx Anxiety: Yes Hx Behavior Problems: Yes Hx Depression: Yes - HEMATOLOGY/ONCOLOGY Hx Hematology/Oncology Disorders: No Family Medical History Any Significant Family History?: Yes Hx Cancer: Grandparents Hx Diabetes: Grandparents Hx Heart Disease: Grandparents *Heart Comment: heart failure Hx HTN: Father Hx Seizures: Grandparents Hx Stroke: Grandparents *Stroke Comment: grandmother H&P Meds/Allergies - Allergies Allergies: Allergies Allergy/AdvReac Type Severity Reaction Status Date / Time hydrocodone bitartrate Allergy Unknown pt states Verified 10/06/18 11:54 she passes out and vomits - Home Medications Previous Rx's Medication Instructions Recorded Azithromycin [Zithromax] 250 mg PO DAILY #4 tab 10/05/18 Prednisone [Prednisone 20Mg] 20 mg PO BID #10 tab 10/05/18 Physical Exam - Vital Signs Vital Signs: Vital Signs - Last 24 Hrs Temp Pulse Resp BP Pulse Ox 10/06/18 11:55 98.8 F 117 H 18 141/85 98 - General General Appearance: Alert, Oriented x3, Cooperative, No acute distress Limitations: No limitations - Head Head exam: Atraumatic, Normocephalic, Normal inspection - Eye Eye exam: Normal appearance, PERRL - Extremities Extremities exam: Tenderness (There is diffuse tenderness to palpation to the medial arm and forearm. ), Other (The L arm is NVI with normal sensation and pulses.). negative: Normal inspection (There is diffuse mod swelling to the L arm at the forearm, antecubital fossa and distal arm. ), Full ROM, Joint swelling - Neurological Neurological exam: Alert, Normal gait. negative: Abnormal gait, Motor sensory deficit VTE H&P Assessment - Risk for VTE Risk for VTE: Yes Risk Level: Low Risk Assessment Date: 10/06/18 Risk Assessment Time: 18:24 VTE Orders Placed or Will Be Placed: No VTE Reason for No Prophylaxis: Not Indicated Plan - Detailed Diagnosis and Plan (1) Arm pain, left Current Visit: Yes Status: Acute Base Code: M79.602 - PAIN IN LEFT ARM Comment: 10/06/18: - left arm extravasation 2/2 IV line placement. - Tramadol 50mg PO Q6H PRN, elevation, warm compresses. (2) URTI (acute upper respiratory infection) Current Visit: Yes Status: Acute Base Code: J06.9 - ACUTE UPPER RESPIRATORY INFECTION, UNSPECIFIED Comment: 10/06/18: - resume prednisone 20mg daily and Zitrhromax 500mg daily. (3) Full code status Current Visit: No Status: Acute Base Code: Z78.9 - OTHER SPECIFIED HEALTH STATUS Comment: 10/06/18: - Full code status (4) DVT prophylaxis Current Visit: No Status: Acute Base Code: [id number] - Comment: 10/06/18: - ambulation ad karli
[2018-10-06] MEDS ORDERED: ACETAMINOPHEN 325 MG TAB PO PRN (14:48)
[2018-10-06] MEDS ORDERED: KETOROLAC 30 MG/ML VIAL IVP PRN (14:48)
[2018-10-06] MEDS: TRAMADOL HCL 50 MG TABLET PO PRN ×2 (15:11→21:29)
[2018-10-06] MEDS: PREDNISONE 20 MG TAB PO SCH (17:41)
[2018-10-07] MEDS: TRAMADOL HCL 50 MG TABLET PO PRN (06:25)
[2018-10-07] MEDS ORDERED: LEVOTHYROXINE SODIUM 125 MCG TABLET PO SCH (07:00)
[2018-10-07] MEDS: PREDNISONE 20 MG TAB PO SCH (09:41)
--- NOTE | 2018-10-07 10:10 | Discharge Summary ---
Providers Discharge Summary Date: 10/07/18 Date of admission: 10/06/18 14:24 Attending physician: RADHA KOTHARI Physical Exam - Vital Signs Vital Signs: Vital Signs - Last 24 Hrs Temp Pulse Pulse Resp BP BP Pulse Ox 10/07/18 08:00 97.9 F 86 16 112/62 97 10/06/18 21:14 98.0 F 80 17 114/61 93 L 10/06/18 15:55 86 18 10/06/18 15:00 98.1 F 86 18 133/78 96 10/06/18 14:42 108 H 18 136/80 98 10/06/18 11:55 98.8 F 117 H 18 141/85 98 - General General Appearance: Alert, Oriented x3, Cooperative, No acute distress Limitations: No limitations - Head Head exam: Atraumatic, Normocephalic, Normal inspection - Eye Eye exam: Normal appearance, PERRL - Cardiovascular Peripheral Pulses: 3+: Radial (R), Radial (L), Dorsalis Pedis (R), Dorsalis Pedis (L) - Extremities Extremities exam: Tenderness (There is diffuse tenderness to palpation to the medial arm and forearm. ), Other (The L arm is NVI with normal sensation and pulses.). negative: Normal inspection (There is diffuse mod swelling to the L arm at the forearm, antecubital fossa and distal arm. ), Full ROM, Joint swelling - Neurological Neurological exam: Alert, Normal gait. negative: Abnormal gait, Motor sensory deficit Hospitalization - Hospitalization Admission Diagnosis: 1. Arm Pain S/P IV Infiltration. - Problem List/Discharge Diagnosis (1) Arm pain, left Current Visit: Yes Status: Acute Base Code: M79.602 - PAIN IN LEFT ARM Comment: 10/07/18: - left arm extravasation 2/2 IV line placement. - tramadol 50mg PO Q6H PRN, elevation, warm compresses. - symptoms imporved overnight. (2) URTI (acute upper respiratory infection) Current Visit: Yes Status: Acute Base Code: J06.9 - ACUTE UPPER RESPIRATORY INFECTION, UNSPECIFIED Comment: 10/07/18: - resume prednisone 20mg daily and Zitrhromax 500mg daily. (3) Full code status Current Visit: No Status: Acute Base Code: Z78.9 - OTHER SPECIFIED HEALTH STATUS Comment: 10/07/18: - Full code status (4) DVT prophylaxis Current Visit: No Status: Acute Base Code: [id number] - Comment: 10/07/18: - ambulation ad karli - Hospitalization Course Hospital Course: Ms. Kan is a 33 y/o female with presentation of left forearm pain and swelling since yesterday. The patient came in to ED yesterday with complaint of shortness of breath and was sent for a CT to rule out pulmonary embolism. The CT was negative for emboli but she did have irritation where her IV line was placed for contrast. She says that the line went into under her skin and not in her vein and she began to notice increasing pain and swelling over the past 24 hours. On presentation to the ED the patient's labs were not suggestive of infection, and she was hemodynamically stable. Vitals on admission: BP:136/90 HR:108 RR:18 T: 98.1 Sat: 98 RA PCP: Dr. Witt 10/07/18: The patient is doing well this morning with no new complaints. On examination she is able to flex, extended, supinate and pronate with minimal pain. She denies any warmth, fevers or chills. Condition at Discharge: (2) Stable Discharge Medications - Discharge Medications Prescriptions: Tramadol HCl [Ultram] 50 mg PO Q6H PRN #7 tablet PRN Reason: Pain - Mild To Moderate (1-7) Home Medications: Ambulatory Orders Levothyroxine Sodium [Synthroid] 200 mcg PO DAILY 02/06/16 [Last Taken 10/06/18] Azithromycin [Zithromax] 250 mg PO DAILY #4 tab 10/05/18 [Last Taken 10/06/18] Prednisone [Prednisone 20Mg] 20 mg PO BID #10 tab 10/05/18 [Last Taken 10/06/18] Tramadol HCl [Ultram] 50 mg PO Q6H PRN #7 tablet 10/07/18 [Last Taken Unknown] Discharge Plan - Discharge Instructions Activity at Discharge: Resume Usual Activities As Tolerated Additional Instructions: Continue using the Tramadol 50mg every 6 hours for your pain. For the swelling be sure to ice the area and use warm compresses. Follow up with your primary care doctor within 5-7 days for any other concerns. Quality Measures - Quality Measures Quality Measures: Documentation of Current Medications in Medical Record, Screening for High Blood Pressure and F/U Documented - Current Medications Quality Measure: Measure #130: Documentation of Current Medications Documentation of Current Medications: <Current Medications Documented/Reviewed> [G8427] - Blood Pressure Screening Quality Measure: Screening for High Blood Pressure and Follow-Up Documented Does Patient Have Any of the Following: No Blood Pressure Classification: Pre-Hypertensive BP Reading Systolic Measurement: 136 Diastolic Measurement: 80 Screening for High Blood Pressure: < Pre-Hypertensive BP, F/U Documented > [ G8950] Pre-Hypertensive Follow-up Interventions: Lifestyle modifications. Lifestyle Modification: Dietary Approaches to Stop Hypertension (DASH) Eating Plan - Elder Abuse Suspicion Index EASI Reference Information: Christine WALDEN, Nica C, Kayce D, Cynthia Martin.Development and validation of a tool to assist physicians identification of elder abuse: The Elder Abuse Suspicion Index (EASI ). Journal of Elder Abuse and Neglect, 2008; 20 (3): 276-300.
== END 2018-10-07 11:17 | disposition home or self-care (01) ==
LOC: ER 11:45 → MEDSURG 14:24
PROVIDERS: ADMIT Internal Medicine; ATTEND Internal Medicine
DX: T80.818A Extravasation of other vesicant agent, initial encounter (principal); J06.9 Acute upper respiratory infection, unspecified; J44.9 Chronic obstructive pulmonary disease, unspecified; E03.9 Hypothyroidism, unspecified; F41.8 Other specified anxiety disorders; F17.210 Nicotine dependence, cigarettes, uncomplicated; G47.30 Sleep apnea, unspecified
CPT/HCPCS: 99285 ×2; 96374; 90686; G0378 ×2; J1885; J7512 ×2; 99217; 99220

== ENCOUNTER 2018-11-09 19:50 | Emergency (ER) | payer MEDICAID ==
[2018-11-09] MEDS ORDERED: DIAZEPAM 5 MG TABLET PO ONE (20:01)
--- NOTE | 2018-11-09 20:02 | Emergency Department Record ---
History of Present Illness - General Chief Complaint: Neck Injury/Pain Stated Complaint: STIFF NECK AND PAIN Time Seen by Provider: 11/09/18 19:51 Source: Patient Mode of Arrival: Ambulatory Limitations: No limitations - History of Present Illness Initial Comments: 33 yo female presents to ED for [id number] of right sided neck pain that began 2 hours ago after wrestling with her significant other. Patient reports pain with [id number] motion of the neck, denies pain when in neutral position. Patient denies numbness, tingling or extremity weakness symptoms. Patient also reports taking Tramadol 2 hours ago for her pain symptoms. Patient reports cervical fracture 19 years ago with similar pain. MD Complaint: Neck injury, Neck pain Onset/Timin -: Hour(s) Place: Home Severity: Moderate Quality: Sharp, Stabbing Consistency: Intermittent Improves With: Remaining still Worsens With: Movement of neck Context: Other Associated Symptoms: None Treatments Prior to Arrival: Prescription pain med - Related Data Previous Rx's Medication Instructions Recorded Tramadol HCl [Ultram] 50 mg PO Q6H PRN #7 tablet 10/07/18 Ibuprofen [Motrin 600Mg] 600 mg PO Q6H PRN #30 tablet 11/09/18 Allergies Allergy/AdvReac Type Severity Reaction Status Date / Time hydrocodone bitartrate Allergy Unknown pt states Verified 10/06/18 11:54 she passes out and vomits Review of Systems Constitutional: Denies: Chills, Fever, Malaise, Night sweats Eyes: Denies: Eye discharge, Eye pain ENT: Denies: Congestion, Ear pain, Epistaxis Respiratory: Denies: Cough, Dyspnea Cardiovascular: Denies: Chest pain, Dyspnea on exertion Endocrine: Denies: Fatigue, Heat or cold intolerance Gastrointestinal: Denies: Constipation, Nausea, Vomiting Genitourinary: Denies: Incontinence, Retention Musculoskeletal: Reports: Neck pain. Denies: Arthralgia, Back pain Skin: Denies: Bruising, Change in color Neurological: Denies: Abnormal gait, Confusion, Headache, Seizure Psychiatric: Denies: Anxiety Hematological/Lymphatic: Denies: Anemia, Blood Clots Past Medical History - SOCIAL HISTORY Smoking Status: Current every day smoker Drug Use: None - RESPIRATORY Hx Respiratory Disorders: Yes Hx COPD: Yes Hx Pneumonia: Yes Hx Sleep Apnea: Yes Hx of CPAP: Yes (sometimes) - CARDIOVASCULAR Hx Cardio Disorders: No Comment:: n/a - NEURO Hx Neuro Disorders: Yes Hx Headaches: Yes Hx of Migraines: Yes - GI Hx GI Disorders: Yes Hx Abdominal Pain: Yes Hx Reflux: Yes Hx Nausea/Vomiting: Yes Hx Rectal Bleeding: Yes - Hx Genitourinary Disorders: No Comment:: ovarian cyst-surgery scheduled for 08/2018 - ENDOCRINE Hx Endocrine Disorders: Yes Hx Diabetes: No Hx Thyroid Disease: Yes - MUSCULOSKELETAL Hx Musculoskeletal Disorders: Yes - PSYCH Hx Psych Problems: Yes Hx Anxiety: Yes Hx Behavior Problems: Yes Hx Depression: Yes - HEMATOLOGY/ONCOLOGY Hx Hematology/Oncology Disorders: No Family Medical History Hx Cancer: Grandparents Hx Diabetes: Grandparents Hx Heart Disease: Grandparents *Heart Comment: heart failure Hx HTN: Father Hx Seizures: Grandparents Hx Stroke: Grandparents *Stroke Comment: grandmother Physical Exam - General General Appearance: Alert, Oriented x3, Cooperative Limitations: No limitations - Head Head exam: Atraumatic, Normocephalic, Normal inspection Head exam detail: negative: Abrasion, Contusion, Lezama's sign, General tenderness, Hematoma, Laceration - Eye Eye exam: Normal appearance. negative: Conjunctival injection, Periorbital swelling, Periorbital tenderness, Scleral icterus - ENT Ear exam: negative: Auricular hematoma, Auricular trauma Nasal Exam: negative: Active bleeding, Discharge, Dried blood, Foreign body Mouth exam: negative: Drooling, Laceration, Muffled voice, Tongue elevation - Neck Neck exam: Tenderness (TTP right paracervical muscles). negative: Meningismus - Respiratory Respiratory exam: Normal lung sounds bilaterally. negative: Rales, Respiratory distress, Rhonchi, Stridor - Cardiovascular Cardiovascular Exam: Regular rate, Normal rhythm, Normal heart sounds - GI/Abdominal GI/Abdominal exam: Soft. negative: Rebound, Rigid, Tenderness - Rectal Rectal exam: Deferred - exam: Deferred - Extremities Extremities exam: Normal inspection. negative: Pedal edema, Tenderness - Back Back exam: Denies: CVA tenderness (R), CVA tenderness (L) - Neurological Neurological exam: Alert, Normal gait, Oriented X3 - Psychiatric Psychiatric exam: Normal affect, Normal mood - Skin Skin exam: Normal color. negative: Abrasion Type of lesion: negative: abrasion Course - Reevaluation(s) Reevaluation #1: 11/09/18 21:12 CT Cervical Spine: No osseous fracture or dislocation Patient was updated on her radiology result, reports no improvement with Valium Will prescribe Motrin 600 mg in addition to the Tramadol that she has prescribed with instructions for follow-up. Patient appears stable for discharge at this time. Disposition Disposition: Discharge Clinical Impression: Cervical muscle strain Qualifiers: Encounter type: initial encounter Qualified Code(s): S16.1XXA - Strain of muscle, fascia and tendon at neck level, initial encounter Disposition: Home, Self-Care Condition: (2) Stable Instructions: Cervical Sprain (ED) Additional Instructions: Return to ED if your symptoms worsen or if you have any concerns. Motrin as directed. Follow-up with your family doctor in 3-5 days as directed. Prescriptions: Ibuprofen [Motrin 600Mg] 600 mg PO Q6H PRN #30 tablet PRN Reason: Pain - Mild To Moderate (1-7) Forms: Patient Portal Access Time of Disposition: 21:14 Quality - Quality Measures Quality Measures: N/A - Blood Pressure Screening Does Patient Have Any of the Following: No Blood Pressure Classification: Pre-Hypertensive BP Reading Systolic Measurement: 135 Diastolic Measurement: 85 Screening for High Blood Pressure: < Pre-Hypertensive BP, F/U Documented > [ G8950] Pre-Hypertensive Follow-up Interventions: Referral to alternative/primary care provider.
--- NOTE | 2018-11-12 15:01 | CT SCAN REPORT ---
DATE: 11/09/2018 at 2036 hours. EXAM: CT SCAN OF THE CERVICAL SPINE WITHOUT CONTRAST. HISTORY: WRESTLING INJURY. PAIN RIGHT SIDE OF THE NECK. TECHNIQUE: Noncontrast images of the cervical spine are obtained. Coronal and sagittal reformatted images are evaluated. FINDINGS: Vertebral body height and alignment are maintained. The intervertebral discs are preserved. Mild reversal of normal cervical lordosis at C4-5 may be secondary to muscular spasm or patient positioning. There is no evidence of fracture. There is no evidence of significant perivertebral hematoma. The craniocervical junction and cervical thoracic junctions are preserved. The visualized airway is intact. IMPRESSION: NEGATIVE CT SCAN OF THE CERVICAL SPINE. [facility]BER: [id number] [facility]
== END 2018-11-09 21:16 | disposition home or self-care (01) ==
LOC: ER 19:50
DX: S16.1XXA Strain of muscle, fascia and tendon at neck level, initial encounter (principal); X50.0XXA Overexertion from strenuous movement or load, initial encounter; Y92.009 Unspecified place in unspecified non-institutional (private) residence as the place of occurrence of the external cause; F17.210 Nicotine dependence, cigarettes, uncomplicated
CPT/HCPCS: 99283 ×2; 72125; J3490

== ENCOUNTER 2018-12-04 21:59 | Emergency (ER) | payer SELFPAY ==
--- NOTE | 2018-12-04 22:13 | Emergency Department Record ---
History of Present Illness - General Chief complaint: Pain Stated complaint: RT KNEE PAIN Time Seen by Provider: 12/04/18 22:07 Source: Patient Mode of Arrival: Ambulatory Limitations: No limitations - History of Present Illness Initial comments: 33 yo female presents to ED for evaluation of pain to the anterior/inferior aspect of the right knee following a fall at work earlier today. Patient reports direct blow to the interior aspect of the knee resulting in pain symptoms. Patient reports that she was seen and evaluated by the health-care provider at work, was told that her bruised the knee but it otherwise appears normal. Patient reports that her pain symptoms have worsened following her examination. Patient also reports previous arthroscopy to the right knee in [place]. MD Complaint: Joint pain Onset/Timin -: Days(s) Location: Right History of Same: Yes -: Yes Arthralgia Radiation: Proximal Quality: Aching Consistency: Constant Improves with: Rest Worsens with: Palpation Associated Symptoms: Denies other symptoms - Related Data Previous Rx's Medication Instructions Recorded Ibuprofen [Motrin 600Mg] 600 mg PO Q6H PRN #30 tablet 11/09/18 Allergies Allergy/AdvReac Type Severity Reaction Status Date / Time hydrocodone bitartrate Allergy Unknown pt states Verified 10/06/18 11:54 she passes out and vomits Review of Systems Constitutional: Denies: Chills, Fever, Malaise, Night sweats Eyes: Denies: Eye discharge, Eye pain ENT: Denies: Congestion, Ear pain, Epistaxis Respiratory: Denies: Cough, Dyspnea Cardiovascular: Denies: Chest pain, Dyspnea on exertion Endocrine: Denies: Fatigue, Heat or cold intolerance Gastrointestinal: Denies: Abdominal pain, Nausea, Vomiting Genitourinary: Denies: Incontinence, Retention Musculoskeletal: Reports: Arthralgia. Denies: Back pain, Gout, Joint swelling, Myalgia Skin: Denies: Bruising, Change in color Neurological: Denies: Abnormal gait, Confusion, Headache, Seizure Psychiatric: Denies: Anxiety Hematological/Lymphatic: Denies: Anemia, Blood Clots Past Medical History - SOCIAL HISTORY Smoking Status: Current every day smoker Drug Use: None - RESPIRATORY Hx Respiratory Disorders: Yes Hx COPD: Yes Hx Pneumonia: Yes Hx Sleep Apnea: Yes Hx of CPAP: Yes (sometimes) - CARDIOVASCULAR Hx Cardio Disorders: No Comment:: n/a - NEURO Hx Neuro Disorders: Yes Hx Headaches: Yes Hx of Migraines: Yes - GI Hx GI Disorders: Yes Hx Abdominal Pain: Yes Hx Reflux: Yes Hx Nausea/Vomiting: Yes Hx Rectal Bleeding: Yes - Hx Genitourinary Disorders: No Comment:: ovarian cyst-surgery scheduled for 08/2018 - ENDOCRINE Hx Endocrine Disorders: Yes Hx Diabetes: No Hx Thyroid Disease: Yes - MUSCULOSKELETAL Hx Musculoskeletal Disorders: Yes - PSYCH Hx Psych Problems: Yes Hx Anxiety: Yes Hx Behavior Problems: Yes Hx Depression: Yes - HEMATOLOGY/ONCOLOGY Hx Hematology/Oncology Disorders: No Family Medical History Hx Cancer: Grandparents Hx Diabetes: Grandparents Hx Heart Disease: Grandparents *Heart Comment: heart failure Hx HTN: Father Hx Seizures: Grandparents Hx Stroke: Grandparents *Stroke Comment: grandmother Physical Exam - General General Appearance: Alert, Oriented x3, Cooperative, Mild distress Limitations: No limitations - Head Head exam: Atraumatic, Normocephalic, Normal inspection Head exam detail: negative: Abrasion, Contusion, Lezama's sign, General tenderness, Hematoma, Laceration - Eye Eye exam: Normal appearance. negative: Conjunctival injection, Periorbital swelling, Periorbital tenderness, Scleral icterus - ENT Ear exam: negative: Auricular hematoma, Auricular trauma Nasal Exam: negative: Active bleeding, Discharge, Dried blood, Foreign body Mouth exam: negative: Drooling, Laceration, Muffled voice, Tongue elevation - Neck Neck exam: Normal inspection. negative: Meningismus, Tenderness - Respiratory Respiratory exam: Normal lung sounds bilaterally. negative: Rales, Respiratory distress, Rhonchi, Stridor - Cardiovascular Cardiovascular Exam: Regular rate, Normal rhythm, Normal heart sounds - GI/Abdominal GI/Abdominal exam: Soft. negative: Rebound, Rigid, Tenderness - Rectal Rectal exam: Deferred - exam: Deferred - Extremities Extremities exam: Tenderness (TTP along the anterior/inferior patella, no effusion present, flexion/extension of the LE intact, ACL/PCL ligaments are intact. Compartments of the lower extremity are soft on examination.), Other. negative: Calf tenderness, Pedal edema - Back Back exam: Denies: CVA tenderness (R), CVA tenderness (L) - Neurological Neurological exam: Alert, Normal gait, Oriented X3 - Psychiatric Psychiatric exam: Normal affect, Normal mood - Skin Skin exam: Normal color. negative: Abrasion Type of lesion: negative: abrasion Course - Reevaluation(s) Reevaluation #1: 12/04/18 22:40 Right Knee: No acute process identified Patient was updated on her radiograph result, appears stable for discharge at this time. Disposition Disposition: Discharge Clinical Impression: Contusion, knee Qualifiers: Encounter type: initial encounter Laterality: right Qualified Code(s): S80.01XA - Contusion of right knee, initial encounter Disposition: Home, Self-Care Condition: (2) Stable Instructions: Contusion in Adults (ED) Additional Instructions: Return to ED if your symptoms worsen or if you have any concerns. Ibuprofen as directed. Follow-up with your family doctor in 3-5 days as directed. Forms: Patient Portal Access Time of Disposition: 22:40 Quality - Quality Measures Quality Measures: N/A - Blood Pressure Screening Does Patient Have Any of the Following: No Blood Pressure Classification: Pre-Hypertensive BP Reading Systolic Measurement: 113 Diastolic Measurement: 80 Screening for High Blood Pressure: < Pre-Hypertensive BP, F/U Documented > [ G8950] Pre-Hypertensive Follow-up Interventions: Referral to alternative/primary care provider.
--- NOTE | 2018-12-06 06:56 | RADIOLOGY REPORT ---
EXAM: RIGHT KNEE HISTORY: PATIENT FELL ON HER KNEE AT WORK TODAY. TECHNIQUE: Four views of the right knee were obtained. Comparison: None. Encounter: Initial. FINDINGS: The right knee appears intact with no definite fracture or dislocation seen. No definite joint effusion evident as well. IMPRESSION: THE RIGHT KNEE APPEARS NEGATIVE WITH NO DEFINITE FRACTURE IDENTIFIED. JOB NUMBER: [id number] [facility]
== END 2018-12-04 22:49 | disposition home or self-care (01) ==
LOC: ER 21:59
DX: S80.01XA Contusion of right knee, initial encounter (principal); W19.XXXA Unspecified fall, initial encounter; Y99.0 Civilian activity done for income or pay; J44.9 Chronic obstructive pulmonary disease, unspecified; F17.210 Nicotine dependence, cigarettes, uncomplicated
CPT/HCPCS: 99283

== ENCOUNTER 2018-12-30 00:51 | Emergency (ER) | payer MEDICAID ==
[2018-12-30] MEDS ORDERED: KETOROLAC 30 MG/ML VIAL IVP ONE (00:57)
[2018-12-30] MEDS ORDERED: 0.9 % SODIUM CHLORIDE 1,000 ML BAG IV ONE (00:57)
[2018-12-30] MEDS ORDERED: ONDANSETRON HCL IV 4 MG/2 ML VIAL IVP ONE (00:57)
--- NOTE | 2018-12-30 01:04 | Emergency Department Record ---
History of Present Illness - General Chief complaint: Nausea, Vomiting, Diarrhea Stated complaint: PAIN IN RIGHT SIDE FEELS LIKE THROWING UP Time Seen by Provider: 12/30/18 00:52 Source: Patient Mode of Arrival: Ambulatory Limitations: No limitations - History of Present Illness Initial comments: 33 yo female presents with nausea (without vomiting), diarrhea and right sided crampy abdominal pain. The onset of the diarrhea was three days ago. No fever or blood in the diarrhea. The pain is over the right side of the abdomen that started tonight just prior to arrival. No recent antibiotics. No definite sicks contacts. No recent antibiotics. She has had her gall bladder removed. No urinary symptoms. No hematuria. PCP Dr Plummer in [place]. She reports she has had chronic diarrhea for about 8 years. She will usually have a loose stool within 30 minutes of eating. MD complaint: Abdominal pain, Diarrhea, Nausea Onset/Timin -: Days(s) Description of Vomiting: Watery Description of Diarrhea: Water, Other Associated Abdominal Pain: Yes Location: RUQ Radiation: RUQ, RLQ Severity: Moderate Severity scale (1-10): 7 Quality: Aching, Cramping Consistency: Intermittent Improves with: None Worsens with: None Context: Other Associated Symptoms: Nausea/vomiting - Related Data Previous Rx's Medication Instructions Recorded Ibuprofen [Motrin 600Mg] 600 mg PO Q6H PRN #30 tablet 11/09/18 Ondansetron [Zofran Odt] 4 mg PO Q8H #15 tab.rapdis 12/30/18 Allergies Allergy/AdvReac Type Severity Reaction Status Date / Time hydrocodone bitartrate Allergy Unknown pt states Verified 10/06/18 11:54 she passes out and vomits Travel Screening - Travel/Exposure Within Last 30 Days Have you traveled within the last 30 days?: No - Travel Symptoms Symptom Screening: Diarrhea Review of Systems Constitutional: Reports: Malaise. Denies: Chills, Fever Eyes: Denies: Eye discharge ENT: Denies: Congestion, Ear pain, Throat pain Respiratory: Denies: Cough, Dyspnea, Hemoptysis, Wheezes Cardiovascular: Denies: Chest pain, Palpitations, Syncope Endocrine: Reports: Fatigue Gastrointestinal: Reports: Abdominal pain, Diarrhea, Nausea. Denies: Constipation, Hematemesis, Hematochezia, Melena, Vomiting Genitourinary: Denies: Dysuria, Urgency Musculoskeletal: Denies: Arthralgia, Back pain, Myalgia Skin: Denies: Bruising, Change in color, Rash Neurological: Denies: Headache, Weakness Psychiatric: Denies: Anxiety Hematological/Lymphatic: Denies: Easy bleeding, Easy bruising, Swollen glands Past Medical History - SOCIAL HISTORY Smoking Status: Current every day smoker Alcohol Use: None Drug Use: None - RESPIRATORY Hx Respiratory Disorders: Yes Hx COPD: Yes Hx Pneumonia: Yes Hx Sleep Apnea: Yes Hx of CPAP: Yes (sometimes) - CARDIOVASCULAR Hx Cardio Disorders: No Comment:: n/a - NEURO Hx Neuro Disorders: Yes Hx Headaches: Yes Hx of Migraines: Yes - GI Hx GI Disorders: Yes Hx Abdominal Pain: Yes Hx Reflux: Yes Hx Nausea/Vomiting: Yes Hx Rectal Bleeding: Yes - Hx Genitourinary Disorders: No Comment:: ovarian cyst-surgery scheduled for 08/2018 - ENDOCRINE Hx Endocrine Disorders: Yes Hx Diabetes: No Hx Thyroid Disease: Yes - MUSCULOSKELETAL Hx Musculoskeletal Disorders: Yes - PSYCH Hx Psych Problems: Yes Hx Anxiety: Yes Hx Behavior Problems: Yes Hx Depression: Yes - HEMATOLOGY/ONCOLOGY Hx Hematology/Oncology Disorders: No Family Medical History Any Significant Family History?: Yes Hx Cancer: Grandparents Hx Diabetes: Grandparents Hx Heart Disease: Grandparents *Heart Comment: heart failure Hx HTN: Father Hx Seizures: Grandparents Hx Stroke: Grandparents *Stroke Comment: grandmother Physical Exam - General General Appearance: Alert, Oriented x3, Cooperative, No acute distress Limitations: No limitations - Head Head exam: Atraumatic, Normal inspection - Eye Eye exam: Normal appearance. negative: Conjunctival injection - ENT ENT exam: Normal exam, Mucous membranes moist Ear exam: Normal external inspection Nasal Exam: Normal inspection Mouth exam: Normal external inspection Teeth exam: Normal inspection Throat exam: Normal inspection - Neck Neck exam: Normal inspection - Respiratory Respiratory exam: Normal lung sounds bilaterally. negative: Respiratory distress - Cardiovascular Cardiovascular Exam: Regular rate, Normal rhythm, Normal heart sounds - GI/Abdominal GI/Abdominal exam: Soft, Tenderness (very soft abdomen, mildly tender right lateral flank). negative: Diminished bowel sounds, Distended, Guarding, Rebound , Rigid - Rectal Rectal exam: Deferred - exam: Deferred - Extremities Extremities exam: Normal inspection - Back Back exam: Reports: CVA tenderness (R), Tenderness. Denies: CVA tenderness (L) , Rash noted - Neurological Neurological exam: Alert, Oriented X3 - Psychiatric Psychiatric exam: Normal affect, Normal mood. negative: Agitated, Anxious - Skin Skin exam: Dry, Intact, Normal color, Warm Course Vital Signs 12/30/18 00:55 Temperature 98.4 F Pulse Rate 110 H Respiratory 20 Rate Blood Pressure 116/83 Pulse Ox 97 - Reevaluation(s) Reevaluation #1: The vitals were reviewed. No fever Three prior CT's reviewed from 2016 to 2018 of the abdomen and pelvis. S/P gall bladder, no renal stones, S/P hysterectomy. 12/30/18 01:03 The UA was negative The CBC was reviewed. No abnormalities. 12/30/18 01:54 12/30/18 01:57 The CMP was reviewed. Minimal changes in the ALT and AST. The Lipase is normal Medical Decision Making - Lab Data Result diagrams: 12/30/18 01:25 12/30/18 01:25 Disposition Disposition: Discharge Clinical Impression: Nausea Diarrhea Qualifiers: Diarrhea type: unspecified type Qualified Code(s): R19.7 - Diarrhea, unspecified Abdominal pain Qualifiers: Abdominal location: unspecified location Qualified Code(s): R10.9 - Unspecified abdominal pain Disposition: Home, Self-Care Condition: (1) Good Instructions: Acute Nausea and Vomiting (ED), Acute Diarrhea (ED) Additional Instructions: Rest and stay well hydrated Return if you have fever, uncontrolled vomiting or diarrhea Call your doctor for a recheck first of the week Prescriptions: Ondansetron [Zofran Odt] 4 mg PO Q8H #15 tab.rapdis Forms: Patient Portal Access Time of Disposition: 02:05 Quality - Quality Measures Quality Measures: N/A - Blood Pressure Screening Does Patient Have Any of the Following: No Blood Pressure Classification: Pre-Hypertensive BP Reading Systolic Measurement: 116 Diastolic Measurement: 83 Screening for High Blood Pressure: < Pre-Hypertensive BP, F/U Documented > [ G8950] Pre-Hypertensive Follow-up Interventions: Referral to alternative/primary care provider.
[2018-12-30] MEDS ORDERED: KETOROLAC 30 MG/ML VIAL IM ONE (01:09)
[2018-12-30] MEDS ORDERED: ONDANSETRON 4 MG ODT TABLET SL ONE (01:09)
[2018-12-30 01:30] LABS: BASO % 0.7 % (0-6); EOS % 4.8 % (0-6); GRAN % 47.3 % (47-80); HEMATOCRIT 41.5 % (35.0-47.0); HEMOGLOBIN 14.2 gm/dl (11.6-16.0); MEAN CELL VOLUME 92.8 fl (81-97); MEAN CORPUSCULAR HEMOGLOBIN 31.8 pg (27-33); MEAN CORPUSCULAR HGB CONC 34.2 g/dl (32-36); MEAN PLATELET VOLUME 9.9 fl (7.4-10.4); MONO % 9.2 % (0-9); PLATELET COUNT 263 K/uL (130-400); RED BLOOD COUNT 4.47 M/uL (3.80-5.40); RED CELL DISTRIBUTION WIDTH 13.1 % (11.5-14.5); URINE APPEARANCE CLEAR; URINE BILIRUBIN NEGATIVE (NEGATIVE); URINE BLOOD NEGATIVE (NEGATIVE); URINE COLOR YELLOW; URINE GLUCOSE (UA) NEGATIVE (NEGATIVE); URINE KETONE NEGATIVE (NEGATIVE); URINE LEUKOCYTE ESTERASE NEGATIVE (NEGATIVE); URINE NITRITE NEGATIVE (NEGATIVE); URINE PROTEIN NEGATIVE (NEGATIVE); URINE UROBILINOGEN 0.2 E.U./dL (0.20 - 1.00); WHITE BLOOD COUNT W/O DIFF 9.1 K/uL (4.2-12.2)
[2018-12-30 01:42] LABS: BLOOD UREA NITROGEN 13 mg/dL (6-20)
[2018-12-30 01:43] LABS: CREATININE 0.7 mg/dL (0.5-0.9); EST GLOMERULAR FILTRATION RATE > 60 mL/min; LIPASE 58 U/L (13-60)
[2018-12-30 01:45] LABS: GLUCOSE,RANDOM 106 mg/dL (74-109)
[2018-12-30 01:48] LABS: ALB/GLOB RATIO 1.5 (1.1-1.8); ALBUMIN 4.2 g/dL (4.0-5.0); ALKALINE PHOSPHATASE 61 U/L (45-87); ALT/SGPT 84 U/L (<33); AST/SGOT 44 U/L (10.0-35.0)
== END 2018-12-30 02:32 | disposition home or self-care (01) ==
LOC: ER 00:51
DX: R10.31 Right lower quadrant pain (principal); R11.0 Nausea; R19.7 Diarrhea, unspecified; J44.9 Chronic obstructive pulmonary disease, unspecified; F17.210 Nicotine dependence, cigarettes, uncomplicated
CPT/HCPCS: 80053; 81003; 83690; 85025; 96372; 99284; J1885; J7030

== ENCOUNTER 2019-03-22 11:14 | Emergency (ER) | payer MEDICAID ==
--- NOTE | 2019-03-22 11:19 | Emergency Department Record ---
History of Present Illness - General Chief complaint: Extremity Problem Stated complaint: RIGHT HAND INJURY Time Seen by Provider: 03/22/19 11:17 Source: Patient Mode of Arrival: Ambulatory Limitations: No limitations - History of Present Illness Initial comments: 34 yo female presents with wrist pain for the last three days. The right wrist was pulled by a dog on it's leash. The skin is intact. She has had prior carpal tunnel surgery of the wrist. She is right handed. MD Complaint: Joint pain -: Days(s) Location: Left History of Same: No -: Yes Arthralgia Radiation: Distal Quality: Aching Consistency: Constant Improves with: Immobilization Worsens with: Palpation, Weight bearing Associated Symptoms: Denies other symptoms - Related Data Allergies Allergy/AdvReac Type Severity Reaction Status Date / Time hydrocodone bitartrate Allergy Unknown pt states Verified 10/06/18 11:54 she passes out and vomits Review of Systems Constitutional: Denies: Chills, Fever, Malaise, Weakness Eyes: Denies: Eye discharge ENT: Denies: Congestion, Throat pain Respiratory: Denies: Cough Cardiovascular: Denies: Chest pain, Palpitations, Syncope Endocrine: Denies: Fatigue Gastrointestinal: Denies: Abdominal pain, Diarrhea, Nausea, Vomiting Genitourinary: Denies: Dysuria Musculoskeletal: Reports: As per HPI, Arthralgia, Joint swelling, Myalgia Skin: Reports: As per HPI, Bruising Neurological: Denies: Headache, Numbness, Tingling Psychiatric: Denies: Anxiety Hematological/Lymphatic: Denies: Easy bleeding, Easy bruising Past Medical History - SOCIAL HISTORY Smoking Status: Current every day smoker Drug Use: None - RESPIRATORY Hx Respiratory Disorders: Yes Hx COPD: Yes Hx Pneumonia: Yes Hx Sleep Apnea: Yes Hx of CPAP: Yes (sometimes) - CARDIOVASCULAR Hx Cardio Disorders: No Comment:: n/a - NEURO Hx Neuro Disorders: Yes Hx Headaches: Yes Hx of Migraines: Yes - GI Hx GI Disorders: Yes Hx Abdominal Pain: Yes Hx Reflux: Yes Hx Nausea/Vomiting: Yes Hx Rectal Bleeding: Yes - Hx Genitourinary Disorders: No Comment:: ovarian cyst-surgery scheduled for 08/2018 - ENDOCRINE Hx Endocrine Disorders: Yes Hx Diabetes: No Hx Thyroid Disease: Yes - MUSCULOSKELETAL Hx Musculoskeletal Disorders: Yes - PSYCH Hx Psych Problems: Yes Hx Anxiety: Yes Hx Behavior Problems: Yes Hx Depression: Yes - HEMATOLOGY/ONCOLOGY Hx Hematology/Oncology Disorders: No Family Medical History Hx Cancer: Grandparents Hx Diabetes: Grandparents Hx Heart Disease: Grandparents *Heart Comment: heart failure Hx HTN: Father Hx Seizures: Grandparents Hx Stroke: Grandparents *Stroke Comment: grandmother Physical Exam - General General Appearance: Alert, Oriented x3, Cooperative, No acute distress Limitations: No limitations - Head Head exam: Atraumatic - Eye Eye exam: Normal appearance. negative: Conjunctival injection - ENT ENT exam: Normal exam Ear exam: Normal external inspection Nasal Exam: Normal inspection Mouth exam: Normal external inspection - Neck Neck exam: Normal inspection - Respiratory Respiratory exam: Normal lung sounds bilaterally. negative: Respiratory distress - Cardiovascular Cardiovascular Exam: Regular rate, Normal rhythm, Normal heart sounds Peripheral Pulses: 2+: Radial (R) - Rectal Rectal exam: Deferred - exam: Deferred - Extremities Extremities exam: Joint swelling, Normal capillary refill, Tenderness. negative : Normal inspection Image of Full Body: 1 - tenderness and swelling, intact skin, full ROM but some pain, - Neurological Neurological exam: Alert, Oriented X3 - Psychiatric Psychiatric exam: Normal affect, Normal mood - Skin Skin exam: Dry, Intact, Normal color, Warm Course - Reevaluation(s) Reevaluation #1: The XR was reviewed No definite displaced fracture or dislocation She will be treated supportively with a splint 03/22/19 11:41 Disposition Disposition: Discharge Clinical Impression: Right wrist sprain Disposition: Home, Self-Care Condition: (1) Good Instructions: Wrist Sprain (ED) Additional Instructions: Call your doctor for the next available follow up appointment if the pain continues first of the week. Return to the ER for a recheck if worse, any new concerns or questions Review this ER visit and the tests performed with your family doctor Forms: Patient Portal Access Time of Disposition: 11:41 Quality - Quality Measures Quality Measures: N/A - Blood Pressure Screening Does Patient Have Any of the Following: No Blood Pressure Classification: Normal BP Reading Systolic Measurement: 105 Diastolic Measurement: 76 Screening for High Blood Pressure: < Normal BP, F/U Not Required > [G8525]
== END 2019-03-22 11:56 | disposition home or self-care (01) ==
LOC: ER 11:14
DX: S63.501A Unspecified sprain of right wrist, initial encounter (principal); X50.0XXA Overexertion from strenuous movement or load, initial encounter; Y93.K1 Activity, walking an animal; F17.210 Nicotine dependence, cigarettes, uncomplicated
CPT/HCPCS: 99283

== ENCOUNTER 2019-05-06 08:35 | Emergency (ER) | payer MEDICAID ==
--- NOTE | 2019-05-06 08:53 | Emergency Department Record ---
History of Present Illness - General Chief complaint: ENT Time Seen by Provider: 05/06/19 08:45 Source: Patient Mode of Arrival: Ambulatory Limitations: No limitations - History of Present Illness Initial comments: Pt with two day hx of discomfort in throat on right side when swallowing. Pt relates fever of "102 I think" yesterday. Not today. Pt is smoker with cough that is occasionally productive. No pain to throat when not swallowing. Took OTC meds at home without relief. Pt concerned may be related to a change in the "thyroid meds". Pt has not had choking episode or eaten any food that may have irritated her esophagus to her memory. Onset/Timin -: Days(s) Location: Throat Severity: Mild Severity scale (1-10): 3 Quality: Aching Consistency: Constant Improves with: None Worsens with: None Associated Symptoms: Cough, Pain with swallowing, Sore throat - Related Data Allergies Allergy/AdvReac Type Severity Reaction Status Date / Time hydrocodone bitartrate Allergy Unknown pt states Verified 05/06/19 08:42 she passes out and vomits Travel Screening - Travel/Exposure Within Last 30 Days Have you traveled within the last 30 days?: No Review of Systems Constitutional: Reports: Fever. Denies: Chills, Weakness Eyes: Denies: Eye discharge, Photophobia ENT: Reports: Throat pain. Denies: Congestion, Dental pain, Ear pain, Hearing loss Respiratory: Reports: Cough. Denies: Hemoptysis, Wheezes Cardiovascular: Denies: Chest pain, Palpitations Endocrine: Denies: Fatigue, Polyuria Gastrointestinal: Denies: Abdominal pain, Diarrhea, Nausea, Vomiting Musculoskeletal: Denies: Arthralgia Skin: Denies: Rash Neurological: Denies: Headache, Weakness Psychiatric: Denies: Anxiety Hematological/Lymphatic: Denies: Anemia Past Medical History - SOCIAL HISTORY Smoking Status: Current every day smoker Alcohol Use: None Drug Use: None - RESPIRATORY Hx Respiratory Disorders: Yes Hx COPD: Yes Hx Pneumonia: Yes Hx Sleep Apnea: Yes Hx of CPAP: Yes (sometimes) - CARDIOVASCULAR Hx Cardio Disorders: No Comment:: n/a - NEURO Hx Neuro Disorders: Yes Hx Headaches: Yes Hx of Migraines: Yes - GI Hx GI Disorders: Yes Hx Abdominal Pain: Yes Hx Reflux: Yes Hx Nausea/Vomiting: Yes Hx Rectal Bleeding: Yes - Hx Genitourinary Disorders: No Comment:: ovarian cyst-surgery scheduled for 08/2018 - ENDOCRINE Hx Endocrine Disorders: Yes Hx Diabetes: No Hx Thyroid Disease: Yes - MUSCULOSKELETAL Hx Musculoskeletal Disorders: Yes - PSYCH Hx Psych Problems: Yes Hx Anxiety: Yes Hx Behavior Problems: Yes Hx Depression: Yes - HEMATOLOGY/ONCOLOGY Hx Hematology/Oncology Disorders: No Family Medical History Any Significant Family History?: Yes Hx Cancer: Grandparents Hx Diabetes: Grandparents Hx Heart Disease: Grandparents *Heart Comment: heart failure Hx HTN: Father Hx Seizures: Grandparents Hx Stroke: Grandparents *Stroke Comment: grandmother Physical Exam - General General Appearance: Alert, Oriented x3, Cooperative, No acute distress Limitations: Other (non toxic ) - Head Head exam: Atraumatic - Eye Eye exam: Normal appearance, PERRL, EOMI - ENT ENT exam: Mucous membranes moist, Normal external ear exam, Normal orophraynx, TM's normal bilaterally Ear exam: Normal external inspection Nasal Exam: Normal inspection Mouth exam: Normal external inspection, Tongue normal. negative: Drooling, Muffled voice, Tongue elevation Teeth exam: Normal inspection Throat exam: Normal inspection. negative: Tonsillar erythema, Tonsillar exudate - Neck Neck exam: Normal inspection, Full ROM. negative: Lymphadenopathy, Tenderness, Thyromegaly - Respiratory Respiratory exam: Normal lung sounds bilaterally. negative: Respiratory distress, Wheezes - Cardiovascular Cardiovascular Exam: Regular rate, Normal rhythm, Normal heart sounds. negative: Tachycardia - GI/Abdominal GI/Abdominal exam: Soft. negative: Tenderness - Extremities Extremities exam: Normal inspection - Neurological Neurological exam: Alert, Normal gait, Oriented X3 - Psychiatric Psychiatric exam: Normal affect, Normal mood - Skin Skin exam: Normal color. negative: Rash Course Vital Signs 05/06/19 08:39 Temperature 97.6 F Pulse Rate 85 Respiratory 18 Rate Blood Pressure 129/86 Pulse Ox 99 - Reevaluation(s) Reevaluation #1: 05/06/19 08:51 Pt seen, non toxic, weel appearing, with 2 days of "sore throat". Subjective fevers yesterday. Strep screen done and neg. Cocnern for Throid meds. At this time there is no emergent issues of evidence of infection requiring AB treatments. Recommend the patient follow with Primary child caregiver to discuss symptoms and thyroid. Discussed with patient. Questions answered. 05/06/19 09:02 Disposition Disposition: Discharge Clinical Impression: Throat pain in adult Disposition: Home, Self-Care Condition: (1) Good Instructions: Pharyngitis (ED) Additional Instructions: Salt water gargles. Over the counter meds or lozenges as needed. Follow with your doctor to discuss thyroid meds. Return to the ED as needed. Forms: Patient Portal Access Time of Disposition: 09:02 Quality - Quality Measures Quality Measures: N/A - Blood Pressure Screening Does Patient Have Any of the Following: No Blood Pressure Classification: Pre-Hypertensive BP Reading Systolic Measurement: 129 Diastolic Measurement: 86 Screening for High Blood Pressure: Patient Exclusion, Hx of HTN [G9744]
== END 2019-05-06 09:12 | disposition home or self-care (01) ==
LOC: ER 08:35
DX: R07.0 Pain in throat (principal); F17.200 Nicotine dependence, unspecified, uncomplicated; E07.9 Disorder of thyroid, unspecified; J44.9 Chronic obstructive pulmonary disease, unspecified
CPT/HCPCS: 87880; 99282

== ENCOUNTER 2019-05-26 22:57 | Emergency (ER) | payer MEDICAID ==
[2019-05-26] MEDS ORDERED: TOPICAL LIDOCAINE W/ EPI 5 ML TOP ONE (23:03)
[2019-05-26] MEDS ORDERED: TRANEXAMIC ACID 1,000 MG/10 ML ML TOP ONE (23:03)
--- NOTE | 2019-05-26 23:08 | Emergency Department Record ---
History of Present Illness - General Stated complaint: BLOODY NOSE Time Seen by Provider: 05/26/19 23:02 Source: Patient Mode of Arrival: Ambulatory Limitations: No limitations - History of Present Illness Initial comments: 34 yo female presents with a nose bleed that started about 20 minutes ago. No history of nose bleeds in the past. The onset was while driving. It involved the left nostril. No blood thinners. MD complaint: Epistaxis -: Minutes(s) (20) Location: Nose Severity: Moderate Quality: Other Consistency: Constant Improves with: None Worsens with: None Context-Epistaxis: Other - Related Data Home Medications Medication Instructions Recorded Confirmed Last Taken Amoxicillin [Amoxil] 875 mg PO BID 05/26/19 05/26/19 Unknown Previous Rx's Medication Instructions Recorded Amoxicillin 500Mg Capsule [Amoxil] 500 mg PO TID #9 tab 05/27/19 Allergies Allergy/AdvReac Type Severity Reaction Status Date / Time hydrocodone bitartrate Allergy Unknown pt states Verified 05/06/19 08:42 she passes out and vomits Review of Systems Constitutional: Denies: Chills, Fever, Malaise, Weakness Eyes: Denies: Eye discharge, Eye pain ENT: Reports: As per HPI, Congestion, Epistaxis Respiratory: Denies: Cough, Dyspnea Cardiovascular: Denies: Chest pain, Syncope Endocrine: Denies: Fatigue, Polydipsia, Polyuria Gastrointestinal: Denies: Abdominal pain, Diarrhea, Nausea, Vomiting Genitourinary: Denies: Dysuria Musculoskeletal: Denies: Arthralgia, Back pain, Myalgia Skin: Denies: Bruising, Change in color, Rash Neurological: Denies: Headache Psychiatric: Denies: Anxiety Hematological/Lymphatic: Denies: Easy bleeding, Easy bruising Past Medical History - SOCIAL HISTORY Smoking Status: Current every day smoker Drug Use: None - RESPIRATORY Hx Respiratory Disorders: Yes Hx COPD: Yes Hx Pneumonia: Yes Hx Sleep Apnea: Yes Hx of CPAP: Yes (sometimes) - CARDIOVASCULAR Hx Cardio Disorders: No Comment:: n/a - NEURO Hx Neuro Disorders: Yes Hx Headaches: Yes Hx of Migraines: Yes - GI Hx GI Disorders: Yes Hx Abdominal Pain: Yes Hx Reflux: Yes Hx Nausea/Vomiting: Yes Hx Rectal Bleeding: Yes - Hx Genitourinary Disorders: No Comment:: ovarian cyst-surgery scheduled for 08/2018 - ENDOCRINE Hx Endocrine Disorders: Yes Hx Diabetes: No Hx Thyroid Disease: Yes - MUSCULOSKELETAL Hx Musculoskeletal Disorders: Yes - PSYCH Hx Psych Problems: Yes Hx Anxiety: Yes Hx Behavior Problems: Yes Hx Depression: Yes - HEMATOLOGY/ONCOLOGY Hx Hematology/Oncology Disorders: No Family Medical History Hx Cancer: Grandparents Hx Diabetes: Grandparents Hx Heart Disease: Grandparents *Heart Comment: heart failure Hx HTN: Father Hx Seizures: Grandparents Hx Stroke: Grandparents *Stroke Comment: grandmother Physical Exam - General General Appearance: Alert, Oriented x3, Cooperative, No acute distress Limitations: No limitations - Head Head exam: Atraumatic, Normal inspection - Eye Eye exam: Normal appearance. negative: Conjunctival injection - ENT ENT exam: Mucous membranes moist, Normal orophraynx. negative: Normal exam, Mucous membranes dry Ear exam: Normal external inspection Nasal Exam: Active bleeding (mild left nostril). negative: Normal inspection, Discharge, Foreign body, Sinus tenderness Mouth exam: Normal external inspection Teeth exam: Normal inspection Throat exam: Normal inspection - Neck Neck exam: Normal inspection - Respiratory Respiratory exam: negative: Accessory muscle use, Prolonged expiratory, Respiratory distress - Rectal Rectal exam: Deferred - exam: Deferred - Neurological Neurological exam: Alert, Oriented X3 - Psychiatric Psychiatric exam: Normal affect, Normal mood - Skin Skin exam: Dry, Intact, Normal color, Warm Course - Reevaluation(s) Reevaluation #1: The left nostril was cleared of blood TXA was atomized in the left nostril The nostril was packed with cotton soaked in TLE 05/26/19 23:13 05/27/19 00:06 The left septum was cauterized over the site of oozing The left nostril then was packed with 3cm of merocel She will return in three days for removal. Disposition Disposition: Discharge Clinical Impression: Epistaxis Disposition: Home, Self-Care Condition: (1) Good Instructions: Nosebleed (ED) Additional Instructions: Return in three days for packing removal Review this ER visit and the tests performed with your family doctor Return to the ER for a recheck if worse, any new concerns or questions Take the prescriptions provided as directed Prescriptions: Amoxicillin 500Mg Capsule [Amoxil] 500 mg PO TID #9 tab Time of Disposition: 00:07 Quality - Quality Measures Quality Measures: N/A - Blood Pressure Screening Does Patient Have Any of the Following: No Blood Pressure Classification: Pre-Hypertensive BP Reading Systolic Measurement: 138 Diastolic Measurement: 84 Screening for High Blood Pressure: < Pre-Hypertensive BP, F/U Documented > [G8950] Pre-Hypertensive Follow-up Interventions: Referral to alternative/primary care provider.
[2019-05-27] MEDS ORDERED: AMOXICILLIN 500MG CAPSULE PO ONE (00:05)
== END 2019-05-27 00:31 | disposition home or self-care (01) ==
LOC: ER 22:57
DX: R04.0 Epistaxis (principal); J44.9 Chronic obstructive pulmonary disease, unspecified; F17.210 Nicotine dependence, cigarettes, uncomplicated
CPT/HCPCS: 30901 ×2; 99283 ×2; J3490

== ENCOUNTER 2019-05-27 12:34 | Emergency (ER) | payer MEDICAID ==
--- NOTE | 2019-05-27 13:50 | Emergency Department Record ---
History of Present Illness - General Chief complaint: ENT Stated complaint: REMOVE PACKING FROM NOSE Time Seen by Provider: 05/27/19 13:44 Source: Patient, RN notes reviewed Mode of Arrival: Ambulatory - History of Present Illness Initial comments: left nostril nose bleed and she was here last night about 14 hours ago and had cautery and packing and she is saying it is to painful and wants the packing out. No active bleeding around the packing and no bleeding in the posterior throat. Onset/Timin -: Hour(s) Location: Nose Severity: Moderate Severity scale (1-10): 7 Quality: Aching Consistency: Constant Improves with: None Worsens with: None - Related Data Previous Rx's Medication Instructions Recorded Amoxicillin 500Mg Capsule [Amoxil] 500 mg PO TID #9 tab 05/27/19 Allergies Allergy/AdvReac Type Severity Reaction Status Date / Time hydrocodone bitartrate Allergy Unknown pt states Verified 05/06/19 08:42 she passes out and vomits Travel Screening - Travel/Exposure Within Last 30 Days Have you traveled within the last 30 days?: No - Travel/Exposure Within Last Year Have you traveled outside the [place] in the last year?: No - Additonal Travel Details Have you been exposed to anyone with a communicable illness?: No - Travel Symptoms Symptom Screening: None Review of Systems Reviewed: No additional complaints except as noted below Constitutional: Reports: As per HPI. Denies: Chills, Fever, Malaise, Night sweats, Weakness, Weight change Eyes: Reports: As per HPI. Denies: Eye discharge, Eye pain, Photophobia, Vision change ENT: Reports: As per HPI. Denies: Congestion, Dental pain, Ear pain, Epistaxis, Hearing loss, Throat pain Respiratory: Reports: As per HPI. Denies: Cough, Dyspnea, Hemoptysis, Stridor, Wheezes Cardiovascular: Reports: As per HPI. Denies: Arrhythmia, Chest pain, Dyspnea on exertion, Edema, Murmurs, Orthopnea, Palpitations, Paroxysmal nocturnal dyspnea, Rheumatic Fever, Syncope Endocrine: Reports: As per HPI. Denies: Fatigue, Heat or cold intolerance, Polydipsia, Polyuria Gastrointestinal: Reports: As per HPI. Denies: Abdominal pain, Constipation, Diarrhea, Hematemesis, Hematochezia, Melena, Nausea, Vomiting Genitourinary: Reports: As per HPI. Denies: Abnormal menses, Discharge, Dyspareunia, Dysuria, Frequency, Hematuria, Incontinence, Retention, Urgency Musculoskeletal: Reports: As per HPI. Denies: Arthralgia, Back pain, Gout, Joint swelling, Myalgia, Neck pain Skin: Reports: As per HPI. Denies: Bruising, Change in color, Change in hair/nails, Lesions, Pruritus, Rash Neurological: Reports: As per HPI. Denies: Abnormal gait, Confusion, Headache, Numbness, Paresthesias, Seizure, Tingling, Tremors, Vertigo, Weakness Psychiatric: Reports: As per HPI. Denies: Anxiety, Auditory hallucinations, Depression, Homicidal thoughts, Suicidal thoughts, Visual hallucinations Hematological/Lymphatic: Reports: As per HPI. Denies: Anemia, Blood Clots, Easy bleeding, Easy bruising, Swollen glands Past Medical History - SOCIAL HISTORY Smoking Status: Current every day smoker Alcohol Use: None Drug Use: None - RESPIRATORY Hx Respiratory Disorders: Yes Hx COPD: Yes Hx Pneumonia: Yes Hx Sleep Apnea: Yes Hx of CPAP: Yes (sometimes) - CARDIOVASCULAR Hx Cardio Disorders: No Comment:: n/a - NEURO Hx Neuro Disorders: Yes Hx Headaches: Yes Hx of Migraines: Yes - GI Hx GI Disorders: Yes Hx Abdominal Pain: Yes Hx Reflux: Yes Hx Nausea/Vomiting: Yes Hx Rectal Bleeding: Yes - Hx Genitourinary Disorders: No Comment:: ovarian cyst-surgery scheduled for 08/2018 - ENDOCRINE Hx Endocrine Disorders: Yes Hx Diabetes: No Hx Thyroid Disease: Yes - MUSCULOSKELETAL Hx Musculoskeletal Disorders: Yes - PSYCH Hx Psych Problems: Yes Hx Anxiety: Yes Hx Behavior Problems: Yes Hx Depression: Yes - HEMATOLOGY/ONCOLOGY Hx Hematology/Oncology Disorders: No Family Medical History Any Significant Family History?: Yes Hx Cancer: Grandparents Hx Diabetes: Grandparents Hx Heart Disease: Grandparents *Heart Comment: heart failure Hx HTN: Father Hx Seizures: Grandparents Hx Stroke: Grandparents *Stroke Comment: grandmother Physical Exam - General General Appearance: Alert, Oriented x3, Cooperative, No acute distress - Head Head exam: Normal inspection - Eye Eye exam: Normal appearance, PERRL Pupils: Normal accommodation - ENT ENT exam: Normal exam, Mucous membranes moist, Normal external ear exam, Normal orophraynx, TM's normal bilaterally Ear exam: Normal external inspection. negative: External canal tenderness Nasal Exam: Normal inspection. negative: Discharge, Sinus tenderness Mouth exam: Normal external inspection, Tongue normal Teeth exam: Normal inspection. negative: Dental caries Throat exam: Normal inspection. negative: Tonsillar erythema, Tonsillar exudate - Neck Neck exam: Normal inspection, Full ROM. negative: Tenderness - Respiratory Respiratory exam: Normal lung sounds bilaterally. negative: Respiratory distress - Cardiovascular Cardiovascular Exam: Regular rate, Normal rhythm, Normal heart sounds - GI/Abdominal GI/Abdominal exam: Soft, Normal bowel sounds. negative: Tenderness - Rectal Rectal exam: Deferred - exam: Deferred - Extremities Extremities exam: Normal inspection, Full ROM, Normal capillary refill. negative: Tenderness - Back Back exam: Reports: Normal inspection, Full ROM. Denies: Muscle spasm, Rash noted, Tenderness - Neurological Neurological exam: Alert, Normal gait, Oriented X3, Reflexes normal - Psychiatric Psychiatric exam: Normal affect, Normal mood - Skin Skin exam: Dry, Intact, Normal color, Warm Course Vital Signs 05/27/19 13:02 Temperature 98.1 F Pulse Rate [ 94 H Left Radial] Respiratory 18 Rate Blood Pressure 124/83 [Left Arm] Pulse Ox 97 - Reevaluation(s) Reevaluation #1: explained to patient risk of rebleeding is high removint the packing this early and initially wanted packing in place for three days. Tried to offer tylenol she refused tylenol and hasn't taken any pain meds. She still wants the packing out . 05/27/19 13:52 Reevaluation #2: removed packing ,no active bleeding 05/27/19 14:13 Disposition Clinical Impression: Epistaxis Condition: (1) Good Instructions: Nosebleed (ED) Additional Instructions: follow up with family Dr in one week vasoline in nose twice a day tylenol for pain Forms: Patient Portal Access Time of Disposition: 14:14 Quality - Quality Measures Quality Measures: N/A - Blood Pressure Screening Does Patient Have Any of the Following: No Blood Pressure Classification: Pre-Hypertensive BP Reading Systolic Measurement: 124 Diastolic Measurement: 83 Screening for High Blood Pressure: < Pre-Hypertensive BP, F/U Documented > [G8950] Pre-Hypertensive Follow-up Interventions: Referral to alternative/primary care provider.
== END 2019-05-27 14:30 | disposition home or self-care (01) ==
LOC: ER 12:34
DX: Z48.00 Encounter for change or removal of nonsurgical wound dressing (principal); R04.0 Epistaxis; F17.210 Nicotine dependence, cigarettes, uncomplicated
CPT/HCPCS: 99282

== ENCOUNTER 2019-07-29 20:12 | Observation (INO) | payer MEDICAID ==
[2019-07-29] MEDS ORDERED: IPRATROPIUM/ALBUTEROL (0.5MG/3MG) NEB INH ONE (20:19)
[2019-07-29] MEDS ORDERED: METHYLPREDNISOLONE PF 125MG/VIAL IVP ONE (20:19)
--- NOTE | 2019-07-29 20:30 | Emergency Department Record ---
History of Present Illness - General Chief Complaint: Shortness of breath Stated Complaint: KATHY/WAS IN THE HOSP LAST WEEK WITH DOUBLE PNEUMONI Time Seen by Provider: 07/29/19 20:15 Source: Patient Mode of Arrival: Ambulatory Limitations: No limitations - History of Present Illness Initial Comments: 34 yo female presents to ED for evaluation of difficulty in breathing symptoms that began last night, reports recent admission for pneumonia at [facility] 07/12[facility]06[facility]29o for "double pneumonia". Patient also reports history of COPD, has been using Albuterol at home without significant improvement. Patient denies fevers/chills but is concerned that her pneumonia may be back. Patient was treated with azithromaycin and prednisone following her discharge. Patient denies calf pain, swelling, or history of DV/PE. MD Complaint: Shortness of breath Onset/Timin -: Hour(s) Severity: Moderate Consistency: Constant Improves With: Nothing Worsens With: Coughing, Exertion Known History Of: COPD Context: Recent URI Treatments Prior to Arrival: Bronchodilator - Related Data Home Oxygen Therapy: No Home Medications Medication Instructions Recorded Confirmed Last Taken Albuterol Sulfate [Ventolin Hfa] 1 - 2 puff IH .EVERY 4-6 HOURS PRN 07/29/19 07/29/19 07/29/19 Allergies Allergy/AdvReac Type Severity Reaction Status Date / Time hydrocodone bitartrate Allergy Unknown pt states Verified 05/06/19 08:42 she passes out and vomits Travel Screening - Travel/Exposure Within Last 30 Days Have you traveled within the last 30 days?: No - Travel Symptoms Symptom Screening: None Review of Systems Constitutional: Denies: Chills, Fever, Malaise, Night sweats Eyes: Denies: Eye discharge, Eye pain ENT: Denies: Congestion, Ear pain, Epistaxis Respiratory: Reports: Cough, Dyspnea, Wheezes Cardiovascular: Reports: Dyspnea on exertion. Denies: Chest pain, Edema, Palpitations Endocrine: Denies: Fatigue, Heat or cold intolerance Gastrointestinal: Denies: Abdominal pain, Nausea, Vomiting Genitourinary: Denies: Incontinence, Retention Musculoskeletal: Denies: Arthralgia, Back pain, Gout, Joint swelling Skin: Denies: Bruising, Change in color Neurological: Denies: Abnormal gait, Confusion, Headache, Seizure Psychiatric: Denies: Anxiety Hematological/Lymphatic: Denies: Anemia, Blood Clots Past Medical History - SOCIAL HISTORY Smoking Status: Former smoker Alcohol Use: Occasional Drug Use: None - RESPIRATORY Hx Respiratory Disorders: Yes Hx COPD: Yes Hx Pneumonia: Yes Hx Sleep Apnea: Yes Hx of CPAP: Yes (sometimes) - CARDIOVASCULAR Hx Cardio Disorders: No Comment:: n/a - NEURO Hx Neuro Disorders: Yes Hx Headaches: Yes Hx of Migraines: Yes - GI Hx GI Disorders: Yes Hx Abdominal Pain: Yes Hx Reflux: Yes Hx Nausea/Vomiting: Yes Hx Rectal Bleeding: Yes - Hx Genitourinary Disorders: No Comment:: ovarian cyst-surgery scheduled for 08/2018 - ENDOCRINE Hx Endocrine Disorders: Yes Hx Diabetes: No Hx Thyroid Disease: Yes - MUSCULOSKELETAL Hx Musculoskeletal Disorders: Yes - PSYCH Hx Psych Problems: Yes Hx Anxiety: Yes Hx Behavior Problems: Yes Hx Depression: Yes - HEMATOLOGY/ONCOLOGY Hx Hematology/Oncology Disorders: No Family Medical History Any Significant Family History?: Yes Hx Cancer: Grandparents Hx Diabetes: Grandparents Hx Heart Disease: Grandparents *Heart Comment: heart failure Hx HTN: Father Hx Seizures: Grandparents Hx Stroke: Grandparents *Stroke Comment: grandmother Physical Exam - General General Appearance: Alert, Oriented x3, Cooperative, Moderate distress Limitations: No limitations - Head Head exam: Atraumatic, Normocephalic, Normal inspection Head exam detail: negative: Abrasion, Contusion, Lezama's sign, General tenderness, Hematoma, Laceration - Eye Eye exam: Normal appearance. negative: Conjunctival injection, Periorbital swelling, Periorbital tenderness, Scleral icterus - ENT Ear exam: negative: Auricular hematoma, Auricular trauma Nasal Exam: negative: Active bleeding, Discharge, Dried blood, Foreign body Mouth exam: negative: Drooling, Laceration, Muffled voice, Tongue elevation - Neck Neck exam: Normal inspection. negative: Meningismus, Tenderness - Respiratory Respiratory exam: Decreased breath sounds. negative: Rales, Respiratory distress, Rhonchi, Stridor, Wheezes - Cardiovascular Cardiovascular Exam: Normal rhythm, Normal heart sounds, Tachycardia - GI/Abdominal GI/Abdominal exam: Soft. negative: Rebound, Rigid, Tenderness - Rectal Rectal exam: Deferred - exam: Deferred - Extremities Extremities exam: Normal inspection. negative: Pedal edema, Tenderness - Back Back exam: Denies: CVA tenderness (R), CVA tenderness (L) - Neurological Neurological exam: Alert, Normal gait, Oriented X3 - Psychiatric Psychiatric exam: Normal affect, Normal mood - Skin Skin exam: Normal color. negative: Abrasion Type of lesion: negative: abrasion Course Vital Signs 07/29/19 20:19 Pulse Rate [ 115 H Left] Respiratory 20 Rate Blood Pressure 128/80 [Left] Pulse Ox 96 - Reevaluation(s) Reevaluation #1: 07/29/19 20:59 Laboratory studies were reviewed and appear grossly unremarkable for an acute process except for the following: CO2 17 AG 17 CXR: Atelectasis vs. infiltrate left lung base. On [id number], patient reports that she is still "unable to breathe". Pulse 100-105, Biox RA 90%. Will admit for probable COPD exacerbation and hypoxia. Patient is in agreement with the plan of care as discussed. Reevaluation #2: 07/30/19 06:44 Case was discussed with Valentina Low NP, will accept admission at this time. Medical Decision Making - Lab Data Result diagrams: 07/29/19 20:30 07/29/19 20:30 Disposition Disposition: Admit Clinical Impression: COPD exacerbation, Hypoxia Disposition: Still a Patient at [facility] Decision to Admit: Admit from ER Decision to Admit Date: 07/29/19 Decision to Admit Time: 21:07 Condition: (2) Stable Time of Disposition: 21:07 Quality - Quality Measures Quality Measures: N/A - Blood Pressure Screening Does Patient Have Any of the Following: No Blood Pressure Classification: Normal BP Reading Systolic Measurement: 111 Diastolic Measurement: 67 Screening for High Blood Pressure: < Normal BP, F/U Not Required > [G8783] Pre-Hypertensive Follow-up Interventions: Referral to alternative/primary care provider.
[2019-07-29 20:45] LABS: ABSOLUTE NEUTROPHIL COUNT 6.94; BASO % 0.3 % (0-6); EOS % 5.2 % (0-6); HEMATOCRIT 42.2 % (35.0-47.0); HEMOGLOBIN 14.1 gm/dl (11.6-16.0); MEAN CELL VOLUME 92.3 fl (81-97); MEAN CORPUSCULAR HEMOGLOBIN 30.9 pg (27-33); MEAN CORPUSCULAR HGB CONC 33.4 g/dl (32-36); MEAN PLATELET VOLUME 9.7 fl (7.4-10.4); MONO % 9.5 % (0-9); PLATELET COUNT 269 K/uL (130-400); RED BLOOD COUNT 4.57 M/uL (3.80-5.40); RED CELL DISTRIBUTION WIDTH 14.5 % (11.5-14.5)
[2019-07-29 20:56] LABS: BLOOD UREA NITROGEN 7 mg/dL (6-20); CREATININE 0.7 mg/dL (0.5-0.9); EST GLOMERULAR FILTRATION RATE > 60 mL/min; TOTAL PROTEIN 7.4 g/dL (6.6-8.7)
[2019-07-29 20:58] LABS: GLUCOSE,RANDOM 94 mg/dL (74-109)
[2019-07-29 21:01] LABS: ALB/GLOB RATIO 1.5 (1.1-1.8); ALBUMIN 4.4 g/dL (4.0-5.0); ALKALINE PHOSPHATASE 82 U/L (35-104); ALT/SGPT 51 U/L (<33); AST/SGOT 33 U/L (10.0-35.0)
[2019-07-29] MEDS ORDERED: ALBUTEROL SULFATE (0.083%) 2.5 MG/3 ML NEB INH PRN (22:23)
[2019-07-29] MEDS ORDERED: AZITHROMYCIN 500 MG in 0.9 % SODIUM CHLORIDE 250ML 250 ML IVPB SCH (22:23)
[2019-07-29] MEDS: 0.9 % SODIUM CHLORIDE 1000ML 1,000 ML IV PRN (22:59)
[2019-07-29] MEDS: IPRATROPIUM/ALBUTEROL (0.5MG/3MG) NEB INH SCH (23:15)
[2019-07-30] MEDS: IPRATROPIUM/ALBUTEROL (0.5MG/3MG) NEB INH SCH ×6 (03:15→21:37)
[2019-07-30] MEDS: LEVOTHYROXINE SODIUM 125 MCG TABLET PO SCH (06:11)
[2019-07-30] MEDS ORDERED: ACETAMINOPHEN 500 MG TABLET PO PRN (07:14)
[2019-07-30] MEDS: ACETAMINOPHEN 500 MG TABLET PO PRN (07:20)
[2019-07-30] MEDS: 0.9 % SODIUM CHLORIDE 1000ML 1,000 ML IV PRN ×2 (07:21→16:24)
[2019-07-30] MEDS ORDERED: METHYLPREDNISOLONE PF 125MG/VIAL IVP SCH (10:00)
[2019-07-30] MEDS: METHYLPREDNISOLONE PF 125MG/VIAL IVP SCH ×2 (11:52→19:31)
--- NOTE | 2019-07-30 13:06 | History & Physical ---
History of Present Illness - Date of Service Date of Service for History & Physical: 07/30/19 - History of Present Illness Admitting Diagnosis: COPD exacerbation. Hypoxia History of Present Illness: 07/29/19 Pt presented to [facility] ER for difficulty in breathing with recent 5 day inpt admission for kaelyn PNA at [facility]. Pt reports getting steroids and abx at d/c, finished them and then symptoms of KATHY and coughing returned. Pt was set up with pulmonology appt 08/16/19 and repeat PFT (prev at [facility] not available at this time). PMH former smoker quit 07/12/19 from 1/2ppd. Fam history of DM with mother and maternal grandparents, heart disease from paternal grandparents (both from heart disease). Temp 98.8, HR 115, BP 128/80m 96% RA but reports of labored breathing noted CXR LLL atelectasis vs PNA Pt given Duoneb tx, solumedrol 125mg IVP, and tylenol 500mg PO, NS IVF @100/hr started, azithromax 500mg IVPB given Admitted for PNA and COPD exacerbation with outpt tx failure WBC 11, Hgb 14.1, Hct 42.2, Plt 269 Na 138, K 4.0, Cl 104, COs 17, anion gap 17, BUN 7, Cr 0.7, GFR>60, AST 33, ALT 51 glucose 94 07/30/19 Pt resting in bed, CHAVEZ and remaining on supplemental O2 for symptom mgt. Pt has dry cough but no distress with coughing, lungs CTA, no wheezing noted. Pulses +2 DP/PT with no edema noted. Pt able to talk in full sentences. POC, continue ABX and steroids, wean off O2 and d/c after symptoms controlled. Pt already has appt with Pulm, was recently placed on ICS by PCP this week but nothing for COPD mgt previous to [facility] admission. Transition to PO abx and steroids tomorrow, continue neb tx and supplemental O2. ICS to be used 10x/hr. PCP [facility] Specialist pulm 08/16/19 appt Travel Screening - Travel/Exposure Within Last 30 Days Have you traveled within the last 30 days?: No - Travel/Exposure Within Last Year Have you traveled outside the [place] in the last year?: No - Additonal Travel Details Have you been exposed to anyone with a communicable illness?: No - Travel Symptoms Symptom Screening: None Review of Systems Constitutional: Denies: Chills, Fever, Malaise, Night sweats Eyes: Denies: Eye discharge, Eye pain ENT: Denies: Congestion, Ear pain, Epistaxis Respiratory: Reports: Cough, Dyspnea, Wheezes Cardiovascular: Reports: Dyspnea on exertion. Denies: Chest pain, Edema, Palpitations Endocrine: Denies: Fatigue, Heat or cold intolerance Gastrointestinal: Denies: Abdominal pain, Nausea, Vomiting Genitourinary: Denies: Incontinence, Retention Musculoskeletal: Denies: Arthralgia, Back pain, Gout, Joint swelling Skin: Denies: Bruising, Change in color Neurological: Denies: Abnormal gait, Confusion, Headache, Seizure Psychiatric: Denies: Anxiety Hematological/Lymphatic: Denies: Anemia, Blood Clots Past Medical History - SOCIAL HISTORY Smoking Status: Former smoker Alcohol Use: Occasional Drug Use: None - RESPIRATORY Hx Respiratory Disorders: Yes Hx COPD: Yes Hx Pneumonia: Yes Hx Sleep Apnea: Yes Hx of CPAP: Yes (sometimes) - CARDIOVASCULAR Hx Cardio Disorders: No Comment:: n/a - NEURO Hx Neuro Disorders: Yes Hx Headaches: Yes Hx of Migraines: Yes - GI Hx GI Disorders: Yes Hx Abdominal Pain: Yes Hx Reflux: Yes Hx Nausea/Vomiting: Yes Hx Rectal Bleeding: Yes - Hx Genitourinary Disorders: No Comment:: ovarian cyst-surgery scheduled for 08/2018 - ENDOCRINE Hx Endocrine Disorders: Yes Hx Diabetes: No Hx Thyroid Disease: Yes - MUSCULOSKELETAL Hx Musculoskeletal Disorders: Yes - PSYCH Hx Psych Problems: Yes Hx Anxiety: Yes Hx Behavior Problems: Yes Hx Depression: Yes - HEMATOLOGY/ONCOLOGY Hx Hematology/Oncology Disorders: No Family Medical History Any Significant Family History?: Yes Hx Cancer: Grandparents Hx Diabetes: Grandparents Hx Heart Disease: Grandparents *Heart Comment: heart failure Hx HTN: Father Hx Seizures: Grandparents Hx Stroke: Grandparents *Stroke Comment: grandmother H&P Meds/Allergies - Allergies Allergies: Allergies Allergy/AdvReac Type Severity Reaction Status Date / Time hydrocodone bitartrate Allergy Unknown pt states Verified 05/06/19 08:42 she passes out and vomits - Home Medications Home Medications Medication Instructions Recorded Confirmed Last Taken Albuterol Sulfate [Ventolin Hfa] 1 - 2 puff IH .EVERY 4-6 HOURS PRN 07/29/19 07/29/19 07/29/19 - Active Medications Active Medications: Current Medications Acetaminophen (Tylenol 500mg Tab) 1,000 mg PO Q8H PRN PRN Reason: PAIN - MILD TO MODERATE (1-7) Last Admin: 07/30/19 07:20 Dose: 1,000 mg Documented by: Albuterol Sulfate (Albuterol Sulfate) 2.5 mg INH RESP.Q2H PRN PRN Reason: DIFFICULTY IN BREATHING Albuterol/Ipratropium (Duoneb) 3 ml INH RESP.Q4H YANIRA Last Admin: 07/30/19 10:16 Dose: 3 ml Documented by: Benzonatate (Tessalon) 100 mg PO TID PRN PRN Reason: COUGH Guaifenesin (Robitussin Dm) 10 ml PO Q4H PRN PRN Reason: COUGH Sodium Chloride () 1,000 mls @ 100 mls/hr IV .Q10H PRN PRN Reason: LARGE VOLUME IV Last Admin: 07/30/19 07:21 Dose: 100 mls/hr Documented by: Azithromycin 500 mg/ Sodium (Chloride) 250 mls @ 250 mls/hr IVPB Q24H [facility] Stop: 08/04/19 22:01 Levothyroxine Sodium (Synthroid) 300 mcg PO DAILYTHY [facility] Last Admin: 07/30/19 06:11 Dose: 300 mcg Documented by: Methylprednisolone Sodium Succinate (Solu-Medrol) 60 mg IVP Q8H [facility] Last Admin: 07/30/19 11:52 Dose: Not Given Documented by: Physical Exam - Vital Signs Vital Signs: Vital Signs - Last 24 Hrs Temp Pulse Pulse Pulse Resp BP Pulse Ox 07/30/19 10:21 106 H 20 90 L 07/30/19 10:18 104 H 20 96 07/30/19 07:47 24 07/30/19 07:15 97.4 F L 106 H 16 111/63 96 07/30/19 05:52 97.8 F 98 H 16 111/67 90 L 07/30/19 05:38 106 H 24 90 L 07/29/19 23:15 98 H 20 88 L 07/29/19 21:55 98.8 F 105 H 20 114/81 98 07/29/19 21:45 105 H 20 127/83 93 L 07/29/19 21:02 98 H 20 126/86 94 L 07/29/19 20:20 107 H 24 88 L 07/29/19 20:19 115 H 20 128/80 96 - General General Appearance: Alert, Oriented x3, Cooperative, Moderate distress Limitations: No limitations - Head Head exam: Atraumatic, Normocephalic, Normal inspection Head exam detail: negative: Abrasion, Contusion, Lezama's sign, General tenderness, Hematoma, Laceration - Eye Eye exam: Normal appearance. negative: Conjunctival injection, Periorbital swelling, Periorbital tenderness, Scleral icterus - ENT Ear exam: negative: Auricular hematoma, Auricular trauma Nasal Exam: negative: Active bleeding, Discharge, Dried blood, Foreign body Mouth exam: negative: Drooling, Laceration, Muffled voice, Tongue elevation - Neck Neck exam: Normal inspection. negative: Meningismus, Tenderness - Respiratory Respiratory exam: Decreased breath sounds. negative: Rales, Respiratory distress, Rhonchi, Stridor, Wheezes - Cardiovascular Cardiovascular Exam: Normal rhythm, Normal heart sounds, Tachycardia - GI/Abdominal GI/Abdominal exam: Soft. negative: Rebound, Rigid, Tenderness - Rectal Rectal exam: Deferred - exam: Deferred - Extremities Extremities exam: Normal inspection. negative: Pedal edema, Tenderness - Back Back exam: Denies: CVA tenderness (R), CVA tenderness (L) - Neurological Neurological exam: Alert, Normal gait, Oriented X3 - Psychiatric Psychiatric exam: Normal affect, Normal mood - Skin Skin exam: Normal color. negative: Abrasion Type of lesion: negative: abrasion Results - Labs Result Diagrams: 07/29/19 20:30 07/29/19 20:30 Labs Last 24 Hours: Laboratory Results - last 24 hr 07/29/19 07/29/19 20:30 20:30 WBC 11.0 RBC 4.57 Hgb 14.1 Hct 42.2 MCV 92.3 MCH 30.9 MCHC 33.4 RDW 14.5 Plt Count 269 MPV 9.7 Gran % 63.0 Lymphocytes % 22.0 Monocytes % 9.5 H Eosinophils % 5.2 Basophils % 0.3 Absolute Neutrophils 6.94 Sodium 138 Potassium 4.0 Chloride 104 Carbon Dioxide 17.0 L Anion Gap 17.0 H BUN 7 Creatinine 0.7 Estimated GFR > 60 Random Glucose 94 Calcium 9.6 Total Bilirubin 1.10 H AST 33 ALT 51 H Alkaline Phosphatase 82 Total Protein 7.4 Albumin 4.4 Globulin 3.0 Albumin/Globulin Ratio 1.5 - Imaging and Cardiology Chest x-ray Status: Pending (audio clip reviewed) VTE H&P Assessment - Risk for VTE Risk for VTE: Yes Risk Level: Moderate Risk Assessment Date: 07/30/19 Risk Assessment Time: 13:08 VTE Orders Placed or Will Be Placed: Yes Plan - Detailed Diagnosis and Plan (1) COPD exacerbation Current Visit: Yes Status: Acute Base Code: J44.1 - CHRONIC OBSTRUCTIVE PULMONARY DISEASE W (ACUTE) EXACERBATION Comment: 07/30/19 -cont neb tx, solumedrol 60mg IVP, supplemental O2, abx -CBC wnl, added procalcitonin from prev labs and repeat in the AM -ICS ordered (2) Cough in adult Current Visit: No Status: Acute Base Code: R05 - COUGH Comment: 07/30/19 -dry, non productive cough noted, robutussin and tessalon ordered for comfort -continue fluids, steroids, abx, neb tx (3) DVT prophylaxis Current Visit: No Status: Acute Base Code: [id number] - Comment: 07/30/19 -mod risk as pt was former smoker, recent 1 week inpt hospitalization and bounce back with decreased activity r/t CHAVEZ -lovenox 40mg SQ daily
[2019-07-30] MEDS: GUAIFENESIN/D-METH. 10 ML UDC PO PRN (18:26)
[2019-07-30] MEDS: BENZONATATE 100 MG CAPSULE PO PRN (21:26)
[2019-07-30] MEDS: AZITHROMYCIN 500 MG in 0.9 % SODIUM CHLORIDE 250ML 250 ML IVPB SCH (21:27)
[2019-07-31] MEDS: IPRATROPIUM/ALBUTEROL (0.5MG/3MG) NEB INH SCH ×6 (03:38→21:29)
[2019-07-31] MEDS: METHYLPREDNISOLONE PF 125MG/VIAL IVP SCH ×3 (03:51→18:14)
--- NOTE | 2019-07-31 05:49 | RADIOLOGY REPORT ---
EXAM: CHEST, TWO VIEWS HISTORY: DIFFICULTY BREATHING. WORSENING SYMPTOMS. RECENT PNEUMONIA. TECHNIQUE: PA and lateral upright views of the chest were obtained. Comparison: 06/25/19. FINDINGS: The heart, mediastinum, and pulmonary vasculature are normal. There is very mild atelectasis or infiltrate at the left lung base. The lungs are otherwise clear. There is no pneumothorax or effusion. The bones appear intact. IMPRESSION: MILD ATELECTASIS OR INFILTRATE AT THE LEFT LUNG BASE. JOB NUMBER: [id number] [facility]
[2019-07-31] MEDS: LEVOTHYROXINE SODIUM 125 MCG TABLET PO SCH (06:09)
[2019-07-31 06:35] LABS: ABSOLUTE NEUTROPHIL COUNT 16.44; HEMOGLOBIN 11.7 gm/dl (11.6-16.0); MEAN CELL VOLUME 95.6 fl (81-97); MEAN CORPUSCULAR HEMOGLOBIN 30.2 pg (27-33); MEAN CORPUSCULAR HGB CONC 31.6 g/dl (32-36); MEAN PLATELET VOLUME 9.6 fl (7.4-10.4); PLATELET COUNT 309 K/uL (130-400); RED BLOOD COUNT 3.87 M/uL (3.80-5.40); RED CELL DISTRIBUTION WIDTH 14.4 % (11.5-14.5); WHITE BLOOD COUNT W/O DIFF 19.6 K/uL (4.2-12.2)
[2019-07-31 06:55] LABS: ALB/GLOB RATIO 1.7 (1.1-1.8); ALBUMIN 3.9 g/dL (4.0-5.0); ALT/SGPT 32 U/L (<33); AST/SGOT 13 U/L (10.0-35.0); BLOOD UREA NITROGEN 8 mg/dL (6-20); CREATININE 0.6 mg/dL (0.5-0.9); EST GLOMERULAR FILTRATION RATE > 60 mL/min; GLUCOSE,RANDOM 149 mg/dL (74-109); TOTAL PROTEIN 6.2 g/dL (6.6-8.7)
[2019-07-31 07:02] LABS: THYROID STIMULATING HORMONE 12.05 uIU/mL (0.270-4.20)
[2019-07-31 07:13] LABS: PLATELET ESTIMATE NORMAL (NORMAL)
[2019-07-31 07:14] LABS: ANISOCYTOSIS 1+; TOXIC GRANULATION 1+
[2019-07-31] MEDS: ACETAMINOPHEN 500 MG TABLET PO PRN (08:34)
[2019-07-31] MEDS: BENZONATATE 100 MG CAPSULE PO PRN (08:34)
[2019-07-31] MEDS ORDERED: KETOROLAC 30 MG/ML VIAL IVP ONE (09:20)
[2019-07-31] MEDS ORDERED: DIPHENHYDRAMINE HCL 50 MG/ML VIAL IVP ONE (09:20)
[2019-07-31] MEDS ORDERED: ENOXAPARIN 40 MG/0.4 ML SYR SQ SCH (10:00)
--- NOTE | 2019-07-31 10:36 | Physician Progress Note ---
Subjective - Date Date of Physician Progress Note: 08/01/19 - Subjective Subjective Comment: 07/31/19 Pt resting in bed, still reporting sensation of difficulty breathing, constant dry cough, and weakness -pt appears pale, reports migraine currently Objective - Vital Signs Vital Signs: Vital Signs - Last 24 Hrs Temp Pulse Pulse Resp BP Pulse Ox 07/31/19 09:00 18 07/31/19 08:00 97.5 F L 101 H 18 100/60 98 07/31/19 06:04 101 H 20 96 07/30/19 21:41 98.1 F 108 H 18 98/57 95 07/30/19 21:37 111 H 20 93 L 07/30/19 21:00 22 07/30/19 18:03 117 H 18 99 07/30/19 15:52 97.4 F L 116 H 19 105/45 95 07/30/19 14:00 115 H 20 99 - General General Appearance: Alert, Oriented x3, Cooperative, Mild distress Limitations: No limitations - Head Head exam: Atraumatic, Normocephalic, Normal inspection Head exam detail: negative: Abrasion, Contusion, Lezama's sign, General tenderness, Hematoma, Laceration - Eye Eye exam: Normal appearance. negative: Conjunctival injection, Periorbital swelling, Periorbital tenderness, Scleral icterus - ENT Ear exam: negative: Auricular hematoma, Auricular trauma Nasal Exam: negative: Active bleeding, Discharge, Dried blood, Foreign body Mouth exam: negative: Drooling, Laceration, Muffled voice, Tongue elevation - Neck Neck exam: Normal inspection. negative: Meningismus, Tenderness - Respiratory Respiratory exam: Decreased breath sounds. negative: Rales, Respiratory distress, Rhonchi, Stridor, Wheezes - Cardiovascular Cardiovascular Exam: Regular rate, Normal rhythm, Normal heart sounds Peripheral Pulses: 3+: Radial (R), Radial (L), Dorsalis Pedis (R), Dorsalis Pedi s (L) - GI/Abdominal GI/Abdominal exam: Soft. negative: Rebound, Rigid, Tenderness - Rectal Rectal exam: Deferred - exam: Deferred - Extremities Extremities exam: Normal inspection. negative: Pedal edema, Tenderness - Back Back exam: Denies: CVA tenderness (R), CVA tenderness (L) - Neurological Neurological exam: Alert, Normal gait, Oriented X3 - Psychiatric Psychiatric exam: Normal affect, Normal mood - Skin Skin exam: Normal color. negative: Abrasion Type of lesion: negative: abrasion Assessment and Plan - Assessment and Plan (1) COPD exacerbation Current Visit: Yes Status: Acute Base Code: J44.1 - CHRONIC OBSTRUCTIVE PULMONARY DISEASE W (ACUTE) EXACERBATION Comment: 07/31/19 -repeat CXR -WBC elevated to 20, SIRS vs infection but pt continues zithromax -procalcitonin decreasing -continue steroids and neb tx -pt off supplemental O2, sats 94% 07/30/19 -cont neb tx, solumedrol 60mg IVP, supplemental O2, abx -CBC wnl, added procalcitonin from prev labs and repeat in the AM -ICS ordered (2) Cough in adult Current Visit: No Status: Acute Base Code: R05 - COUGH Comment: 07/31/19 -pt reports tessalon perles helpful in suppressing cough 07/30/19 -dry, non productive cough noted, robutussin and tessalon ordered for comfort -continue fluids, steroids, abx, neb tx (3) DVT prophylaxis Current Visit: No Status: Acute Base Code: [id number] - Comment: 07/31/19 -mod risk as pt was former smoker, recent 1 week inpt hospitalization and bounce back with decreased activity r/t CHAVEZ -lovenox 40mg SQ daily Results - Labs Result Diagrams: 07/31/19 06:30 07/31/19 06:30 Labs Last 24 Hours: Laboratory Results - last 24 hr 07/30/19 07/31/19 07/31/19 13:07 06:30 06:30 WBC 19.6 H RBC 3.87 Hgb 11.7 Hct 37.0 MCV 95.6 MCH 30.2 MCHC 31.6 L RDW 14.4 Plt Count 309 MPV 9.6 Neutrophils % 76.0 Band Neutrophils % 5.0 Eosinophils % Not Reportable Basophils % Not Reportable Absolute Neutrophils 16.44 Lymphocytes 9.0 L Monocytes 9.0 Metamyelocytes 1.0 Toxic Granulation 1+ Platelet Estimate Normal Anisocytosis 1+ Sodium 143 Potassium 4.5 Chloride 112 H Carbon Dioxide 19.0 L Anion Gap 12.0 BUN 8 Creatinine 0.6 Estimated GFR > 60 Random Glucose 149 H Calcium 9.0 Total Bilirubin 0.30 AST 13 ALT 32 Total Protein 6.2 L Albumin 3.9 L Globulin 2.3 Albumin/Globulin Ratio 1.7 Procalcitonin 0.077 TSH 12.05 H 07/31/19 06:30 WBC RBC Hgb Hct MCV MCH MCHC RDW Plt Count MPV Neutrophils % Band Neutrophils % Eosinophils % Basophils % Absolute Neutrophils Lymphocytes Monocytes Metamyelocytes Toxic Granulation Platelet Estimate Anisocytosis Sodium Potassium Chloride Carbon Dioxide Anion Gap BUN Creatinine Estimated GFR Random Glucose Calcium Total Bilirubin AST ALT Total Protein Albumin Globulin Albumin/Globulin Ratio Procalcitonin 0.052 TSH DVT/PE Assessment - Risk for VTE Risk for VTE: No Risk Level: Moderate Risk Assessment Date: 07/30/19 Risk Assessment Time: 13:08 VTE Orders Placed or Will Be Placed: Yes - Active Medicaitons Current Medications: Current Medications Acetaminophen (Tylenol 500mg Tab) 1,000 mg PO Q8H PRN PRN Reason: PAIN - MILD TO MODERATE (1-7) Last Admin: 07/31/19 08:34 Dose: 1,000 mg Documented by: Albuterol Sulfate (Albuterol Sulfate) 2.5 mg INH RESP.Q2H PRN PRN Reason: DIFFICULTY IN BREATHING Albuterol/Ipratropium (Duoneb) 3 ml INH RESP.Q4H [facility] [place] Last Admin: 07/31/19 10:28 Dose: 3 ml Documented by: Benzonatate (Tessalon) 100 mg PO TID PRN PRN Reason: COUGH Last Admin: 07/31/19 08:34 Dose: 100 mg Documented by: Enoxaparin Sodium (Lovenox) 40 mg SQ DAILY [facility] [place] Last Admin: 07/31/19 09:54 Dose: 40 mg Documented by: Guaifenesin (Robitussin Dm) 10 ml PO Q4H PRN PRN Reason: COUGH Last Admin: 07/30/19 18:26 Dose: 10 ml Documented by: Sodium Chloride () 1,000 mls @ 100 mls/hr IV .Q10H PRN PRN Reason: LARGE VOLUME IV Last Admin: 07/30/19 16:24 Dose: 100 mls/hr Documented by: Azithromycin 500 mg/ Sodium (Chloride) 250 mls @ 250 mls/hr IVPB Q24H YANIRA Stop: 08/04/19 22:01 Last Infusion: 07/31/19 03:51 Dose: Infused Documented by: Levothyroxine Sodium (Synthroid) 300 mcg PO DAILYTHY YANIRA Methylprednisolone Sodium Succinate (Solu-Medrol) 60 mg IVP Q8H YANIRA Last Admin: 07/31/19 10:00 Dose: 60 mg Documented by: LIZ Plan - Labs Result Diagrams: 07/31/19 06:30 07/31/19 06:30
[2019-07-31] MEDS ORDERED: SUMATRIPTAN 6 MG/0.5 ML VIAL SQ ONE (14:07)
[2019-07-31] MEDS: 0.9 % SODIUM CHLORIDE 1000ML 1,000 ML IV PRN (14:18)
[2019-07-31 17:50] LABS: ALKALINE PHOSPHATASE 68 U/L (35-104)
[2019-07-31] MEDS: GUAIFENESIN/D-METH. 10 ML UDC PO PRN (19:12)
[2019-07-31] MEDS ORDERED: CYCLOBENZAPRINE 10MG TABLET PO ONE (21:14)
[2019-07-31] MEDS: AZITHROMYCIN 500 MG in 0.9 % SODIUM CHLORIDE 250ML 250 ML IVPB SCH (21:19)
[2019-08-01] MEDS: IPRATROPIUM/ALBUTEROL (0.5MG/3MG) NEB INH SCH ×3 (02:29→10:06)
[2019-08-01] MEDS: METHYLPREDNISOLONE PF 125MG/VIAL IVP SCH (02:31)
[2019-08-01] MEDS: ACETAMINOPHEN 500 MG TABLET PO PRN (05:59)
[2019-08-01] MEDS ORDERED: LEVOTHYROXINE SODIUM 150 MCG TABLET PO SCH (07:00)
--- NOTE | 2019-08-01 08:19 | Discharge Summary ---
Providers Discharge Summary Date: 08/01/19 Date of admission: 07/29/19 21:42 Expected Date of Discharge: 08/01/19 Attending physician: RADHA KOTHARI Primary care physician: MITA CHACKO Physical Exam - Vital Signs Vital Signs: Vital Signs - Last 24 Hrs Temp Pulse Pulse Resp BP Pulse Ox 08/01/19 08:00 97.5 F L 95 H 18 125/71 96 08/01/19 05:50 90 20 95 07/31/19 21:32 98.2 F 102 H 18 107/66 99 07/31/19 21:29 108 H 20 99 07/31/19 21:00 18 07/31/19 18:09 95 H 18 99 07/31/19 16:00 97.5 F L 104 H 18 130/70 100 07/31/19 14:42 100 H 18 96 07/31/19 12:40 114 H 96 07/31/19 10:29 111 H 18 98 07/31/19 09:00 18 - General General Appearance: Alert, Oriented x3, Cooperative, No acute distress Limitations: No limitations - Head Head exam: Atraumatic, Normocephalic, Normal inspection Head exam detail: negative: Abrasion, Contusion, Lezama's sign, General tenderness, Hematoma, Laceration - Eye Eye exam: Normal appearance. negative: Conjunctival injection, Periorbital swelling, Periorbital tenderness, Scleral icterus - ENT Ear exam: negative: Auricular hematoma, Auricular trauma Nasal Exam: negative: Active bleeding, Discharge, Dried blood, Foreign body Mouth exam: negative: Drooling, Laceration, Muffled voice, Tongue elevation - Neck Neck exam: Normal inspection. negative: Meningismus, Tenderness - Respiratory Respiratory exam: Normal lung sounds bilaterally. negative: Rales, Respiratory distress, Rhonchi, Stridor, Wheezes - Cardiovascular Cardiovascular Exam: Regular rate, Normal rhythm, Normal heart sounds Peripheral Pulses: 3+: Radial (R), Radial (L), Dorsalis Pedis (R), Dorsalis Pedis (L) - GI/Abdominal GI/Abdominal exam: Soft. negative: Rebound, Rigid, Tenderness - Rectal Rectal exam: Deferred - exam: Deferred - Extremities Extremities exam: Normal inspection. negative: Pedal edema, Tenderness - Back Back exam: Denies: CVA tenderness (R), CVA tenderness (L) - Neurological Neurological exam: Alert, Normal gait, Oriented X3 - Psychiatric Psychiatric exam: Normal affect, Normal mood - Skin Skin exam: Normal color. negative: Abrasion Type of lesion: negative: abrasion Hospitalization - Hospitalization Admission Diagnosis: COPD exacerbation. Hypoxia - Problem List/Discharge Diagnosis (1) COPD exacerbation Current Visit: Yes Status: Acute Base Code: J44.1 - CHRONIC OBSTRUCTIVE PULMONARY DISEASE W (ACUTE) EXACERBATION Comment: 08/01/19 -CXR shows PNA clearing -pt reports decreased symptoms and desire to go home -return to ICS/LABA bid, f/u with PCP and has an appt with pulm 08/16/19 07/31/19 -repeat CXR -WBC elevated to 20, SIRS vs infection but pt continues zithromax -procalcitonin decreasing -continue steroids and neb tx -pt off supplemental O2, sats 94% 07/30/19 -cont neb tx, solumedrol 60mg IVP, supplemental O2, abx -CBC wnl, added procalcitonin from prev labs and repeat in the AM -ICS ordered (2) Cough in adult Current Visit: No Status: Acute Base Code: R05 - COUGH Comment: 08/01/19 -cough decreased with tessalon perles, can d/c with 1 week worth 07/31/19 -pt reports tessalon perles helpful in suppressing cough 07/30/19 -dry, non productive cough noted, robutussin and tessalon ordered for comfort -continue fluids, steroids, abx, neb tx (3) DVT prophylaxis Current Visit: No Status: Acute Base Code: [id number] - Comment: 08/01/19 -mod risk as pt was former smoker, recent 1 week inpt hospitalization and bounce back with decreased activity r/t CHAVEZ -lovenox 40mg SQ daily - Hospitalization Course Disposition: Home, Self-Care Hospital Course: 07/29/19 Pt presented to [facility] ER for difficulty in breathing with recent 5 day inpt admission for kaelyn PNA at [facility]. Pt reports getting steroids and abx at d/c, finished them and then symptoms of KATHY and coughing returned. Pt was set up with pulmonology appt 08/16/19 and repeat PFT (prev at [facility] not available at this time). PMH former smoker quit 07/12/19 from 1/2ppd. Fam history of DM with mother and maternal grandparents, heart disease from paternal grandparents (both from heart disease). Temp 98.8, HR 115, BP 128/80m 96% RA but reports of labored breathing noted CXR LLL atelectasis vs PNA Pt given Duoneb tx, solumedrol 125mg IVP, and tylenol 500mg PO, NS IVF @100/hr started, azithromax 500mg IVPB given Admitted for PNA and COPD exacerbation with outpt tx failure WBC 11, Hgb 14.1, Hct 42.2, Plt 269 Na 138, K 4.0, Cl 104, COs 17, anion gap 17, BUN 7, Cr 0.7, GFR>60, AST 33, ALT 51 glucose 94 07/30/19 Pt resting in bed, CHAVEZ and remaining on supplemental O2 for symptom mgt. Pt has dry cough but no distress with coughing, lungs CTA, no wheezing noted. Pulses +2 DP/PT with no edema noted. Pt able to talk in full sentences. POC, continue ABX and steroids, wean off O2 and d/c after symptoms controlled. Pt already has appt with Pulm, was recently placed on ICS by PCP this week but nothing for COPD mgt previous to [facility] admission. Transition to PO abx and steroids tomorrow, continue neb tx and supplemental O2. ICS to be used 10x/hr. PCP [facility] pulm 08/16/19 appt Procedures: Imaging and X-Rays 07/29/19 20:19 CHEST 2 VIEWS [RAD] Stat 07/31/19 10:22 CHEST 2 VIEWS [RAD] Stat Abnormal Labs: Abnormal Lab Results 07/29/19 07/29/19 07/31/19 Range/Units 20:30 20:30 06:30 WBC 19.6 H (4.2-12.2) K/uL MCHC 31.6 L (32-36) g/dl Monocytes % 9.5 H (0-9) % Lymphocytes 9.0 L (16-45) % Chloride (98-107) mmol/L Carbon Dioxide 17.0 L (22-29) mmol/L Anion Gap 17.0 H (7-16) Random Glucose (74-109) mg/dL Total Bilirubin 1.10 H (0.2-1.0) mg/dL ALT 51 H (<33) U/L Total Protein (6.6-8.7) g/dL Albumin (4.0-5.0) g/dL TSH (0.270-4.20) uIU/mL 07/31/19 Range/Units 06:30 WBC (4.2-12.2) K/uL MCHC (32-36) g/dl Monocytes % (0-9) % Lymphocytes (16-45) % Chloride 112 H (98-107) mmol/L Carbon Dioxide 19.0 L (22-29) mmol/L Anion Gap (7-16) Random Glucose 149 H (74-109) mg/dL Total Bilirubin (0.2-1.0) mg/dL ALT (<33) U/L Total Protein 6.2 L (6.6-8.7) g/dL Albumin 3.9 L (4.0-5.0) g/dL TSH 12.05 H (0.270-4.20) uIU/mL Condition at Discharge: (2) Stable Discharge Medications - Discharge Medications Prescriptions: Benzonatate [Tessalon Perles] 100 mg PO TID PRN 10 Days #30 capsule PRN Reason: Cough Home Medications: Ambulatory Orders Levothyroxine Sodium [Synthroid] 300 mcg PO DAILY 02/06/16 [Last Taken 07/29/19] Albuterol Sulfate [Ventolin Hfa] 1 - 2 puff IH .EVERY 4-6 HOURS PRN 07/29/19 [Last Taken 07/29/19] Acetaminophen [Tylenol 500Mg Tab] 1,000 mg PO Q8H PRN tablet 08/01/19 [Last Taken Unknown] Benzonatate [Tessalon Perles] 100 mg PO TID PRN 10 Days #30 capsule 08/01/19 [Last Taken Unknown] Discharge Plan - Discharge Instructions Activity at Discharge: Increase Activity as Tolerated Diet at Discharge: Regular Diet Additional Instructions: Your labs have improved, continue to use your inhalers as needed for shortness of breath. Keep you pulmonary appt 08/16/19. Your chest xray shows clearing of pneumonia. You are insisting on returning to work today, only work 1/2 day as your are still recovering from illness. GO TO ER for chest pain, difficulty breathing that does not resolve with inhaler use, swelling of the hands or feet, fever/chills. Quality Measures - Quality Measures Quality Measures: Documentation of Current Medications in Medical Record, Screening for High Blood Pressure and F/U Documented - Current Medications Quality Measure: Measure #130: Documentation of Current Medications Documentation of Current Medications: <Current Medications Documented/Reviewed> [G8427] - Blood Pressure Screening Quality Measure: Screening for High Blood Pressure and Follow-Up Documented Does Patient Have Any of the Following: No Blood Pressure Classification: Pre-Hypertensive BP Reading Systolic Measurement: 125 Diastolic Measurement: 71 Screening for High Blood Pressure: < Pre-Hypertensive BP, F/U Documented > [G8950] Pre-Hypertensive Follow-up Interventions: Referral to alternative/primary care provider. - Elder Abuse Suspicion Index EASI Reference Information: Christine WALDEN, Nica C, Kayce D, Cynthia Martin.Development and validation of a tool to assist physicians identification of elder abuse: The Elder Abuse Suspicion Index (EASI ). Journal of Elder Abuse and Neglect, 2008; 20 (3): 276-300.
--- NOTE | 2019-08-01 08:23 | RADIOLOGY REPORT ---
EXAM: CHEST, TWO VIEWS HISTORY: COUGH FOR ONE MONTH. TECHNIQUE: Upright PA and lateral views of the chest were obtained. Comparison: Two view chest radiographic examination dated 07/29/19. FINDINGS: The cardiomediastinal silhouette is normal in size and configuration. The pulmonary vasculature is nondilated. There has been interval clearing of minor atelectasis/infiltrate from the left lung base. The lungs now appear clear. No acute osseous abnormality. IMPRESSION: INTERVAL CLEARING OF MINOR ATELECTASIS/INFILTRATE FROM THE LEFT LUNG BASE. NO EVIDENCE OF ACUTE CARDIOPULMONARY DISEASE. JOB NUMBER: [id number] [facility]
[2019-08-01] MEDS ORDERED: PNEUM 23-VAL ADULT IM ONE (08:51)
[2019-08-01 09:00] LABS: HEMATOCRIT 36.9 % (35.0-47.0); HEMOGLOBIN 11.4 gm/dl (11.6-16.0); MEAN CELL VOLUME 97.6 fl (81-97); MEAN CORPUSCULAR HGB CONC 30.9 g/dl (32-36); MEAN PLATELET VOLUME 9.7 fl (7.4-10.4); PLATELET COUNT 317 K/uL (130-400); RED BLOOD COUNT 3.78 M/uL (3.80-5.40); RED CELL DISTRIBUTION WIDTH 14.8 % (11.5-14.5); WHITE BLOOD COUNT W/O DIFF 16.4 K/uL (4.2-12.2)
[2019-08-01 09:18] LABS: MEAN CORPUSCULAR HEMOGLOBIN 30.1 pg (27-33)
[2019-08-01] MEDS ORDERED: BREO (FLUTICASONE/VILANTEROL) 100MCG/25MCG INHALER INH SCH (10:00)
== END 2019-08-01 10:20 | disposition home or self-care (01) ==
LOC: ER 20:12 → UNDOADMOB 21:42 → MEDSURG 21:42
PROVIDERS: ADMIT Internal Medicine; ATTEND Internal Medicine
DX: J44.1 Chronic obstructive pulmonary disease with (acute) exacerbation (principal); R09.02 Hypoxemia; R05 Cough; E03.9 Hypothyroidism, unspecified; K21.9 Gastro-esophageal reflux disease without esophagitis; G47.33 Obstructive sleep apnea (adult) (pediatric); Z87.891 Personal history of nicotine dependence
CPT/HCPCS: 71046; 80053; 84145; 84443; 85025; 85027; 94010; 94640; 94760; 94761; 96374; 99217; 99220; 99285; J0456; J1200; J1650; J1885; J2930; J3030; J7050

== ENCOUNTER 2019-09-18 23:42 | Emergency (ER) | payer MEDICAID ==
--- NOTE | 2019-09-18 23:54 | Emergency Department Record ---
History of Present Illness - General Chief complaint: Lower Extremity Pain Stated complaint: RIGHT FOOT PAIN/INJURY X 1 WEEK AGO Time Seen by Provider: 09/18/19 23:43 Source: Patient Mode of Arrival: Ambulatory Limitations: No limitations - History of Present Illness Initial comments: 34 yo female presents to ED for evaluation of pain to the right foot following injury 1 week ago. Patient reports that she was "showing my kids how to kick" when she struck a wall with her foot. Patient reports pain with weight bearing but has been walking without difficulty. Patient has been taking Ibuprofen, using ice as needed without improvement. Patient denies health problems at her baseline. MD Complaint: Extremity pain, Extremity swelling Onset/Timin -: Week(s) Location: Right, Foot -: Yes Arthralgia Radiation: Distal Quality: Aching Consistency: Constant Improves with: Elevation Worsens with: Walking, Weight bearing Associated Symptoms: Denies other symptoms - Related Data Allergies Allergy/AdvReac Type Severity Reaction Status Date / Time hydrocodone bitartrate Allergy Unknown pt states Verified 05/06/19 08:42 she passes out and vomits Review of Systems Constitutional: Denies: Chills, Fever, Malaise, Night sweats Eyes: Denies: Eye discharge, Eye pain ENT: Denies: Congestion, Ear pain, Epistaxis Respiratory: Denies: Cough, Dyspnea Cardiovascular: Denies: Chest pain, Dyspnea on exertion Endocrine: Denies: Fatigue, Heat or cold intolerance Gastrointestinal: Denies: Abdominal pain, Nausea, Vomiting Genitourinary: Denies: Incontinence, Retention Musculoskeletal: Reports: Arthralgia. Denies: Back pain, Gout, Joint swelling Skin: Reports: Bruising. Denies: Change in color Neurological: Denies: Abnormal gait, Confusion, Headache, Seizure Psychiatric: Denies: Anxiety Hematological/Lymphatic: Denies: Anemia, Blood Clots Past Medical History - SOCIAL HISTORY Smoking Status: Former smoker Drug Use: None - RESPIRATORY Hx Respiratory Disorders: Yes Hx COPD: Yes Hx Pneumonia: Yes Hx Sleep Apnea: Yes Hx of CPAP: Yes (sometimes) - CARDIOVASCULAR Hx Cardio Disorders: No Comment:: n/a - NEURO Hx Neuro Disorders: Yes Hx Headaches: Yes Hx of Migraines: Yes - GI Hx GI Disorders: Yes Hx Abdominal Pain: Yes Hx Reflux: Yes Hx Nausea/Vomiting: Yes Hx Rectal Bleeding: Yes - Hx Genitourinary Disorders: No Comment:: ovarian cyst-surgery scheduled for 08/2018 - ENDOCRINE Hx Endocrine Disorders: Yes Hx Diabetes: No Hx Thyroid Disease: Yes - MUSCULOSKELETAL Hx Musculoskeletal Disorders: Yes - PSYCH Hx Psych Problems: Yes Hx Anxiety: Yes Hx Behavior Problems: Yes Hx Depression: Yes - HEMATOLOGY/ONCOLOGY Hx Hematology/Oncology Disorders: No Family Medical History Hx Cancer: Grandparents Hx Diabetes: Grandparents Hx Heart Disease: Grandparents *Heart Comment: heart failure Hx HTN: Father Hx Seizures: Grandparents Hx Stroke: Grandparents *Stroke Comment: grandmother Physical Exam - General General Appearance: Alert, Oriented x3, Cooperative, No acute distress, Other (Ambulates with normal weight bearing, steady gait.) Limitations: No limitations - Head Head exam: Atraumatic, Normocephalic, Normal inspection Head exam detail: negative: Abrasion, Contusion, Lezama's sign, General tenderness, Hematoma, Laceration - Eye Eye exam: Normal appearance. negative: Conjunctival injection, Periorbital swelling, Periorbital tenderness, Scleral icterus - ENT Ear exam: negative: Auricular hematoma, Auricular trauma Nasal Exam: negative: Active bleeding, Discharge, Dried blood, Foreign body Mouth exam: negative: Drooling, Laceration, Muffled voice, Tongue elevation - Neck Neck exam: Normal inspection. negative: Meningismus, Tenderness - Respiratory Respiratory exam: Normal lung sounds bilaterally. negative: Rales, Respiratory distress, Rhonchi, Stridor - Cardiovascular Cardiovascular Exam: Regular rate, Normal rhythm, Normal heart sounds Peripheral Pulses: 3+: Dorsalis Pedis (R) - GI/Abdominal GI/Abdominal exam: Soft. negative: Rebound, Rigid, Tenderness - Rectal Rectal exam: Deferred - exam: Deferred - Extremities Extremities exam: Tenderness, Other (Mild TTP over the dorsal aspect of the distal foot, mild STS present, strong DPP.). negative: Calf tenderness, Pedal edema - Back Back exam: Denies: CVA tenderness (R), CVA tenderness (L) - Neurological Neurological exam: Alert, Normal gait, Oriented X3 - Psychiatric Psychiatric exam: Normal affect, Normal mood - Skin Skin exam: Normal color. negative: Abrasion Type of lesion: negative: abrasion Course - Reevaluation(s) Reevaluation #1: 09/19/19 00:22 Right foot: No acute fracture identified Patient was updated on her radiograph results History and examination appear c/w contusion. Patient appears stable for discharge with instructions for symptomatic care as discussed. Disposition Disposition: Discharge Clinical Impression: Foot contusion Qualifiers: Encounter type: initial encounter Laterality: right Qualified Code(s): S90.31XA - Contusion of right foot, initial encounter Disposition: Home, Self-Care Condition: (2) Stable Instructions: Foot Contusion (ED) Additional Instructions: Return to ED if your symptoms worsen or if you have any concerns. Motrin 600 mg as directed. Follow-up with your family doctor in 3-5 days as directed. Forms: Patient Portal Access Time of Disposition: 00:23 Quality - Quality Measures Quality Measures: N/A - Blood Pressure Screening Does Patient Have Any of the Following: No Blood Pressure Classification: Pre-Hypertensive BP Reading Systolic Measurement: 126 Diastolic Measurement: 86 Screening for High Blood Pressure: < Pre-Hypertensive BP, F/U Documented > [G8950] Pre-Hypertensive Follow-up Interventions: Referral to alternative/primary care provider.
--- NOTE | 2019-09-19 00:13 | RADIOLOGY REPORT ---
EXAMINATION: Right Foot, Minimum Three Views EXAM DATE: 09/19/2019 12:07 AM TECHNIQUE: AP, lateral, and oblique INDICATION: foot injury COMPARISON: None ENCOUNTER: Initial FINDINGS: There is no acute bone or joint abnormality. There is an os naviculare. IMPRESSION: Normal exam. Dictated by: Teresa Lewis MD on 09/19/2019 12:11 AM. .
== END 2019-09-19 00:30 | disposition home or self-care (01) ==
LOC: ER 23:42
DX: S90.31XA Contusion of right foot, initial encounter (principal); W22.8XXA Striking against or struck by other objects, initial encounter; Z87.891 Personal history of nicotine dependence
CPT/HCPCS: 99283

== ENCOUNTER 2019-11-13 12:05 | Emergency (ER) | payer MEDICAID ==
[2019-11-13] MEDS ORDERED: PROMETHAZINE HCL 25 MG/ML VIAL IM ONE (12:34)
[2019-11-13] MEDS ORDERED: KETOROLAC 30 MG/ML VIAL IM ONE (12:34)
--- NOTE | 2019-11-13 13:17 | Emergency Department Record ---
History of Present Illness - General Chief Complaint: Headache Migraine Stated Complaint: I NEED A MIGRAINE MARTINI/HEADACHE Time Seen by Provider: 11/13/19 12:26 Source: Patient Mode of Arrival: Ambulatory Limitations: No limitations - History of Present Illness Initial Comments: pt is having her typical migraine with nausea, no vomiting MD Complaint: "Migraine" Onset/Timin -: Days(s) Onset Description: Gradual Location: Right Severity scale (1-10): 9 Quality: Similar to previous headaches, Other Worsens With: Light Treatments Prior to Arrival: Other - Related Data Allergies Allergy/AdvReac Type Severity Reaction Status Date / Time hydrocodone bitartrate Allergy Unknown pt states Verified 11/13/19 12:22 she passes out and vomits Travel Screening - Travel/Exposure Within Last 30 Days Have you traveled within the last 30 days?: No - Travel/Exposure Within Last Year Have you traveled outside the [place] in the last year?: No - Additonal Travel Details Have you been exposed to anyone with a communicable illness?: No - Travel Symptoms Symptom Screening: Headache Review of Systems Reviewed: No additional complaints except as noted below Constitutional: Reports: As per HPI. Denies: Chills, Fever, Malaise, Night sweats, Weakness, Weight change Eyes: Reports: As per HPI. Denies: Eye discharge, Eye pain, Photophobia, Vision change ENT: Reports: As per HPI. Denies: Congestion, Dental pain, Ear pain, Epistaxis, Hearing loss, Throat pain Respiratory: Reports: As per HPI. Denies: Cough, Dyspnea, Hemoptysis, Stridor, Wheezes Cardiovascular: Reports: As per HPI. Denies: Arrhythmia, Chest pain, Dyspnea on exertion, Edema, Murmurs, Orthopnea, Palpitations, Paroxysmal nocturnal dyspnea, Rheumatic Fever, Syncope Endocrine: Reports: As per HPI. Denies: Fatigue, Heat or cold intolerance, Polydipsia, Polyuria Gastrointestinal: Reports: As per HPI. Denies: Abdominal pain, Constipation, Diarrhea, Hematemesis, Hematochezia, Melena, Nausea, Vomiting Genitourinary: Reports: As per HPI. Denies: Abnormal menses, Discharge, Dy spareunia, Dysuria, Frequency, Hematuria, Incontinence, Retention, Urgency Musculoskeletal: Reports: As per HPI. Denies: Arthralgia, Back pain, Gout, Joint swelling, Myalgia, Neck pain Skin: Reports: As per HPI. Denies: Bruising, Change in color, Change in hair/nails, Lesions, Pruritus, Rash Neurological: Reports: As per HPI. Denies: Abnormal gait, Confusion, Headache, Numbness, Paresthesias, Seizure, Tingling, Tremors, Vertigo, Weakness Psychiatric: Reports: As per HPI. Denies: Anxiety, Auditory hallucinations, Depression, Homicidal thoughts, Suicidal thoughts, Visual hallucinations Hematological/Lymphatic: Reports: As per HPI. Denies: Anemia, Blood Clots, Easy bleeding, Easy bruising, Swollen glands Past Medical History - SOCIAL HISTORY Smoking Status: Light tobacco smoker (<10/day) Alcohol Use: None Drug Use: None - RESPIRATORY Hx Respiratory Disorders: Yes Hx COPD: Yes Hx Pneumonia: Yes Hx Sleep Apnea: Yes Hx of CPAP: Yes (sometimes) - CARDIOVASCULAR Hx Cardio Disorders: No Comment:: n/a - NEURO Hx Neuro Disorders: Yes Hx Headaches: Yes Hx of Migraines: Yes - GI Hx GI Disorders: Yes Hx Abdominal Pain: Yes Hx Reflux: Yes Hx Nausea/Vomiting: Yes Hx Rectal Bleeding: Yes - Hx Genitourinary Disorders: No Comment:: ovarian cyst-surgery scheduled for 08/2018 - ENDOCRINE Hx Endocrine Disorders: Yes Hx Diabetes: No Hx Thyroid Disease: Yes - MUSCULOSKELETAL Hx Musculoskeletal Disorders: Yes - PSYCH Hx Psych Problems: Yes Hx Anxiety: Yes Hx Behavior Problems: Yes Hx Depression: Yes - HEMATOLOGY/ONCOLOGY Hx Hematology/Oncology Disorders: No Family Medical History Any Significant Family History?: No Hx Cancer: Grandparents Hx Diabetes: Grandparents Hx Heart Disease: Grandparents *Heart Comment: heart failure Hx HTN: Father Hx Seizures: Grandparents Hx Stroke: Grandparents *Stroke Comment: grandmother Physical Exam - General General Appearance: Alert, Oriented x3, Cooperative, Mild distress - Head Head exam: Normal inspection - Eye Eye exam: Normal appearance, PERRL, EOMI Pupils: Normal accommodation - ENT ENT exam: Normal exam, Mucous membranes moist, Normal external ear exam, Normal orophraynx Ear exam: Normal external inspection. negative: External canal tenderness Nasal Exam: Normal inspection. negative: Discharge, Sinus tenderness Mouth exam: Normal external inspection, Tongue normal Teeth exam: Normal inspection. negative: Dental caries Throat exam: Normal inspection. negative: Tonsillar erythema, Tonsillar exudate - Neck Neck exam: Normal inspection, Full ROM. negative: Tenderness - Respiratory Respiratory exam: Normal lung sounds bilaterally. negative: Respiratory distress - Cardiovascular Cardiovascular Exam: Regular rate, Normal rhythm, Normal heart sounds - GI/Abdominal GI/Abdominal exam: Soft, Normal bowel sounds. negative: Tenderness - Rectal Rectal exam: Deferred - exam: Deferred - Extremities Extremities exam: Normal inspection, Full ROM, Normal capillary refill. negative: Tenderness - Back Back exam: Reports: Normal inspection, Full ROM. Denies: Muscle spasm, Rash noted, Tenderness - Neurological Neurological exam: Alert, Normal gait, Oriented X3, Reflexes normal - Psychiatric Psychiatric exam: Normal affect, Normal mood - Skin Skin exam: Dry, Intact, Normal color, Warm Course Vital Signs 11/13/19 12:15 Temperature 97.6 F Pulse Rate 74 Respiratory 20 Rate Blood Pressure 127/93 Pulse Ox 99 - Reevaluation(s) Reevaluation #1: 11/13/19 13:15 pt feels better Disposition Disposition: Discharge Clinical Impression: Migraine Qualifiers: Migraine type: unspecified Status migrainosus presence: without status migrainosus Intractability: not intractable Qualified Code(s): G43.909 - Migraine, unspecified, not intractable, without status migrainosus Disposition: Home, Self-Care Condition: (1) Good Instructions: Migraine Headache (ED) Additional Instructions: follow up with family doctor. return sooner if worse Quality - Quality Measures Quality Measures: N/A - Blood Pressure Screening Does Patient Have Any of the Following: No Blood Pressure Classification: Hypertensive Reading Systolic Measurement: 127 Diastolic Measurement: 93 Screening for High Blood Pressure: < Pre-Hypertensive BP, F/U Documented > [G8950] Pre-Hypertensive Follow-up Interventions: Follow-up with rescreen every year.
== END 2019-11-13 13:29 | disposition home or self-care (01) ==
LOC: ER 12:05
DX: G43.909 Migraine, unspecified, not intractable, without status migrainosus (principal); R11.0 Nausea; J44.9 Chronic obstructive pulmonary disease, unspecified; F17.210 Nicotine dependence, cigarettes, uncomplicated
CPT/HCPCS: 96372; 99284; J1885; J2550

== ENCOUNTER 2019-11-27 18:51 | Emergency (ER) | payer SELFPAY ==
--- NOTE | 2019-11-27 19:04 | Emergency Department Record ---
History of Present Illness - General Chief complaint: Extremity Problem Stated complaint: R FOOT INJURY Time Seen by Provider: 11/27/19 18:54 Source: Patient Mode of Arrival: Ambulatory Limitations: No limitations - History of Present Illness Initial comments: 34 yo female presents to ED for evaluation of pain to the right foot following injury while at work. Patient reports that she dropped a 24-case of soda onto the right foot resulting in pain symptoms. Patient has been able to ambulate on the foot following her injury, denies injury proximal to the mid-foot. MD Complaint: Extremity pain Onset/Timin -: Hour(s) Location: Right, Foot Severity scale (1-10): 6 Quality: Aching, Sharp Consistency: Constant, Intermittent Improves with: Rest - Related Data Allergies Allergy/AdvReac Type Severity Reaction Status Date / Time hydrocodone bitartrate Allergy Unknown pt states Verified 11/27/19 18:59 she passes out and vomits Travel Screening - Travel/Exposure Within Last 30 Days Have you traveled within the last 30 days?: Yes Location Detail:: [place] - Travel/Exposure Within Last Year Have you traveled outside the [place] in the last year?: No - Additonal Travel Details Have you been exposed to anyone with a communicable illness?: No - Travel Symptoms Symptom Screening: None Review of Systems Constitutional: Denies: Chills, Fever, Malaise, Night sweats Eyes: Denies: Eye discharge, Eye pain ENT: Denies: Congestion, Ear pain, Epistaxis Respiratory: Denies: Cough, Dyspnea Cardiovascular: Denies: Chest pain, Dyspnea on exertion Endocrine: Denies: Fatigue, Heat or cold intolerance Gastrointestinal: Denies: Abdominal pain, Nausea, Vomiting Genitourinary: Denies: Incontinence, Retention Musculoskeletal: Reports: Arthralgia. Denies: Back pain, Gout, Joint swelling Skin: Denies: Bruising, Change in color Neurological: Denies: Abnormal gait, Confusion, Headache, Tingling, Tremors Psychiatric: Denies: Anxiety Hematological/Lymphatic: Denies: Anemia, Blood Clots Past Medical History - SOCIAL HISTORY Smoking Status: Light tobacco smoker (<10/day) Alcohol Use: None Drug Use: None - RESPIRATORY Hx Respiratory Disorders: Yes Hx COPD: Yes Hx Pneumonia: Yes Hx Sleep Apnea: Yes Hx of CPAP: Yes (sometimes) - CARDIOVASCULAR Hx Cardio Disorders: No Comment:: n/a - NEURO Hx Neuro Disorders: Yes Hx Headaches: Yes Hx of Migraines: Yes - GI Hx GI Disorders: Yes Hx Abdominal Pain: Yes Hx Reflux: Yes Hx Nausea/Vomiting: Yes Hx Rectal Bleeding: Yes - Hx Genitourinary Disorders: No Comment:: ovarian cyst-surgery scheduled for 08/2018 - ENDOCRINE Hx Endocrine Disorders: Yes Hx Diabetes: No Hx Thyroid Disease: Yes - MUSCULOSKELETAL Hx Musculoskeletal Disorders: Yes - PSYCH Hx Psych Problems: Yes Hx Anxiety: Yes Hx Behavior Problems: Yes Hx Depression: Yes - HEMATOLOGY/ONCOLOGY Hx Hematology/Oncology Disorders: No Family Medical History Any Significant Family History?: Yes Hx Cancer: Grandparents Hx Diabetes: Grandparents Hx Heart Disease: Grandparents *Heart Comment: heart failure Hx HTN: Father Hx Seizures: Grandparents Hx Stroke: Grandparents *Stroke Comment: grandmother Physical Exam - General General Appearance: Alert, Oriented x3, Cooperative, No acute distress, Other (Patient is able to weight bear without difficulty) Limitations: No limitations - Head Head exam: Atraumatic, Normocephalic, Normal inspection Head exam detail: negative: Abrasion, Contusion, Lezama's sign, General tenderness, Hematoma, Laceration - Eye Eye exam: Normal appearance. negative: Conjunctival injection, Periorbital swelling, Periorbital tenderness, Scleral icterus - ENT Ear exam: negative: Auricular hematoma, Auricular trauma Nasal Exam: negative: Active bleeding, Discharge, Dried blood, Foreign body Mouth exam: negative: Drooling, Laceration, Muffled voice, Tongue elevation - Neck Neck exam: Normal inspection. negative: Meningismus, Tenderness - Respiratory Respiratory exam: Normal lung sounds bilaterally. negative: Respiratory distress, Rhonchi, Stridor, Wheezes - Cardiovascular Cardiovascular Exam: Regular rate, Normal rhythm, Normal heart sounds Peripheral Pulses: 3+: Dorsalis Pedis (R) - GI/Abdominal GI/Abdominal exam: Soft. negative: Distended, Rebound, Rigid, Tenderness - Rectal Rectal exam: Deferred - exam: Deferred - Extremities Extremities exam: Tenderness (TTP over the dorsal aspect of the right mid-foot on examination, strong DPP, no pain over the ankle on examination. No STS or ecchymosis is present on examination.). negative: Calf tenderness, Pedal edema - Back Back exam: Denies: CVA tenderness (R), CVA tenderness (L) - Neurological Neurological exam: Alert, Normal gait, Oriented X3 - Psychiatric Psychiatric exam: Normal affect, Normal mood - Skin Skin exam: Normal color. negative: Abrasion Type of lesion: negative: abrasion Course Vital Signs 11/27/19 18:52 Temperature 98.2 F Pulse Rate 97 H Respiratory 18 Rate Blood Pressure 121/78 Pulse Ox 97 - Reevaluation(s) Reevaluation #1: 11/27/19 19:55 Right Foot: No acute fracture identified Patient was updated on all results, recommended symptomatic care with ice, Ibuprofen as directed. Patient appears stable for discharge at this time. Disposition Disposition: Discharge Clinical Impression: Contusion of right foot Qualifiers: Encounter type: initial encounter Qualified Code(s): S90.31XA - Contusion of right foot, initial encounter Disposition: Home, Self-Care Condition: (2) Stable Instructions: Contusion in Adults (ED) Additional Instructions: Return to ED if your symptoms worsen or if you have any concerns. Ice, ibuprofen as directed. Follow-up with your family doctor in 3-5 days as directed. Forms: Patient Portal Access Time of Disposition: 19:56 Quality - Quality Measures Quality Measures: N/A - Blood Pressure Screening Does Patient Have Any of the Following: No Blood Pressure Classification: Pre-Hypertensive BP Reading Systolic Measurement: 121 Diastolic Measurement: 78 Screening for High Blood Pressure: < Pre-Hypertensive BP, F/U Documented > [G8950] Pre-Hypertensive Follow-up Interventions: Referral to alternative/primary care provider.
--- NOTE | 2019-11-27 19:50 | RADIOLOGY REPORT ---
EXAMINATION: FOOT, RIGHT 3 VIEWS EXAM DATE: 11/27/2019 7:21 PM INDICATION: foot injury ENCOUNTER: Initial FINDINGS: Comparison with 09/19/2019. The examination shows no evidence of fracture, dislocation, or soft tiss ue swelling. IMPRESSION: Normal. Dictated by: Lencho Venegas MD on 11/27/2019 7:43 PM. .
== END 2019-11-27 20:00 | disposition home or self-care (01) ==
LOC: ER 18:51
DX: S90.31XA Contusion of right foot, initial encounter (principal); W22.8XXA Striking against or struck by other objects, initial encounter; Y99.0 Civilian activity done for income or pay; F17.210 Nicotine dependence, cigarettes, uncomplicated
CPT/HCPCS: 99283

== ENCOUNTER 2019-12-14 21:18 | Emergency (ER) | payer MEDICAID ==
--- NOTE | 2019-12-14 21:33 | Emergency Department Record ---
History of Present Illness - General Chief complaint: Flu Like Symptoms Stated complaint: EVERYTHING HURTS! Time Seen by Provider: 12/14/19 21:20 Source: Patient Mode of Arrival: Ambulatory Limitations: No limitations - History of Present Illness Initial comments: 34 yo female presents to ED stating "everything hurts, I think my thyroid is off". Patient reports similar symptoms with hypothyroidism previously, denies fevers, chills, cough, or recent illness. Patient denies receiving an influenza vaccination. Patient denies changes in medications, and denies history of inflammatory arthritis previously. Patient denies specific joint pain on exam ination. MD Complaint: Generalized weakness -: Days(s) Location: Generalized Severity: Moderate Quality: Aching Consistency: Constant Improves with: None Worsens with: None Associated Symptoms: Denies other symptoms - Satish Coma Scale Eye Response: (4) Open spontaneously Motor Response: (6) Obeys commands Verbal Response: (5) Oriented Satish Total: 15 - Related Data Allergies Allergy/AdvReac Type Severity Reaction Status Date / Time hydrocodone bitartrate Allergy Unknown pt states Verified 11/27/19 18:59 she passes out and vomits Review of Systems Constitutional: Denies: Chills, Fever, Malaise, Night sweats Eyes: Denies: Eye discharge, Eye pain ENT: Denies: Congestion, Ear pain, Epistaxis Respiratory: Denies: Cough, Dyspnea Cardiovascular: Denies: Chest pain, Dyspnea on exertion Endocrine: Reports: Fatigue. Denies: Heat or cold intolerance Gastrointestinal: Denies: Abdominal pain, Nausea, Vomiting Genitourinary: Denies: Incontinence, Retention Musculoskeletal: Reports: Myalgia. Denies: Arthralgia, Back pain Skin: Denies: Bruising, Change in color Neurological: Denies: Abnormal gait, Confusion, Headache, Seizure Psychiatric: Denies: Anxiety Hematological/Lymphatic: Denies: Anemia, Blood Clots Past Medical History - SOCIAL HISTORY Smoking Status: Light tobacco smoker (<10/day) Drug Use: None - RESPIRATORY Hx Respiratory Disorders: Yes Hx COPD: Yes Hx Pneumonia: Yes Hx Sleep Apnea: Yes Hx of CPAP: Yes (sometimes) - CARDIOVASCULAR Hx Cardio Disorders: No Comment:: n/a - NEURO Hx Neuro Disorders: Yes Hx Headaches: Yes Hx of Migraines: Yes - GI Hx GI Disorders: Yes Hx Abdominal Pain: Yes Hx Reflux: Yes Hx Nausea/Vomiting: Yes Hx Rectal Bleeding: Yes - Hx Genitourinary Disorders: No Comment:: ovarian cyst-surgery scheduled for 08/2018 - ENDOCRINE Hx Endocrine Disorders: Yes Hx Diabetes: No Hx Thyroid Disease: Yes - MUSCULOSKELETAL Hx Musculoskeletal Disorders: Yes - PSYCH Hx Psych Problems: Yes Hx Anxiety: Yes Hx Behavior Problems: Yes Hx Depression: Yes - HEMATOLOGY/ONCOLOGY Hx Hematology/Oncology Disorders: No Family Medical History Hx Cancer: Grandparents Hx Diabetes: Grandparents Hx Heart Disease: Grandparents *Heart Comment: heart failure Hx HTN: Father Hx Seizures: Grandparents Hx Stroke: Grandparents *Stroke Comment: grandmother Physical Exam - General General Appearance: Alert, Oriented x3, Cooperative, No acute distress Limitations: No limitations - Head Head exam: Atraumatic, Normocephalic, Normal inspection Head exam detail: negative: Abrasion, Contusion, Lezama's sign, General tenderness, Hematoma, Laceration - Eye Eye exam: Normal appearance. negative: Conjunctival injection, Periorbital swelling, Periorbital tenderness, Scleral icterus - ENT Ear exam: negative: Auricular hematoma, Auricular trauma Nasal Exam: negative: Active bleeding, Discharge, Dried blood, Foreign body Mouth exam: negative: Drooling, Laceration, Muffled voice, Tongue elevation - Neck Neck exam: Normal inspection. negative: Meningismus, Tenderness - Respiratory Respiratory exam: Normal lung sounds bilaterally. negative: Rales, Respiratory distress, Rhonchi, Stridor - Cardiovascular Cardiovascular Exam: Regular rate, Normal rhythm, Normal heart sounds - GI/Abdominal GI/Abdominal exam: Soft. negative: Rebound, Rigid, Tenderness - Rectal Rectal exam: Deferred - exam: Deferred - Extremities Extremities exam: Normal inspection. negative: Pedal edema, Tenderness - Back Back exam: Denies: CVA tenderness (R), CVA tenderness (L) - Neurological Neurological exam: Alert, Normal gait, Oriented X3 - Psychiatric Psychiatric exam: Normal affect, Normal mood - Skin Skin exam: Normal color. negative: Abrasion Type of lesion: negative: abrasion Course Vital Signs 12/14/19 21:27 Temperature 98.1 F Pulse Rate [ 85 Right] Respiratory 20 Rate Blood Pressure 137/88 [Left Arm] Pulse Ox 97 - Reevaluation(s) Reevaluation #1: 12/14/19 22:21 Laboratory studies were reviewed and appear grossly unremarkable for an acute process except for the following: TSH > 100 Patient was updated on all results Page placed to the on-call provider for the patient's PCP. Reevaluation #2: 12/14/19 22:54 Case was discussed with Dr. Carrasco, will initiate transfer at this time. Reevaluation #3: 12/14/19 23:27 Case was discussed with Dr. Flanagan, will accept patient for transfer via private car for further evaluation. Patient is requesting to be transferred by private car as she wants to go home first, reports that her father will drive her in his truck to [facility]. Medical Decision Making - Lab Data Result diagrams: 12/14/19 21:40 12/14/19 21:40 Disposition Disposition: Transfer Clinical Impression: Myxedema Disposition: Acute Care Hospital Transfer Transfer To: [facility] Reason For Transfer: Endocrinology consultaiton Accepting Physician: Dr. Cooper Time Discussed w/Accepting Physician: 23:28 Instructions: Musculoskeletal Pain (ED) Additional Instructions: Return to ED if your symptoms worsen or if you have any concerns. Ibuprofen as directed. Follow-up with your family doctor in 3-5 days as directed. Forms: Patient Portal Access Time of Disposition: 23:01 Quality - Quality Measures Quality Measures: N/A - Blood Pressure Screening Does Patient Have Any of the Following: No Blood Pressure Classification: Pre-Hypertensive BP Reading Systolic Measurement: 133 Diastolic Measurement: 88 Screening for High Blood Pressure: < Pre-Hypertensive BP, F/U Documented > [G8950] Pre-Hypertensive Follow-up Interventions: Referral to alternative/primary care provider.
[2019-12-14 21:53] LABS: ABSOLUTE NEUTROPHIL COUNT 4.43; BASO % 1.5 % (0-6); GRAN % 50.7 % (47-80); HEMATOCRIT 43.8 % (35.0-47.0); HEMOGLOBIN 14.5 gm/dl (11.6-16.0); LYMPH % 36.5 % (16-45); MEAN CORPUSCULAR HEMOGLOBIN 30.8 pg (27-33); MEAN CORPUSCULAR HGB CONC 33.1 g/dl (32-36); MEAN PLATELET VOLUME 9.9 fl (7.4-10.4); MONO % 5.3 % (0-9); PLATELET COUNT 249 K/uL (130-400); RED BLOOD COUNT 4.71 M/uL (3.80-5.40); RED CELL DISTRIBUTION WIDTH 14.3 % (11.5-14.5); WHITE BLOOD COUNT W/O DIFF 8.7 K/uL (4.2-12.2)
[2019-12-14 22:03] LABS: BLOOD UREA NITROGEN 13 mg/dL (6-20); EST GLOMERULAR FILTRATION RATE > 60 mL/min
[2019-12-14 22:04] LABS: TOTAL PROTEIN 7.5 g/dL (6.6-8.7)
[2019-12-14 22:06] LABS: GLUCOSE,RANDOM 124 mg/dL (74-109)
[2019-12-14 22:08] LABS: INFLUENZA A NEGATIVE (NEGATIVE); INFLUENZA B NEGATIVE (NEGATIVE)
[2019-12-14 22:09] LABS: ALB/GLOB RATIO 1.8 (1.1-1.8); ALBUMIN 4.8 g/dL (4.0-5.0); ALKALINE PHOSPHATASE 83 U/L (35-104); ALT/SGPT 106 U/L (<33); AST/SGOT 140 U/L (10.0-35.0)
[2019-12-14 22:20] LABS: THYROID STIMULATING HORMONE > 100.00 uIU/mL (0.270-4.20)
== END 2019-12-14 23:46 | disposition short-term general hospital (02) ==
LOC: ER 21:18
DX: E03.9 Hypothyroidism, unspecified (principal); J44.9 Chronic obstructive pulmonary disease, unspecified; R53.1 Weakness; F17.210 Nicotine dependence, cigarettes, uncomplicated
CPT/HCPCS: 80053; 84439; 84443; 85025; 87400; 99284

== ENCOUNTER 2020-01-14 21:58 | Emergency (ER) | payer MEDICAID ==
[2020-01-14] MEDS ORDERED: ASPIRIN 81 MG CHEWABLE TABLET PO ONE (22:01)
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
[2020-01-14 22:15] LABS: BASO % 1.1 % (0-6); EOS % 4.9 % (0-6); GRAN % 50.9 % (47-80); HEMATOCRIT 44.2 % (35.0-47.0); HEMOGLOBIN 14.8 gm/dl (11.6-16.0); LYMPH % 34.8 % (16-45); MEAN CELL VOLUME 93.6 fl (81-97); MEAN CORPUSCULAR HEMOGLOBIN 31.4 pg (27-33); MEAN CORPUSCULAR HGB CONC 33.5 g/dl (32-36); MEAN PLATELET VOLUME 10.2 fl (7.4-10.4); MONO % 8.3 % (0-9); PLATELET COUNT 249 K/uL (130-400); RED BLOOD COUNT 4.72 M/uL (3.80-5.40); WHITE BLOOD COUNT W/O DIFF 8.8 K/uL (4.2-12.2)
[2020-01-14 22:31] LABS: BLOOD UREA NITROGEN 10 mg/dL (6-20); CREATININE 0.8 mg/dL (0.5-0.9); EST GLOMERULAR FILTRATION RATE > 60 mL/min; TOTAL PROTEIN 8.1 g/dL (6.6-8.7)
[2020-01-14 22:33] LABS: GLUCOSE,RANDOM 101 mg/dL (74-109)
[2020-01-14 22:36] LABS: ALB/GLOB RATIO 1.3 (1.1-1.8); ALBUMIN 4.6 g/dL (4.0-5.0); ALKALINE PHOSPHATASE 81 U/L (35-104); ALT/SGPT 123 U/L (<33); AST/SGOT 137 U/L (10.0-35.0)
[2020-01-14] MEDS ORDERED: KETOROLAC 30 MG/ML VIAL IVP ONE (22:53)
--- NOTE | 2020-01-14 22:53 | RADIOLOGY REPORT ---
EXAMINATION: Two View Chest Radiographs EXAM DATE: 01/14/2020 10:47 PM TECHNIQUE: Frontal and lateral views INDICATION: chest pain COMPARISON: 07/31/2019 ENCOUNTER: Not applicable FINDINGS: The heart, mediastinum, and pulmonary vasculature are normal. No lung consolidation or pleural effu sions are present. IMPRESSION: No acute pulmonary disease process Dictated by: Luda Stewart DO on 01/14/2020 10:51 PM. .
== END 2020-01-15 00:56 | disposition home or self-care (01) ==
LOC: ER 21:58
DX: R07.89 Other chest pain (principal); R06.02 Shortness of breath; R11.0 Nausea; J44.9 Chronic obstructive pulmonary disease, unspecified; F17.210 Nicotine dependence, cigarettes, uncomplicated
CPT/HCPCS: 71046; 80053; 84484; 85025; 93005; 93010; 96374; 99284; J1885